=== PATIENT | male | born 1955 | race Caucasian/White ===

== ENCOUNTER 2016-11-28 07:35 | Inpatient (IN) | payer OTHER ==
[~2016-11-28] VITALS: Ht 180.3 cm; Wt 104.2 kg
[2016-11-28] VITALS (12 sets, daily range): BP systolic 83–122; BP diastolic 54–92; PULSE 83–108; RESP 18–22; TEMP 97.4–100; O2SAT 93–100
[2016-11-28] MEDS ORDERED: SODIUM CHLORIDE 0.9% FLUSH 5 ML FLUSH IVF PRN (07:45)
[2016-11-28] MEDS ORDERED: ASPIRIN 81 MG CHEW TAB PO ONE (07:45)
--- NOTE | 2016-11-28 08:03 | PD ---
HPI Chief Complaint: Chest Pain Time Seen by Provider: 07:45 Travel History International Travel<30 days: No Contact w/Intl Traveler<30days: No Traveled to known affect area: No History of Present Illness HPI 61-year-old male with history of COPD, brought in by ambulance as a cardiac alert for evaluation of chest pain, shortness of breath, and abnormal EKG. The patient reports that before going to sleep last night he ate a sandwich and afterwards he felt and indigestion type feeling in his abdomen that radiated up into his chest and bilateral shoulders. Symptoms resolved and he was able to go to sleep. When he awoke this morning his symptoms returned. He was given one spray of sublingual nitroglycerin by EMS with some improvement in symptoms. Upon arrival to the emergency department the patient is in obvious distress secondary to chest pain. He is diaphoretic. The symptoms resolved approximately 5 minutes after arrival and the patient was able to give more history. He denies history of cardiac disease. There is family history of cardiac disease. He is a smoker. He is having some shortness of breath. No paresthesias or motor deficits. PFSH Past Medical History COPD: Yes Diminished Hearing: Yes Social History Alcohol Use: Yes ([place] ) Tobacco Use: Yes Substance Use: No Allergies-Medications (Allergen,Severity, Reaction): Coded Allergies: No Known Allergies (Unverified , 11/28/16) Review of Systems Except as stated in HPI: all other systems reviewed are Neg Physical Exam Narrative GENERAL: Well-developed, well-nourished, moderate distress secondary to pain, no respiratory distress. SKIN: Pale, diaphoretic. HEAD: Atraumatic. Normocephalic. EYES: Pupils equal and round. No scleral icterus. No injection or drainage. ENT: No nasal bleeding or discharge. NECK: Trachea midline. No JVD. CARDIOVASCULAR: Regular rate and rhythm. Distal pulses brisk and equal bilaterally. RESPIRATORY: No accessory muscle use. Clear to auscultation. Breath sounds equal bilaterally. GASTROINTESTINAL: Abdomen soft, non-tender, nondistended. MUSCULOSKELETAL: No obvious deformities. No clubbing. No cyanosis. No edema. NEUROLOGICAL: Awake and alert. No obvious cranial nerve deficits. Motor grossly within normal limits. Normal speech. PSYCHIATRIC: Appropriate mood and affect; insight and judgment normal. Data Data Last Documented VS Vital Signs Date Time Temp Pulse Resp B/P Pulse Ox O2 Delivery O2 Flow Rate FiO2 11/28/16 07:54 97.4 102 22 116/67 100 Nasal Cannula 4 104/77 Orders Basic Metabolic Panel (Bmp) (11/28/16 07:45) Ckmb (Isoenzyme) Profile (11/28/16 07:45) Complete Blood Count With Diff (11/28/16 07:45) Magnesium (Mg) (11/28/16 07:45) Prothrombin Time / Inr (Pt) (11/28/16 07:45) Act Partial Throm Time (Ptt) (11/28/16 07:45) Troponin I (11/28/16 07:45) Lipase (11/28/16 07:45) Chest, Single Ap (11/28/16 07:45) Ecg Monitoring (11/28/16 07:45) Bilateral Bp Monitoring (11/28/16 07:45) Iv Access Insert/Monitor (11/28/16 07:45) Oximetry (11/28/16 07:45) Oxygen Administration (11/28/16 07:45) Aspirin Chew (Aspirin Chew) (11/28/16 07:45) Sodium Chloride 0.9% Flush (Ns Flush) (11/28/16 07:45) Admit Order (Ed Use Only) (11/28/16 08:03) I-Stat Creatinine (11/28/16 07:50) I-Stat Profile (11/28/16 07:50) CKMB (11/28/16 08:45) CKMB% (11/28/16 08:45) Labs Laboratory Tests Test 11/28/16 07:45 Blood Type O NEGATIVE Antibody Screen NEGATIVE Crossmatch Leukocyte-Reduced Red Blood Cells Blood Bank Comment MDM Medical Decision Making Medical Screen Exam Complete: Yes Emergency Medical Condition: Yes Interpretation(s) EKG: Sinus, rate 95, normal axis, normal intervals, ST depressions in inferior and lateral precordial leads Differential Diagnosis UT, ACS, PE, dissection, pneumonia, pericarditis Narrative Course The patient arrives pale and diaphoretic and is in significant distress secondary to pain. After about 5 minutes of arrival, symptoms seem to have resolved. Several minutes later his symptoms recurred. I discussed this with on-call pararescue craftsman Dr. Almonte who was also able to review the EKG. Given the patient's symptoms with EKG findings suggestive of ischemia, STEMI alert was called for emergent cardiac cath. The patient was made aware of this plan. Diagnosis Primary Impression: Chest pain Qualified Code: R07.9 - Chest pain, unspecified type Additional Impression: Abnormal EKG Admitting Information Admitting Physician Requests: Admit Jefry Rico MD Nov 28, 2016 08:03
[2016-11-28] MEDS ORDERED: IOHEXOL 350 MG/ML 50 ML BTL (for Cath Lab) OTHER ONE (08:10)
[2016-11-28] MEDS ORDERED: IOHEXOL 350 MG/ML 100 ML BTL (for Cath Lab) OTHER ONE (08:10)
[2016-11-28] MEDS ORDERED: HEPARIN-NS/PF INJ 500 ML ONE (08:15)
--- NOTE | 2016-11-28 08:15 | RADRPT ---
EXAM DATE/TIME: 11/28/2016 07:49 [facility] COMPARISON: No previous studies available for comparison. INDICATIONS : Chest pain and very short of breath, STEMI alert MEDICAL HISTORY : None. SURGICAL HISTORY : None. ENCOUNTER: Initial ACUITY: 1 day PAIN SCORE: 10/10 LOCATION: Bilateral chest FINDINGS: There is moderate congestive failure with cardiomegaly interstitial edema. There is no pleural effus ion or pneumothorax. CONCLUSION: Cardiomegaly with moderate congestive failure. Maicol Mccloud MD FACR on November 28, 2016 at 8:12 Board Certified Radiologist. This report was verified electronically.
[2016-11-28 08:25] LABS: I-STAT POTASSIUM 4.1 MMOL/L (3.5-4.9); I-STAT SODIUM 144 MMOL/L (138-146)
[2016-11-28] MEDS ORDERED: MIDAZOLAM HCL 2 MG/2 ML VIAL ONE (08:26)
[2016-11-28] MEDS ORDERED: STERILE WATER FOR INJECTION 10 ML VIAL ONE (08:30)
[2016-11-28] MEDS ORDERED: BIVALIRUDIN 250 MG VIAL ONE (08:30)
[2016-11-28 08:40] LABS: ANION GAP 16 MEQ/L (5-15); BLOOD UREA NITROGEN 36 MG/DL (7-18); CHLORIDE 113 MEQ/L (98-107); GLOMERULAR FILTRATION RATE 46 ML/MIN (>89); MAGNESIUM 2.4 MG/DL (1.5-2.5); POTASSIUM 4.2 MEQ/L (3.5-5.1); SODIUM (NA) 143 MEQ/L (136-145)
[2016-11-28 08:48] LABS: CREATINE KINASE 164 U/L (39-308)
[2016-11-28] MEDS ORDERED: FUROSEMIDE 40 MG/4 ML VIAL ONE (08:50)
[2016-11-28] MEDS ORDERED: HEPARIN-D5W INJ 250 ML ONE (08:59)
[2016-11-28 09:06] LABS: AUTOMATED NEUTROPHIL # 0.4 TH/MM3 (1.8-7.7); BASOPHIL % 0.5 % (0.0-2.0); EOSINOPHIL % 0.1 % (0.0-4.0); LYMPH % 66.8 % (9.0-44.0); LYMPHOCYTE # 1.2 TH/MM3 (1.0-4.8); MEAN CELL VOLUME 108.2 FL (80.0-100.0); MEAN CORPUSCULAR HEMOGLOBIN 36.7 PG (27.0-34.0); MEAN CORPUSCULAR HGB CONC 33.9 % (32.0-36.0); MONO % 7.2 % (0.0-8.0); NEUT % 25.4 % (16.0-70.0); PLATELET COUNT 285 TH/MM3 (150-450); RED BLOOD COUNT 1.01 MIL/MM3 (4.50-5.90); RED CELL DISTRIBUTION WIDTH 22.5 % (11.6-17.2); WHITE BLOOD COUNT 1.7 TH/MM3 (4.0-11.0)
[2016-11-28 09:11] LABS: HEMATOCRIT 10.9 % (39.0-51.0); HEMO FLAGS AUTO DIFF
[2016-11-28 09:15] LABS: APTT (PATIENT) 23.5 SEC (24.3-30.1); CKMB 7.2 NG/ML (0.5-3.6); INTERNATIONAL NORMALIZED RATIO 1.3 RATIO; PROTHROMBIN TIME - PATIENT 14.7 SEC (9.8-11.6)
[2016-11-28] MEDS ORDERED: ONDANSETRON HCL 4 MG/2 ML VIAL IV PRN ×2 (09:15→10:45)
[2016-11-28] MEDS ORDERED: METOCLOPRAMIDE HCL 10 MG/2 ML VIAL IV PRN (09:15)
[2016-11-28] MEDS ORDERED: LORazepam 2 MG/ML VIAL IV PRN (09:15)
[2016-11-28] MEDS ORDERED: SODIUM CHLOR 0.9% 250 ML INJ 250 ML IV PRN (09:15)
[2016-11-28] MEDS ORDERED: ATROPINE SULFATE 1 MG/ML VIAL IV PRN (09:15)
[2016-11-28] MEDS ORDERED: LIDOCAINE HCL 1% 50 ML VIAL INFIL PRN (09:15)
[2016-11-28] MEDS ORDERED: BACITRACIN OINT 0.9 GM PKT TOP ONE (09:15)
[2016-11-28 09:44] LABS: POLYS (SEG NEUTROPHILS) 25 % (16-70); WBC DIFF SAMPLE 100
[2016-11-28] MEDS ORDERED: FUROSEMIDE 20 MG/2 ML VIAL IV PUSH ONE ×2 (09:45→18:30)
[2016-11-28] MEDS ORDERED: PAPAVERINE INJ 60 MG, NITROGLYCERIN INJ 100 MCG, DILTIAZEM INJ 100 MG in SODIUM CHLORID... IRRIGATION SCH (09:45)
[2016-11-28] MEDS ORDERED: CEFAZOLIN INJ 500 MG in SODIUM CHLORIDE 0.9% IRR BTL 500 ML IRRIGATION SCH (09:45)
[2016-11-28] MEDS ORDERED: INSULIN REGULAR (IV INFUSION) 100 UNITS in SODIUM CHLORIDE 0.9% INJ 100 ML IV SCH (09:45)
[2016-11-28] MEDS ORDERED: SODIUM CHLORIDE 0.9% FLUSH 5 ML FLUSH IV FLUSH PRN ×2 (09:45→10:45)
[2016-11-28] MEDS ORDERED: METOPROLOL TARTRATE 25 MG TAB PO SCH (09:45)
[2016-11-28] MEDS ORDERED: CHLORHEXIDINE GLUCONATE 4% SOLN 120 ML BTL TOPICAL SCH (09:45)
[2016-11-28 09:47] LABS: NEUTROPHIL # MANUAL DIFF 0.4 TH/MM3 (1.8-7.7)
[2016-11-28 09:48] LABS: PLATELET ESTIMATE SMEAR NORMAL (NORMAL); PLATELET MORPHOLOGY NORMAL (NORMAL); SCAN/DIFF FINAL DIFF MANUAL
[2016-11-28 10:15] LABS: INDIRECT BILIRUBIN 0.4 MG/DL (0.0-0.8); TOTAL BILIRUBIN ADULT 0.6 MG/DL (0.2-1.0)
[2016-11-28 10:20] LABS: BLOOD, URINE NEG (NEG); GLUCOSE,URINE NEG (NEG); KETONE, URINE NEG (NEG); NITRITE,URINE NEG (NEG); URINE COLOR LIGHT-YELLOW (YELLW/STRAW)
[2016-11-28 10:21] LABS: COMMENT (UR) CATH-CULT NOT IND; CULTURE IF INDICATED CATH CULTURE NOT IND
--- NOTE | 2016-11-28 10:40 | PD.CONS ---
HPI Service Critical Care Medicine Consult Requested By Dr. Almonte Reason for Consult CCM management Primary Care Physician Unknown History of Present Illness 61 yo male.. DOA 11/28/16. PMH LBP, tobaccoism, colon polyps, R ing hernia repair x2, C -spine x2 and occ ETOH ([place]) presents to ED with ongoing "burning " CP present for several weeks exacerbated today. At rest. Received NTG some relief. EKG changes, STT - inf and lat leads. Takes ASA daily since bro from "his aorta" Hgb low ~ 3. Brown stools acc to pt. Hx colon polys - benign 2 years ago w/VACath lab Cath - EF 35%; 90% LMain, 30% prox LAD, 95% mid LAD, 80% Cx, 20% OM1, 100% RCA. IABP placed augmanted ~110. Currently CP free on 5L NC Review of Systems Constitutional: COMPLAINS OF: Fatigue, Weight loss, DENIES: Fever, Weight gain Endocrine: DENIES: Polydipsia, Polyuria Eyes: DENIES: Blurred vision, Double Vision Ears, nose, mouth, throat: DENIES: Tinnitus, Epistaxis, Sinus Pain Respiratory: COMPLAINS OF: Shortness of breath, DENIES: Apneas, Cough, Sputum production Cardiovascular: COMPLAINS OF: Chest pain, Dyspnea on Exertion, DENIES: Palpitations, Syncope, Lower Extremity Edema Gastrointestinal: DENIES: Abdominal pain, Black stools, Bloody stools, Constipation, Nausea, Vomiting Genitourinary: DENIES: Urgency Musculoskeletal: COMPLAINS OF: Neck pain, DENIES: Back pain Integumentary: DENIES: Abnormal pigmentation Hematologic/lymphatic: DENIES: Bruising Immunologic/allergic: DENIES: Eczema Neurologic: DENIES: Abnormal gait Psychiatric: DENIES: Anxiety, Confusion Past Family Social History Allergies: Coded Allergies: No Known Allergies (Unverified , 11/28/16) Past Medical History Tobaccoism, Colon polyps DDD C-spine LBP Past Surgical History R ing hernia x 2 C3-5 C spine fusion Polypectomy x 2 Reported Medications ASA Active Ordered Medications reviewed in EMR Family History F - lung CA B- Aorta Social History 5 cig /day since age 18 Occ ETOH No IVDU Physical Exam Vital Signs Vital Signs Date Time Temp Pulse Resp B/P Pulse Ox O2 Delivery O2 Flow Rate FiO2 11/28/16 08:35 99 Nasal Cannula 4.00 11/28/16 08:35 99 4.00 11/28/16 07:54 97.4 102 22 116/67 100 Nasal Cannula 4 104/77 11/28/16 07:54 98 Nasal Cannula 4 11/28/16 07:51 22 100 4 11/28/16 07:38 108 22 116/67 Physical Exam GENERAL: 61 yo M, Crit ill in bed w/ IABP NAD SKIN: PAle and dry. No rash HEAD: Atraumatic. Normocephalic. EYES: Pupils equal and round 3 m b/l and rx. No scleral icterus. No injection or drainage. ENT: No nasal bleeding or discharge. Mucous membranes pink and moist. NECK: Trachea midline. No JVD. CARDIOVASCULAR: Regular rate and rhythm. S1, S2. IABP augmentation RESPIRATORY: No accessory muscle use. Clear to auscultation. Breath sounds equal bilaterally. GASTROINTESTINAL: Abdomen soft, non-tender, nondistended. Hypo BS+ MUSCULOSKELETAL: Extremities without significant edema. No obvious deformities. IABP in R groin C/D/I NEUROLOGICAL: Awake and alert. No obvious cranial nerve deficits. Motor grossly within normal limits. Five out of 5 muscle strength in the arms and legs. Normal speech. PSYCHIATRIC: Appropriate mood and affect; insight and judgment normal. Laboratory Laboratory Tests Test 11/28/16 11/28/16 11/28/16 11/28/16 07:45 08:45 08:55 09:02 Blood Type O NEGATIVE O NEGATIVE Antibody Screen NEGATIVE Crossmatch Leukocyte-Reduced Leukocyte-Reduced Red Blood Red Blood Cells Cells Blood Bank Comment White Blood Count 1.7 Red Blood Count 1.01 Hemoglobin 3.7 Bedside Hemoglobin Hematocrit 10.9 Bedside Hematocrit LESS THAN 15.0 Mean Corpuscular Volume 108.2 Mean Corpuscular Hemoglobin 36.7 Mean Corpuscular Hemoglobin 33.9 Concent Red Cell Distribution Width 22.5 Platelet Count 285 Mean Platelet Volume 8.5 Neutrophils (%) (Auto) 25.4 Lymphocytes (%) (Auto) 66.8 Monocytes (%) (Auto) 7.2 Eosinophils (%) (Auto) 0.1 Basophils (%) (Auto) 0.5 Neutrophils # (Auto) 0.4 Lymphocytes # (Auto) 1.2 Monocytes # (Auto) 0.1 Eosinophils # (Auto) 0.0 Basophils # (Auto) 0.0 CBC Comment AUTO DIFF Differential Total Cells 100 Counted Neutrophils % (Manual) 25 Lymphocytes % 73 Monocytes % 2 Neutrophils # (Manual) 0.4 Differential Comment FINAL DIFF MANUAL Platelet Estimate NORMAL Platelet Morphology Comment NORMAL Prothrombin Time 14.7 Prothromb Time International 1.3 Ratio Activated Partial 23.5 Thromboplast Time Fibrinogen 224 Bedside Sodium 144 Sodium Level 143 Bedside Potassium 4.1 Potassium Level 4.2 Bedside Chloride 112 Chloride Level 113 Carbon Dioxide Level 14.0 Anion Gap 16 Bedside Blood Urea Nitrogen 36 Blood Urea Nitrogen 36 Creatinine 1.54 Bedside Creatinine 1.2 Estimat Glomerular Filtration 46 Rate Bedside Glucose 151 Random Glucose 152 Calcium Level 7.8 Magnesium Level 2.4 Total Bilirubin 0.6 Direct Bilirubin 0.2 Indirect Bilirubin 0.4 Aspartate Amino Transf 94 (AST/SGOT) Alanine Aminotransferase 117 (ALT/SGPT) Alkaline Phosphatase 100 Total Creatine Kinase 164 Creatine Kinase MB 7.2 Troponin I 1.30 Total Protein 6.4 Albumin 3.3 Amylase Level 38 Lipase 100 Test 11/28/16 09:45 Urine Color LIGHT-YELLOW Urine Turbidity CLEAR Urine pH 5.0 Urine Specific [place] 1.021 Urine Protein NEG Urine Glucose (UA) NEG Urine Ketones NEG Urine Occult Blood NEG Urine Nitrite NEG Urine Bilirubin NEG Urine Urobilinogen LESS THAN 2.0 Urine Leukocyte Esterase NEG Urine RBC LESS THAN 1 Microscopic Urinalysis Comment CATH-CULT NOT IND Result Diagram: 11/28/16 0845 11/28/16 0845 Imaging Last Impressions Chest X-Ray 11/28/16 0745 Signed Impressions: Service Date/Time: Monday, November 28, 2016 07:49 - CONCLUSION: Cardiomegaly with moderate congestive failure. Maicol Mccloud MD FACR Assessment and Plan Assessment and Plan Neuro/Psych: ETOH Acetominophen for pain [place]/MSO4 for pn management Thiamine, folic/MVI daily CV 3V CAD CG shock Cath -EF 35%. Lmain 90%, prox LAD 30%, midLAD 95%, Cx 80%, OM1 20%, RCA 100% IABP 1:1 augmented ~ 110 CTS C/S Check FLP Pulm Resp insuff Tobacco NC sats > 92% ATc2cEH Tob cessation encouraged CXR - B/L inf/effusions/CM GI Elevated transaminases NPO Protonix GI proph Colace/Senna BM regimen Hemoccult stool GI c/s w/macro anemia B12, flolate, TSH, perismear House accurate I/O's in critical ill pt FEN Replace lytes as indiated Heme Macro Anemia Leukopenia Low plts Tx 2U PRBC Hemoccult stool Fe studies GI c/s ID Monitor for infection Renal KHALIF Cr 1.5 Urine lytes/U/S renal Recx BMP in AM MSK Bedrest Access PIV. CVL if indicated Proph GI- Protonix DVT - heparin Critical Care: The total critical care time was 65 minutes. Time to perform other separately billable procedures was not included in the critical care time. Code Status Full code Discussed Condition With Pt. Care plan discussed. All ?s answered Shailesh Skelton MD Nov 28, 2016 10:40
[2016-11-28] MEDS ORDERED: ACETAMINOPHEN 325 MG TAB PO PRN (10:45)
[2016-11-28] MEDS ORDERED: MORPHINE SULFATE 4 MG/ML INJ IV PRN (10:45)
[2016-11-28] MEDS ORDERED: MISCELLANEOUS NURSING INFORMATION XX SCH (10:45)
[2016-11-28] MEDS ORDERED: RESP: ALBUTEROL 2.5 MG/IPRATROPIUM 0.5 MG NEB (PRN) INH (10:45)
[2016-11-28] MEDS ORDERED: SENNOSIDES 8.6 MG TAB PO PRN (10:45)
[2016-11-28] MEDS ORDERED: CHLORHEXIDINE GLUCONATE 2 % 1 PACK (2 CLOTHS) TOP PRN (10:45)
--- NOTE | 2016-11-28 13:10 | MH ---
cc: WALLY COONEY DATE OF ADMISSION: 11/28/[address]. HISTORY OF PRESENT ILLNESS This is a 61-year-old gentleman with a history of COPD without prior history of known heart disease, who presented to the emergency department with acute onset of substernal chest pain. Late yesterday evening he developed indigestion associated with chest pain to bilateral shoulders. He went to sleep. This morning he awoke and his symptoms returned. He had initial relief with nitroglycerin but in the emergency department was in distress with chest pain, nausea, diaphoresis and hypotension. EKG showed acute coronary syndrome and STEMI Alert was initiated. PAST MEDICAL HISTORY 1. COPD. 2. Anemia. SOCIAL HISTORY Occasional alcohol use. Occasional tobacco use. Denies any drug use. ALLERGIES No known drug allergies. REVIEW OF SYSTEMS A 12-point review of systems was performed and negative unless otherwise noted in the history of present illness. PHYSICAL EXAMINATION VITAL SIGNS: Temperature 97, pulse 102, blood pressure 116/67 mmHg. GENERAL: Alert and oriented x3, in moderate distress. HEENT: Pupils are reactive to light and accommodation. Extraocular muscles are intact. NECK: No jugular venous distention. No thyromegaly. No lymphadenopathy. No carotid bruits. LUNGS: Clear to auscultation bilaterally. CARDIOVASCULAR: Regular rate and rhythm without murmurs, rubs or gallops. ABDOMEN: Nontender, nondistended. Good bowel sounds. No hepatosplenomegaly. EXTREMITIES: No clubbing, cyanosis or edema. Good peripheral pulses. NEUROLOGIC: Cranial nerves intact. Motor and sensory grossly intact. LABORATORY Hemoglobin 3.7, platelet count 285, WBC 1.7. Sodium 144, potassium 4.2, BUN 36, creatinine 1.54. Troponin 1.3. ASSESSMENT 1. Acute coronary syndrome, [place]. 2. COPD. 3. Anemia. 4. Neutropenia. PLAN The patient was brought emergently to the cardiac catheterization lab for possible revascularization. He will need an extensive workup for anemia. He denies any bleeding. Given his neutropenia this may be bone marrow involvement. Will order to stat. type and cross. MD PANDA Hdz/RONNY /9:16 AM 1:00 PM
--- NOTE | 2016-11-28 13:18 | MA ---
cc: WALLY COONYE MD DATE: 11/28/2016 PROCEDURE PERFORMED 1. Fluoroscopy with interpretation. 2. Coronary angiography. 3. Left heart catheterization. 4. Left ventriculography. 5. Ascending aortography. 6. Intraaortic balloon pump placement. METHOD The risks, benefits and alternatives were discussed with the patient. The patient understood and consented to the procedure. The patient was brought to the cardiac catheterization lab and placed on the catheterization table. Right groin was prepped and draped in usual sterile fashion. Right groin was anesthetized with 2% lidocaine. Right common femoral artery was cannulated and a 6-Georgian 11 cm sheath was placed without difficulty. LEFT HEART CATHETERIZATION A 6-[place]ian angled pigtail catheter was advanced across the aortic valve without difficulty. Intraoperative hemodynamics measured at 92/15 mmHg. Left ventricular end-diastolic pressure at 30 mmHg. No aortic stenosis by transaortic valve or pullback gradient. LEFT VENTRICULOGRAPHY Left ventriculography was performed in right anterior oblique view using 30 cc contrast injection with good opacification. The left ventricular ejection fraction was visually estimated at 35%. Global hypokinesis more pronounced at the mid inferior wall. CORONARY ANGIOGRAPHY The left coronary circulation was selectively engaged with a 6-Georgian XB LAD 4.0 guide catheter. Right coronary circulation was selectively engaged with a 6-Georgian diagnostic catheter. Angiography findings were as follows: 1. Left main has 90% stenosis with considerable dampening upon engagement. 2. Left anterior descending coronary proximally has minor luminal irregularities, midsegment has a 95% tubular stenosis. There is also tandem stenosis in the mid to distal segment smaller caliber size. 3. Left circumflex is a dominant vessel giving rise to left-sided posterior descending branch, proximal circumflex has 80% stenosis. There is two obtuse marginal branches, have minor luminal irregularities, left-sided posterior descending branch is widely patent. 4. The right coronary is smaller caliber size, occluded in the mid segment with right to right collateralization. ASCENDING AORTOGRAPHY The ascending aorta was not dilated. No evidence of dissection. Intraaortic balloon pump was then advanced to just below takeoff of left subclavian artery, one-to-one deployment was initiated. CONCLUSION 1. Severe left main and multivessel coronary artery disease. 2. Severely reduced global left ventricular systolic function. 3. Normal ascending aorta. 4. Successful intra-aortic balloon pump placement. 5. Elevated left-sided filling pressure. PLAN Patient will need emergent surgery, right now he is hemodynamically stable. We are going to actively transfuse blood. Cardiothoracic surgeon, Dr. Nuris Maher was consulted. We will obtain a 2-D echocardiogram. MD PANDA Hdz/PORTER /9:19 AM /1:02 PM
--- NOTE | 2016-11-28 13:51 | EKG ---
Date Performed: 11/28/2016 Time Performed: 07:47:59 PTAGE: 61 years EKG: SINUS TACHYCARDIA ST & T-WAVE ABNORMALITY, CONSIDER INFERIOR AND ANTEROLATERAL ISCHEMIA ABN ORMAL ECG NO PREVIOUS TRACING DOCTOR: Erik Jordan Interpretating Date/Time 11/28/2016 13:50:10
--- NOTE | 2016-11-28 14:51 | PD.CONS ---
HPI History of Present Illness This is a 61 year old male patient who came to the ER for evaluation of chest pain, shortness of breath and dizziness. He reports that he has been having some abdominal bloating and belching for the past several weeks. He thought he was constipated and took a couple of dulcolax for this. He did move his bowels afterwards, but continued to have the bloating and belching. Additionally, he complains of an intermittent lower abdominal pain that he describes as a severe pressure-like pain in his lower abdomen/suprapubic area that radiates up his chest and to his shoulders with burning pain x 3 days. When the pain occurs, he has associated shortness of breath, generalized weakness, and dizziness. He had worsening of this pain last night after eating a potted ham sandwich, but denies any nausea, vomiting, diarrhea, constipation, or obvious blood loss. He reports that his bowel movements are brown in color and that he has not had any melena or hematochezia. He states that when he lies down on his stomach, his symptoms seem to improve. He denies any hx of PUD and takes a daily ASA. He last had a colonoscopy about 2 years ago at the [facility] and had 5 polyps removed. He came to the ER for evaluation of symptoms, because he was much more weak and having more problems breathing with his pain this am and was brought to the ER. He was noted to have severe anemia with a Hgb of 3.7/10.9, MCV 108.2, MCHC 33.9. He has been given #2 units PRBC so far. He went to the dental laboratory technician [facility] were he was found to have severe disease to the left main and severe multivessel disease. He was placed on a IABP. GI has been consulted for further evaluation. (Carole Garcia) PFSH Past Medical History Colon polyps DDD Chronic pain COPD Past Surgical History Hernia repair x 2 Neck surgery Colonoscopy with polypectomy (Carole Garcia) Coded Allergies: No Known Allergies (Unverified , 11/28/16) Medications Allergies Coded Allergies Type Severity Reaction Last Updated Verified No Known Allergies 11/28/16 No Family History Father from lung cancer Mother had carotid artery disease Social History States that he has smoked for many years,trying to stop, down to 5 cigarettes per day. Rare ETOH use. (Carole Garcia) Review of Systems Constitutional: COMPLAINS OF: Fatigue, DENIES: Weight loss, Change in appetite Respiratory: COMPLAINS OF: Shortness of breath, DENIES: Cough Cardiovascular: COMPLAINS OF: Chest pain Gastrointestinal: COMPLAINS OF: Abdominal pain, Swelling of Abdomen, DENIES: Black stools, Bloody stools, Constipation, Diarrhea, Nausea, Vomiting, Anorexia , Hematemesis Musculoskeletal: COMPLAINS OF: Joint pain, Neck pain Integumentary: COMPLAINS OF: Abnormal pigmentation Hematologic/lymphatic: DENIES: Bruising Neurologic: DENIES: Headache Psychiatric: DENIES: Confusion (Carole Garcia) GI Exam Vitals I&O Vital Signs Date Time Temp Pulse Resp B/P Pulse Ox O2 Delivery O2 Flow Rate FiO2 11/28/16 13:00 88/57 11/28/16 12:00 83/57 11/28/16 12:00 99.5 87 20 83/57 95 11/28/16 11:30 95 Nasal Cannula 4.00 11/28/16 11:00 86/59 11/28/16 10:00 85/56 11/28/16 09:25 97.5 102 20 95/92 99 93/57 11/28/16 09:25 93/57 11/28/16 08:35 99 Nasal Cannula 4.00 11/28/16 08:35 99 4.00 11/28/16 07:54 97.4 102 22 116/67 100 Nasal Cannula 4 104/77 11/28/16 07:54 98 Nasal Cannula 4 11/28/16 07:51 22 100 4 11/28/16 07:38 108 22 116/67 Imaging Last Impressions Chest X-Ray 11/28/16 0745 Signed Impressions: Service Date/Time: Monday, November 28, 2016 07:49 - CONCLUSION: Cardiomegaly with moderate congestive failure. Maicol Mccloud MD FACR Laboratory Test 11/28/16 11/28/16 11/28/16 11/28/16 07:45 08:45 08:55 09:02 Blood Type O NEGATIVE O NEGATIVE Antibody Screen NEGATIVE Crossmatch Leukocyte-Reduced Leukocyte-Reduced Red Blood Red Blood Cells Cells Blood Bank Comment White Blood Count 1.7 TH/MM3 Red Blood Count 1.01 MIL/MM3 Hemoglobin 3.7 GM/DL Bedside Hemoglobin G/DL Hematocrit 10.9 % Bedside Hematocrit LESS THAN 15.0 % Mean Corpuscular Volume 108.2 FL Mean Corpuscular Hemoglobin 36.7 PG Mean Corpuscular Hemoglobin 33.9 % Concent Red Cell Distribution Width 22.5 % Platelet Count 285 TH/MM3 Mean Platelet Volume 8.5 FL Neutrophils (%) (Auto) 25.4 % Lymphocytes (%) (Auto) 66.8 % Monocytes (%) (Auto) 7.2 % Eosinophils (%) (Auto) 0.1 % Basophils (%) (Auto) 0.5 % Neutrophils # (Auto) 0.4 TH/MM3 Lymphocytes # (Auto) 1.2 TH/MM3 Monocytes # (Auto) 0.1 TH/MM3 Eosinophils # (Auto) 0.0 TH/MM3 Basophils # (Auto) 0.0 TH/MM3 CBC Comment AUTO DIFF Differential Total Cells 100 Counted Neutrophils % (Manual) 25 % Lymphocytes % 73 % Monocytes % 2 % Neutrophils # (Manual) 0.4 TH/MM3 Differential Comment FINAL DIFF MANUAL Platelet Estimate NORMAL Platelet Morphology Comment NORMAL Prothrombin Time 14.7 SEC Prothromb Time International 1.3 RATIO Ratio Activated Partial 23.5 SEC Thromboplast Time Fibrinogen 224 mg/dL Bedside Sodium 144 MMOL/L Sodium Level 143 MEQ/L Bedside Potassium 4.1 MMOL/L Potassium Level 4.2 MEQ/L Bedside Chloride 112 MMOL/L Chloride Level 113 MEQ/L Carbon Dioxide Level 14.0 MEQ/L Anion Gap 16 MEQ/L Bedside Blood Urea Nitrogen 36 MG/DL Blood Urea Nitrogen 36 MG/DL Creatinine 1.54 MG/DL Bedside Creatinine 1.2 MG/DL Estimat Glomerular Filtration 46 ML/MIN Rate Bedside Glucose 151 MG/DL Random Glucose 152 MG/DL Calcium Level 7.8 MG/DL Magnesium Level 2.4 MG/DL Total Bilirubin 0.6 MG/DL Direct Bilirubin 0.2 MG/DL Indirect Bilirubin 0.4 MG/DL Aspartate Amino Transf 94 U/L (AST/SGOT) Alanine Aminotransferase 117 U/L (ALT/SGPT) Alkaline Phosphatase 100 U/L Total Creatine Kinase 164 U/L Creatine Kinase MB 7.2 NG/ML Troponin I 1.30 NG/ML Total Protein 6.4 GM/DL Albumin 3.3 GM/DL Amylase Level 38 U/L Lipase 100 U/L Vitamin B12 Level 510 PG/ML Folate 17.9 NG/ML Thyroid Stimulating Hormone 0.766 uIU/ML 3rd Gen Test 11/28/16 11/28/16 09:45 10:53 Urine Color LIGHT-YELLOW Urine Turbidity CLEAR Urine pH 5.0 Urine Specific [place] 1.021 Urine Protein NEG mg/dL Urine Glucose (UA) NEG mg/dL Urine Ketones NEG mg/dL Urine Occult Blood NEG Urine Nitrite NEG Urine Bilirubin NEG Urine Urobilinogen LESS THAN 2.0 MG/DL Urine Leukocyte Esterase NEG Urine RBC LESS THAN 1 /hpf Microscopic Urinalysis Comment CATH-CULT NOT IND Urine Eosinophils NONE SEEN /HPF Urine Random Creatinine 28.7 MG/DL Urine Random Sodium 102 MEQ/L Blood Smear Pathologist Review Physical Examination HEENT: Normocephalic; atraumatic; no jaundice. CHEST: CTA CARDIAC: ST, hypotensive. IABP ABDOMEN: Soft, nondistended, mild lower abdominal/suprapubic tenderness no hepatosplenomegaly; bowel sounds are present in all four quadrants. EXTREMITIES: No clubbing, cyanosis, or edema. SKIN: Generalized pallor. WINDOWS SOFTWARE DEVELOPER: Lethargic and oriented times three. (Carole Garcia) Assessment and Plan Plan ASSESSMENT: - Severe anemia, macrocytic. On admission, HH 3.7/10.9, MCV 108.2, MCHC 33.9. B12 510, Folate 17.9. Pt has been having some bloating, belching, lower abdominal pain, but denies any obvious GI bleeding such as hematemesis , melena, or hematochezia. PPI. On heparin . S/P 2 units of PRBC so far. - Abdominal pain. Lower abdominal/suprapubic pain (pressure radiating to chest/ shoulders). - Elevated LFTs. Pt with elevated transaminases, neutropenia, anemia, coagulopathy, hypoalbuminemia on admission. US pending. Denies any ETOH abuse or known hx of liver cirrhosis/dz, although his labs would are suspicious for etoh or underlying liver dz- MCV 108.2 with B12 510, Folate 17.9. Hepatitis panel pending. Check OLGE, AMA, ASMA. Monitor LFTs. - CO, Cardiogenic shock, Severe multivessel disease. S/P Cardiac Cath (11/28/16)- ---> Severe left main, multivessel disease. IABP. CVT consulted for surgery. - KHALIF. Creat. 1.54, GFR 46. - COPD. Per primary. PLAN: - NPO for now - Cont. PPI - Agree with blood transfusion - H/H q6h x 3 - CBC, CMP in am - Await US liver - OLEG, ASMA, AMA - Pt is in cardiogenic shock with IABP and is unstable for endoscopic evaluation at this time unless there is obvious active GI bleeding - Supportive care - Further recommendations to follow based on results of above - PT seen and examined by Dr. Murguia and myself and this note is written on his behalf (Carole Garcia) Physician Comments Patient seen and examined Agree with above Continue with current supportive care Monitor labs Case discussed with Dr. Helton of cardiovascular surgery and workup is needed for the anemia Will consider an EGD based on his hospital course We'll suggest CT of the abdomen and pelvis with contrast but we will defer ordering to attending physician (Arnaldo Murguia MD) Carole Garcia Nov 28, 2016 14:51 Arnaldo Murguia MD Nov 28, 2016 22:14
--- NOTE | 2016-11-28 15:25 | RADRPT ---
EXAM DATE/TIME: 11/28/2016 12:18 [facility] COMPARISON: No previous studies available for comparison. INDICATIONS : Elevated liver function tests and increased creatinine. MEDICAL HISTORY : Chronic obstructive pulmonary disease. Dyspnea. Chest pain. SOB. Colon polyps. Degenerative disc disease. SURGICAL HISTORY : Cardiac cath. Right inguinal hernia repair x2. C3-C5 fusion. Polypectomy x2. ENCOUNTER: Initial ACUITY: 1 day PAIN SCORE: 0/10 LOCATION: Abdomen. MEASUREMENTS: LIVER: 18.7 cm length COMMON DUCT: 4 mm RIGHT KIDNEY: 11.1 x 4.7 x 5.7 cm LEFT KIDNEY: 11.0 x 5.7 x 6.5 cm SPLEEN: 9.4 cm length AORTA: 2.4cm maximal FINDINGS: LIVER: Echogenic without ductal dilatation. COMMON DUCT: No intraluminal mass or stone visualized. GALLBLADDER: Contains no stones, demonstrates no wall thickening or pericholecystic fluid. PANCREAS: Poorly seen. RIGHT KIDNEY: No hydronephrosis, stone or mass. LEFT KIDNEY: No hydronephrosis, stone or mass. SPLEEN: No focal lesion. AORTA: Poorly seen because of bowel gas. IVC: Poorly seen because of bowel gas. CONCLUSION: Negative for intrahepatic ductal dilatation. Negative for hydronephrosis. Maicol Mccloud MD FACR on November 28, 2016 at 15:23 Board Certified Radiologist. This report was verified electronically.
--- NOTE | 2016-11-28 15:28 | RADRPT ---
EXAM DATE/TIME: 11/28/2016 12:41 [facility] COMPARISON: No previous studies available for comparison. INDICATIONS : Preop cardiac surgery. MEDICAL HISTORY : Chronic obstructive pulmonary disease. Dyspnea. Chest pain. SOB. Colon poly ps. Degenerative disc disease. SURGICAL HISTORY : Cardiac cath. Right inguinal hernia repair x2. C3-C5 fusion. Polypectomy x2. ENCOUNTER: Initial ACUITY: 1 day PAIN SCORE: 0/10 LOCATION: Bilateral neck PEAK SYSTOLIC VELOCITIES (cm/sec): ICA/CCA RATIO: Right: 1.2 Left: 1.4 ICA: Right: 120 Left: 140 CCA: Right: 103 Left: 98 ECA: Right: 101 Left: 126 VERTEBRAL: Right: 107 antegrade Left: 118 antegrade Elevated flow velocities and ICA/CCA ratios have been found to correlate with increased degrees of vessel stenosis, calculated as percentage of diameter relative to a normal segment of distal ICA/CCA FINDINGS: RIGHT CAROTID: There is no evidence for a hemodynamically significant carotid stenosis. Minimal int imal hyperplasia is present with scattered calcific plaque. LEFT CAROTID: There is no evidence for a hemodynamically significant carotid stenosis. Minimal inti mal hyperplasia is present with scattered calcific plaque. VERTEBRAL ARTERIES: Flow is antegrade in both vertebral arteries. MISCELLANEOUS: There are no ancillary masses or adenopathy. CONCLUSION: Negative examination for a hemodynamically significant carotid stenosis. Maicol Mccloud MD FACR Board Certified Radiologist. This report was verified electronically.
[2016-11-28 15:30] LABS: APTT (PATIENT) 25.3 SEC (24.3-30.1)
--- NOTE | 2016-11-28 15:32 | RADRPT ---
EXAM DATE/TIME: 11/28/2016 13:14 [facility] COMPARISON: No previous studies available for comparison. INDICATIONS : Preop cardiac surgery. MEDICAL HISTORY : Chronic obstructive pulmonary disease. Dyspnea. Chest pain. SOB. Colon polyps . Degenerative disc disease. SURGICAL HISTORY : Cardiac cath. Right inguinal hernia repair x2. C3-C5 fusion. Polypectomy x2. ENCOUNTER: Initial ACUITY: 1 day PAIN SCORE: 0/10 LOCATION: Bilateral leg. TECHNIQUE: Venous ultrasound of the left and right leg was performed from the inguinal ligament t o the proximal calf. Real-time, color Doppler and spectral tracing, compression and augmentation leena hniques were used. FINDINGS: RIGHT LEG: There is normal compressibility of the deep venous system from the inguinal region to the proximal calf. No echogenic clot is seen in the lumen of the common femoral, femoral, popliteal, and posterior tibial veins. There is a normal response of the venous system to proximal and distal augmentation and respiration. LEFT LEG: There is normal compressibility of the deep venous system from the inguinal region to t he proximal calf. No echogenic clot is seen in the lumen of the common femoral, femoral, popliteal, and posterior tibial veins. There is a normal response of the venous system to proximal and distal a ugmentation and respiration. CONCLUSION: No evidence of DVT Homar Al MD on November 28, 2016 at 15:30 Board Certified Radiologist. This report was verified electronically.
--- NOTE | 2016-11-28 15:40 | RADRPT ---
EXAM DATE/TIME: 11/28/2016 13:27 [facility] COMPARISON: No previous studies available for comparison. INDICATIONS : Preop cardiac surgery. MEDICAL HISTORY : Chronic obstructive pulmonary disease. Dyspnea. Chest pain. SOB. Colon polyps. Degenerative disc di sease. SURGICAL HISTORY : Cardiac cath. Right inguinal hernia repair x2. C3-C5 fusion. Polypectomy x2. ENCOUNTER: Initial ACUITY: 1 day PAIN SCORE: 0/10 LOCATION: Bilateral leg. GREATER SAPHENOUS VEIN THIGH: PROXIMAL: Right 4 mm Left 5 mm MID: Right 4 mm Left 3 mm DISTAL: Right 3 mm Left 3 mm CALF: PROXIMAL: Right 2 mm Left 2 mm MID: Right 2 mm Left 2 mm DISTAL: Right 3 mm Left 3 mm FINDINGS: The venous system of the lower extremities are patent by color Doppler imaging. Measurements of the leg veins (in mm) are listed above. CONCLUSION: 1. Venous mapping as above Abiel Barrow MD on November 28, 2016 at 15:34 Board Certified Radiologist. This report was verified electronically.
--- NOTE | 2016-11-28 17:12 | EC ---
Study Study Date:11/28/2016 STUDY CONCLUSIONS SUMMARY - Left ventricle: The cavity size was normal. Wall thickness was normal. Systolic function was severely reduced by visual assessment. The estimated ejection fraction was in the range of 30% to 35%. Severe diffuse hypokinesis with regional variations. - Aortic valve: Mild regurgitation. - Mitral valve: Mild regurgitation. - Tricuspid valve: Mild regurgitation. - Pulmonary arteries: Systolic pressure was mildly increased. PA peak pressure: 41mm Hg (S). If LV function is below 40, please consider prescribing an ACEI or ARB or document rationale for non-use. PROCEDURE DATA STUDY STATUS: Elective. Procedure: Transthoracic echocardiography. Image quality was good. Scanning was performed from the parasternal, apical, and subcostal acoustic windows. Study completion: The patient tolerated the procedure well. Transthoracic echocardiography. M-mode, complete 2D, complete spectral Doppler, and color Doppler. Patient status: Inpatient. CARDIAC ANATOMY LEFT VENTRICLE: The cavity size was normal. Wall thickness was normal. Systolic function was severely reduced by visual assessment. The estimated ejection fraction was in the range of 30% to 35%. Severe diffuse hypokinesis with regional variations. AORTIC VALVE: Trileaflet; normal thickness leaflets. Doppler: Transvalvular velocity was within the normal range. There was no stenosis. Mild regurgitation. AORTA: Aortic root: The aortic root was normal in size. MITRAL VALVE: Structurally normal valve. Doppler: Transvalvular velocity was within the normal range. There was no evidence for stenosis. Mild regurgitation. LEFT ATRIUM: The atrium was normal in size. RIGHT VENTRICLE: The cavity size was normal. Wall thickness was normal. PULMONIC VALVE: Doppler: Transvalvular velocity was within the normal range. There was no evidence for stenosis. No regurgitation. TRICUSPID VALVE: Structurally normal valve. Doppler: Transvalvular velocity was within the normal range. Mild regurgitation. PULMONARY ARTERY: Systolic pressure was mildly increased. RIGHT ATRIUM: The atrium was normal in size. PERICARDIUM: There was no pericardial effusion. SYSTEMIC VEINS: Inferior vena cava: The vessel was normal in size. BASIC MEASUREMENTS ADULT Normal Left ventricle LV internal dimension, ED, chordal level, *59.1 mm 43-52 PLAX LV internal dimension, ES, chordal level, *50.7 mm 23-38 PLAX Fractional shortening, chordal level, PLAX *14 % >29 LV posterior wall thickness, ED 10.2 mm IVS/LVPW ratio, ED 0.97 <1.3 Ventricular septum Septal thickness, ED 9.93 mm Aortic valve Leaflet separation *29 mm 15-26 Right ventricle RV internal dimension, ED, PLAX 32.6 mm 19-38 BASIC MEASUREMENTS ADULT Normal Aortic valve Leaflet separation *29 mm 15-26 Aorta Root diameter, ED 35 mm 20-37 Left atrium Anterior-posterior dimension, ES *44 mm 19-40 LA/aortic root ratio 1.26 DOPPLER MEASUREMENTS ADULT Normal Main pulmonary artery Pressure, S *41 mm Hg =30 Tricuspid valve Regurgitant peak velocity 280 cm/s Peak RV-RA gradient, S 31 mm Hg Systemic veins Estimated CVP 10 mm Hg Right ventricle RV pressure, S *41 mm Hg <30 LEGEND: Mean values are shown as u=mean value. Asterisk (*) ball values outside specified normal range. Prepared and signed by Alan Almonte [id number]
[2016-11-28] MEDS: SODIUM CHLOR 0.9% 1000 ML INJ 1,000 ML IV SCH ×2 (17:28→22:55)
[2016-11-28 17:46] LABS: MEAN CELL VOLUME 99.1 FL (80.0-100.0); MEAN CORPUSCULAR HEMOGLOBIN 33.6 PG (27.0-34.0); MEAN CORPUSCULAR HGB CONC 33.9 % (32.0-36.0); PLATELET COUNT 247 TH/MM3 (150-450); RED BLOOD COUNT 1.63 MIL/MM3 (4.50-5.90); RED CELL DISTRIBUTION WIDTH 24.8 % (11.6-17.2); WHITE BLOOD COUNT 2.3 TH/MM3 (4.0-11.0)
[2016-11-28 17:54] LABS: APTT (PATIENT) 26.4 SEC (24.3-30.1); HEMATOCRIT 16.2 % (39.0-51.0); REVIEW FLAG FINAL
--- NOTE | 2016-11-28 18:34 | RADRPT ---
EXAM DATE/TIME: 11/28/2016 17:43 [facility] COMPARISON: No previous studies available for comparison. INDICATIONS : Abdominal pain. MEDICAL HISTORY : Anemia. Colon polyps. SURGICAL HISTORY : Cardiac cath. Right inguinal hernia repair x2. C3-C5 fusion. Polypectomy x2. ENCOUNTER: Initial ACUITY: 1 day PAIN SCORE: Non-responsive. LOCATION: all quadrants. FINDINGS: Supine view of the abdomen was performed. There is gaseous distention of small and large bowel. No fr ee air identified. Rectal temperature probe noted. No acute bony abnormalities. CONCLUSION: 1. Ileus, predominantly colonic. No free air identified. Shakir Meier MD on November 28, 2016 at 18:32 Board Certified Radiologist. This report was verified electronically.
[2016-11-28] MEDS ORDERED: SODIUM CHLORIDE 0.9% FLUSH 5 ML FLUSH IV FLUSH SCH (21:00)
[2016-11-28] MEDS: ACETAMINOPHEN/HYDROcodone 325 MG/5 MG TAB PO PRN (21:13)
[2016-11-28] MEDS: DOCUSATE SODIUM 100 MG CAP PO SCH (21:13)
[2016-11-28] MEDS: SODIUM CHLORIDE 0.9% FLUSH 5 ML FLUSH IV FLUSH SCH (21:14)
[2016-11-28 23:55] LABS: APTT (PATIENT) 29.2 SEC (24.3-30.1)
[2016-11-29] VITALS (11 sets, daily range): BP systolic 84–121; BP diastolic 51–66; PULSE 75–84; RESP 16–20; TEMP 97.5–99.9; O2SAT 92–95
[2016-11-29] MEDS: CHLORHEXIDINE GLUCONATE 2 % 1 PACK (2 CLOTHS) TOP SCH (04:00)
[2016-11-29 04:54] LABS: MEAN CELL VOLUME 94.1 FL (80.0-100.0); MEAN CORPUSCULAR HEMOGLOBIN 32.7 PG (27.0-34.0); MEAN CORPUSCULAR HGB CONC 34.7 % (32.0-36.0); PLATELET COUNT 196 TH/MM3 (150-450); RED BLOOD COUNT 2.17 MIL/MM3 (4.50-5.90); RED CELL DISTRIBUTION WIDTH 20.1 % (11.6-17.2); WHITE BLOOD COUNT 2.4 TH/MM3 (4.0-11.0)
[2016-11-29 05:17] LABS: BICARBONATE 21.5 MEQ/L (21.0-32.0); CALCIUM-PROTEIN CORRECTED 7.6 MG/DL (8.5-10.1); HDL CHOLESTEROL 25.7 MG/DL (40.0-60.0); MAGNESIUM 2.4 MG/DL (1.5-2.5); POTASSIUM 3.2 MEQ/L (3.5-5.1); TOTAL BILIRUBIN ADULT 1.5 MG/DL (0.2-1.0)
[2016-11-29 05:18] LABS: HEMO FLAGS AUTO DIFF
[2016-11-29 05:24] LABS: HEMATOCRIT 20.4 % (39.0-51.0)
[2016-11-29] MEDS ORDERED: POTASSIUM CHLORIDE 20 MEQ CONTROLLED RELEASE TAB PO ONE ×2 (06:30→08:00)
[2016-11-29] MEDS: ACETAMINOPHEN/HYDROcodone 325 MG/5 MG TAB PO PRN ×2 (06:33→23:30)
[2016-11-29 07:51] LABS: CORRECTED NUCLEATED RBC 3 /100 WBC (0-0); POLYS (SEG NEUTROPHILS) 10 % (16-70); WBC DIFF SAMPLE 100
[2016-11-29 07:57] LABS: NEUTROPHIL # MANUAL DIFF 0.2 TH/MM3 (1.8-7.7); PLATELET ESTIMATE SMEAR NORMAL (NORMAL); PLATELET MORPHOLOGY NORMAL (NORMAL); SCAN/DIFF FINAL DIFF MANUAL
[2016-11-29 07:58] LABS: KERATOCYTES 1+ (NORMAL)
--- NOTE | 2016-11-29 08:56 | MB ---
cc: NURIS MAHER DATE OF CONSULTATION 11/28/2016 DATE OF 1955 HISTORY OF THE PRESENT ILLNESS A 61-year-old male STEMI alert brought in by [facility] with chest pain. Says about 8 p.m. last night he ate a sandwich and afterwards he felt like he had significant indigestion and abdominal discomfort but then also he had some chest discomfort that radiated to both shoulders. He was able to go to sleep but when he woke up the pain returned. He was given some nitro which improved some of the symptoms. He was diaphoretic upon admission per the ED note. Cardiac risk factors include age. FAMILY HISTORY Tobacco abuse. HISTORY The patient underwent STEMI alert, underwent heart catheterization that showed left main 90%, proximal LAD 30%, mid-distal LAD 95%. The circ with 80%, OM 20 and the right coronary artery 100% occluded. EF approximately 35%. He was having ongoing chest pain. Therefore Dr. Almonte placed an intra-aortic balloon pump into the right groin where he is augmenting at 1:1. His augmentation pressure is 93. He does have faint palpable pedal pulses. We were consulted to evaluate for surgery. The patient was also then found to have significant anemia. The initial bedside ___ showed a hematocrit of 15, however, once the lab was drawn his hemoglobin was 3.7 with hematocrit 10.9. He was then immediately typed and crossed for 4 units of packed RBCs. He denies having any black tarry stools. He denies vomiting any blood. He does admit to taking aspirin on a daily basis. He has had a history of a colonoscopy couple years ago at the [facility] and had some polyps removed which were benign. Currently the patient at first evaluation was still diaphoretic, but then improved once the intra-aortic balloon pump was placed. PAST MEDICAL HISTORY The patient's past medical history: 1. COPD. 2. Degenerative disc disease of the lower spine. 3. Tobacco abuse. 4. History of colon polyps. PAST SURGICAL HISTORY Surgery include: 1. Right inguinal hernia repair times two. 2. C3 through C5 cervical spine fusion. 3. Polypectomy. ALLERGIES NO KNOWN ALLERGIES. MEDICATIONS Home medications include: Aspirin. FAMILY HISTORY Father from lung cancer. SOCIAL HISTORY No IV drug use. His closest relative is his brother [place]. Occasional alcohol. He has been smoking since age 12 up to one to two packs per day. He is down to five cigarettes a day. REVIEW OF SYSTEMS GENERAL: No night sweats, fever, heat or cold intolerance. SKIN: No psoriasis, itching or hives. HEENT: No blurred vision, hearing loss. RESPIRATORY: Positive for shortness of breath, cough. CARDIOVASCULAR: As above in the history of present illness. GASTROINTESTINAL: No recent nausea or vomiting, diarrhea other than some belching. GENITOURINARY: No burning, frequency, urgency. CENTRAL NERVOUS SYSTEM: No history of TIA, CVA, seizure disorder. ENDOCRINOLOGY: No history of hypothyroidism and/or diabetes. PHYSICAL EXAMINATION GENERAL: Very critically ill male lying in bed with an intra-aortic balloon pump that has been placed in the right groin. VITAL SIGNS: Current blood pressure 116/70, heart rate of 102, afebrile. O2 saturation 99% on 4 liters. The patient was given some Lasix in the labor representative. The patient is very ill appearing, somewhat diaphoretic. HEENT: Head is normocephalic, atraumatic. Pupils equal and reactive. No scleral icterus. No injection or drainage. NECK: Supple. No JVD. CARDIOVASCULAR: Heart sounds S1-S2, regular rate and rhythm augmentating at a 1:1. Right groin site is without hematoma or oozing or bleeding. LUNGS: Diminished in the bases with a few basilar crackles. ABDOMEN: Slightly obese, soft. He has some mild tenderness in the left lower quadrant upon examination. EXTREMITIES: Reveal no cyanosis, clubbing or edema. NEUROLOGICAL: He is alert and oriented times four with no cranial nerve deficits. LABORATORY DATA Lab work again showed a hemoglobin of 3.7, hematocrit of 10.9, white cell count 1.7, platelet count 285, neutrophils of 0.4. Peripheral smear is pending. Sodium 144, potassium 1.3, BUN of 36 with a creatinine of 1.54. Glucose 152. Magnesium level 2.4. AST is 94, ALT 117. Troponin 1.30. Amylase 38. TSH 0.7. Folate 17. Vitamin B12 510. INR 1.3, PTT of 23, fibrinogen 224. Hep panel B and C pending. IMAGING Chest x-ray shows cardiomegaly with moderate CHF. EKG shows T-wave inversion in the lateral leads, also inferior leads. IMPRESSION AND PLAN 1. This is a 61-year-old male with acute ST-segment myocardial infarction, elevated troponins, abnormal EKG, multivessel disease with 90% left main, EF of 35%, status post intra-aortic balloon pump placed. At this time the patient is critically ill and will require improvement in his hemodynamic status also involving the cause of his severe anemia, also leukopenia. Peripheral smear pending. 2. Also GI consultation pending with macro anemia. B12, folate, TSH, peripheral smear again pending. He is receiving 2 units of packed Rbc's. Iron studies pending. Hepatitis panel pending. Hemoccult stool pending. 3. Acute kidney injury. Renal ultrasound pending. At this time the patient is critically ill, will need to be stabilized on hematology point before going to surgery. Cardiac films have been reviewed by Dr. Nuris Maher pending coronary artery bypass grafting once evaluation of his severe anemia has been completed. DICTATED BY: MIMI Alcantar MD RICHMOND Diaz/KK /12:43 PM /8:55 AM
[2016-11-29] MEDS ORDERED: POTASSIUM CHLOR 20 MEQ PREMIX 100 ML IV PRN (09:00)
[2016-11-29] MEDS ORDERED: POTASSIUM CL 40 MEQ/30 ML LIQ UDC PO/TUBE PRN (09:00)
--- NOTE | 2016-11-29 09:02 | PD.CARD.PN ---
Subjective Subjective Remarks CP free bloated IABP in place Objective Medications Active Medications Acetaminophen (Tylenol) 650 mg Q6H PRN PO; Start 11/28/16 at 10:45 Acetaminophen/ Hydrocodone Bitart ([place] 5-325 Mg) 1 tab Q4H PRN PO Last administered on 11/29/16 06:33; Admin Dose 1 TAB; Start 11/28/16 at 10:45 Atropine Sulfate 0.5 mg 0.5 mg UNSCH PRN IV; Start 11/28/16 at 09:15 Bacitracin 0.9 gm 0.9 gm ONCE ONCE TOP; Start 11/28/16 at 09:15; Stop 11/28/16 at 09:35; Status DC Chlorhexidine Gluconate (Chlorhexidine 2% Cloth) 3 pack UNSCH PRN TOP; Start at 10:45 Chlorhexidine Gluconate (Chlorhexidine 2% Cloth) 3 pack Taper DAILY@04 TOP; Start 11/29/16 at 04:00; Stop 11/25/17 at 03:59 Docusate Sodium (Colace) 100 mg BID PO Last administered on 11/28/16 21:13; Admin Dose 100 MG; Start 11/28/16 at 21:00 Furosemide (Lasix Inj) 20 mg ONCE ONCE IV PUSH Last administered on 11/28/16 10:50; Admin Dose 20 MG; Start 11/28/16 at 09:45; Stop 11/28/16 at 09:46; Status DC Furosemide (Lasix Inj) 20 mg ONCE ONCE IV PUSH Last administered on 11/28/16 22:15; Admin Dose 20 MG; Start 11/28/16 at 18:30; Stop 11/28/16 at 18:31; Status DC Heparin Sodium/ Dextrose (Heparin-D5W Inj) 250 ml @ As Directed STK-MED ONCE .ROUTE; Start 11/28/16 at 08:59; Stop 11/28/16 at 09:00; Status DC Heparin Sodium/ Dextrose (Heparin-D5W Inj) 250 ml @ 0 mls/hr TITRATE IV; Start 11/28/16 at 10:00 Influenza Virus Vaccine (Flu (Quadrivalent) Vaccine Inj) 0.5 ml ONCE ONCE IM; Start 11/29/16 at 10:00; Stop 11/29/16 at 10:01 IV Flush (NS Flush) 2 ml BID IV FLUSH; Start 11/28/16 at 21:00; Stop 11/28/16 at 21:00; Status DC IV Flush (NS Flush) 2 ml BID IV FLUSH Last administered on 11/28/16t 21:14; Admin Dose 2 ML; Start 11/28/16 at 21:00 IV Flush (NS Flush) 2 ml UNSCH PRN IV FLUSH; Start 11/28/16 at 10:45 IV Flush 2 ml 2 ml UNSCH PRN IV FLUSH; Start 11/28/16 at 09:45; Stop 11/28/16 at 10:51; Status DC Lidocaine HCl (Xylocaine 1% Inj (50 ml)) 10 ml UNSCH PRN INFIL; Start 11/28/16 at 09:15; Stop 11/29/16 at 09:14 Lorazepam (Ativan Inj) 0.5 mg UNSCH PRN IV; Start 11/28/16 at 09:15; Stop 11/29 at 09:14 Metoclopramide HCl (Reglan Inj) 10 mg Q4H PRN IV; Start 11/28/16 at 09:15 Miscellaneous Information 1 [id number]; Start 11/28/16 at 10:45 Morphine Sulfate (Morphine Inj) 2 mg Q2H PRN IV; Start 11/28/16 at 10:45 Ondansetron HCl (Zofran Inj) 4 mg Q4H PRN IV; Start 11/28/16 at 09:15; Stop at 10:52; Status DC Ondansetron HCl (Zofran Inj) 4 mg Q6H PRN IV; Start 11/28/16 at 10:45 Pantoprazole Sodium (Protonix Inj) 40 mg DAILY IV; Start 11/29/16 at 09:00 Potassium Chloride (KCl) 40 meq NOW ONCE PO Last administered on 11/29/16 06: 33; Admin Dose 40 MEQ; Start 11/29/16 at 06:30; Stop 11/29/16 at 06:31; Status DC Potassium Chloride (KCl) 40 meq ONCE ONCE PO; Start 11/29/16 at 08:00; Stop at 08:00; Status DC Sennosides (Senokot) 17.2 mg Q12H PRN PO; Start 11/28/16 at 10:45 Sodium Chloride (NS 1000 ml Inj) 1,000 ml @ 84 mls/hr [id number] IV Last administered on 11/28/16t 17:28; Admin Dose 84 MLS/HR; Start 11/28/16 at 11:00 Sodium Chloride (NS 250 ml Inj) 250 ml @ 500 mls/hr ONCE PRN IV; Start at 09:15; Stop 11/29/16 at 09:14 Vital Signs / I&O Vital Signs Date Time Temp Pulse Resp B/P Pulse Ox O2 Delivery O2 Flow Rate FiO2 11/29/16 08:00 94 Nasal Cannula 2.00 11/29/16 08:00 97.6 84 20 86/51 94 11/29/16 08:00 84 11/29/16 08:00 86/57 11/29/16 07:36 94 Nasal Cannula 2.00 11/29/16 06:00 86/59 11/29/16 05:00 89/61 11/29/16 04:00 87/59 11/29/16 04:00 97.9 76 20 121/56 94 87/59 11/29/16 03:00 88/56 11/29/16 03:00 92 Nasal Cannula 2.00 11/29/16 03:00 75 11/29/16 03:00 98.2 75 16 88/56 92 11/29/16 02:00 86/60 11/29/16 01:00 87/56 11/29/16 00:00 84/55 11/29/16 00:00 99.4 80 18 106/66 94 84/56 11/28/16 23:00 93 Nasal Cannula 2.00 11/28/16 23:00 100.0 88 18 92/61 93 11/28/16 23:00 92/61 11/28/16 23:00 83 11/28/16 22:33 100.0 90 18 91/63 95 11/28/16 22:00 87/60 11/28/16 21:00 88/61 11/28/16 20:46 97 Nasal Cannula 2.00 11/28/16 20:00 99.8 92 18 122/68 98 11/28/16 20:00 100.0 92 18 122/68 98 89/61 11/28/16 20:00 89/61 11/28/16 19:00 88 11/28/16 19:00 88 11/28/16 19:00 91/54 11/28/16 19:00 99.8 92 18 91/54 97 11/28/16 19:00 97 Nasal Cannula 2.00 11/28/16 18:00 94/63 11/28/16 17:00 90/59 11/28/16 16:00 86/58 11/28/16 16:00 99.6 85 20 86/58 99 11/28/16 14:00 81/60 11/28/16 13:00 88/57 11/28/16 12:00 83/57 11/28/16 12:00 99.5 87 20 83/57 95 11/28/16 11:30 95 Nasal Cannula 4.00 11/28/16 11:00 86/59 11/28/16 10:00 85/56 11/28/16 09:25 97.5 102 20 95/92 99 93/57 11/28/16 09:25 93/57 I/O 11/28/16 11/28/16 11/28/16 11/29/16 11/29/16 11/29/16 07:00 15:00 23:00 07:00 15:00 23:00 Intake Total 1989 ml 2964 ml Output Total 2250 ml 1050 ml Balance -261 ml 1914 ml Intake Oral 1000 ml 1200 ml IV Total 239 ml 1017 ml Packed Cells 750 ml 747 ml Output Urine Total 2250 ml 1050 ml # Bowel Movements 0 0 Physical Exam GENERAL: SKIN: Warm and dry. HEAD: Normocephalic. EYES: No scleral icterus. No injection or drainage. NECK: Supple, trachea midline. No JVD or lymphadenopathy. CARDIOVASCULAR: Regular rate and rhythm without murmurs, gallops, or rubs. RESPIRATORY: Breath sounds equal bilaterally. No accessory muscle use. GASTROINTESTINAL: Abdomen soft, non-tender, nondistended. MUSCULOSKELETAL: No cyanosis, or edema. BACK: Nontender without obvious deformity. No CVA tenderness. Laboratory Laboratory Tests Test 11/28/16 11/28/16 11/28/16 11/28/16 09:02 09:45 10:53 11:46 Crossmatch Leukocyte-Reduced Red Blood Cells Blood Bank Comment Urine Color LIGHT-YELLOW Urine Turbidity CLEAR Urine pH 5.0 Urine Specific [place] 1.021 Urine Protein NEG mg/dL Urine Glucose (UA) NEG mg/dL Urine Ketones NEG mg/dL Urine Occult Blood NEG Urine Nitrite NEG Urine Bilirubin NEG Urine Urobilinogen LESS THAN 2.0 MG/DL Urine Leukocyte Esterase NEG Urine RBC LESS THAN 1 /hpf Microscopic Urinalysis Comment CATH-CULT NOT IND Urine Eosinophils NONE SEEN /HPF Urine Random Creatinine 28.7 MG/DL Urine Random Sodium 102 MEQ/L Blood Smear Pathologist Review Hepatitis A IgM Antibody NEGATIVE Hepatitis B Surface Antigen NEGATIVE Hepatitis B Core IgM Antibody NEGATIVE Hepatitis C Antibody NEGATIVE Test 11/28/16 11/28/16 11/28/16 11/28/16 15:00 15:55 17:36 23:00 Activated Partial 25.3 SEC 26.4 SEC 29.2 SEC Thromboplast Time Nasal Screen MRSA (PCR) NEGATIVE White Blood Count 2.3 TH/MM3 Red Blood Count 1.63 MIL/MM3 Hemoglobin 5.5 GM/DL Hematocrit 16.2 % Mean Corpuscular Volume 99.1 FL Mean Corpuscular Hemoglobin 33.6 PG Mean Corpuscular Hemoglobin 33.9 % Concent Red Cell Distribution Width 24.8 % Platelet Count 247 TH/MM3 Mean Platelet Volume 8.5 FL Test 11/29/16 11/29/16 04:15 08:15 White Blood Count 2.4 TH/MM3 Red Blood Count 2.17 MIL/MM3 Hemoglobin 7.1 GM/DL Hematocrit 20.4 % Mean Corpuscular Volume 94.1 FL Mean Corpuscular Hemoglobin 32.7 PG Mean Corpuscular Hemoglobin 34.7 % Concent Red Cell Distribution Width 20.1 % Platelet Count 196 TH/MM3 Mean Platelet Volume 8.8 FL Neutrophils (%) (Auto) % Lymphocytes (%) (Auto) % Monocytes (%) (Auto) % Eosinophils (%) (Auto) % Basophils (%) (Auto) % Neutrophils # (Auto) TH/MM3 Lymphocytes # (Auto) TH/MM3 Monocytes # (Auto) TH/MM3 Eosinophils # (Auto) TH/MM3 Basophils # (Auto) TH/MM3 CBC Comment AUTO DIFF Differential Total Cells 100 Counted Neutrophils % (Manual) 10 % Lymphocytes % 85 % Monocytes % 5 % Neutrophils # (Manual) 0.2 TH/MM3 Nucleated Red Blood Cells 3 /100 WBC Differential Comment FINAL DIFF MANUAL Platelet Estimate NORMAL Platelet Morphology Comment NORMAL Keratocytes 1+ Sodium Level 142 MEQ/L Potassium Level 3.2 MEQ/L 3.2 MEQ/L Chloride Level 111 MEQ/L Carbon Dioxide Level 21.5 MEQ/L Anion Gap 10 MEQ/L Blood Urea Nitrogen 29 MG/DL Creatinine 1.10 MG/DL Estimat Glomerular Filtration 68 ML/MIN Rate Random Glucose 99 MG/DL Lactic Acid Level 1.2 mmol/L Calcium Level 7.2 MG/DL Protein Corrected Calcium 7.6 MG/DL Phosphorus Level 3.3 MG/DL Magnesium Level 2.4 MG/DL Total Bilirubin 1.5 MG/DL Aspartate Amino Transf 96 U/L (AST/SGOT) Alanine Aminotransferase 145 U/L (ALT/SGPT) Alkaline Phosphatase 101 U/L Troponin I 2.67 NG/ML Total Protein 6.4 GM/DL Albumin 3.4 GM/DL Triglycerides Level 104 MG/DL Cholesterol Level 80 MG/DL LDL Cholesterol 34 MG/DL HDL Cholesterol 25.7 MG/DL Cholesterol/HDL Ratio 3.11 RATIO Imaging Last Impressions Chest X-Ray 11/28/16 0745 Signed Impressions: Service Date/Time: Monday, November 28, 2016 07:49 - CONCLUSION: Cardiomegaly with moderate congestive failure. Maicol Mccloud MD FACR Lower Extremity Ultrasound 11/28/16 0000 Signed Impressions: Service Date/Time: Monday, November 28, 2016 13:27 - CONCLUSION: 1. Venous mapping as above Abiel Barrow MD Carotid Artery Ultrasound 11/28/16 0000 Signed Impressions: Service Date/Time: Monday, November 28, 2016 12:41 - CONCLUSION: Negative examination for a hemodynamically significant carotid stenosis. Maicol Mccloud MD Abdomen X-Ray 11/28/16 0000 Signed Impressions: Service Date/Time: Monday, November 28, 2016 17:43 - CONCLUSION: 1. Ileus, predominantly colonic. No free air identified. Shakir Meier MD Abdomen Ultrasound 11/28/16 0000 Signed Impressions: Service Date/Time: Monday, November 28, 2016 12:18 - CONCLUSION: Negative for intrahepatic ductal dilatation. Negative for hydronephrosis. Maicol Mccloud MD FACR Assessment and Plan Assessment and Plan CAD - LM + multivessel CAD. IABP. heparin gtt. CP free. CABG jordi. abd distension - + ileus. NGT. GI following. anemia - no bleeding. Hb up from 3 to 7.1 s/p transfusion x 5 PRBC. GI input appreciated. WBC low. suspect bone marrow issue. Hematology consulted. Alan Almonte MD Nov 29, 2016 09:02
[2016-11-29] MEDS: PANTOPRAZOLE SODIUM 40 MG VIAL IV SCH (09:24)
[2016-11-29] MEDS ORDERED: DIATRIZOATE MEGLUM/DIATRIZOATE SOD 9 ML CUP PO ONE (09:30)
[2016-11-29] MEDS: SODIUM CHLORIDE 0.9% FLUSH 5 ML FLUSH IV FLUSH SCH ×2 (09:44→21:42)
[2016-11-29] MEDS ORDERED: MINERAL OIL ENEMA 118 ML BTL RECTAL ONE (09:45)
[2016-11-29] MEDS ORDERED: METHYLNALTREXONE BROMIDE 12 MG/0.6 ML VIAL SQ ONE (09:45)
[2016-11-29] MEDS ORDERED: POTASSIUM CHLORIDE 10 MEQ CONTROLLED RELEASE TAB PO ONE (09:45)
[2016-11-29] MEDS ORDERED: SIMETHICONE 80 MG CHEWABLE TAB CHEW PRN (09:45)
--- NOTE | 2016-11-29 09:51 | HHI.CCPN ---
Subjective Remarks/Hospital Course 61 yo male.. DOA 11/28/16. PMH LBP, tobaccoism, colon polyps, R ing hernia repair x2, C -spine x2 and occ ETOH ([address]) presents to ED with ongoing "burning " CP present for several weeks exacerbated today. At rest. Received NTG some relief. EKG changes, STT - inf and lat leads. Takes ASA daily since bro from "his aorta" Hgb low ~ 3. Brown stools acc to pt. Hx colon polys - benign 2 years ago w/VACath lab Cath - EF 35%; 90% LMain, 30% prox LAD, 95% mid LAD, 80% Cx, 20% OM1, 100% RCA. IABP placed augmented ~110. Currently CP free on 5L NC Subjective 11/29: Afebrile. Continues on IABP at 1:1. Transfuse to total 4 PRBCs since admission. Last bowel movement on Monday?. Some abdominal distention and copious gas and bowel and x-ray. Enemas provided. Objective Vital Signs Date Time Temp Pulse Resp B/P Pulse Ox O2 Delivery O2 Flow Rate FiO2 11/29/16 08:00 94 Nasal Cannula 2.00 11/29/16 08:00 97.6 84 20 86/51 Intake and Output 11/28/16 11/28/16 11/29/16 08:00 16:00 00:00 Intake Total 1989 ml Output Total 2250 ml Balance -261 ml Result Diagram: 11/29/16 0415 11/29/16 0815 Imaging Last Impressions Chest X-Ray 11/28/16 0745 Signed Impressions: Service Date/Time: Monday, November 28, 2016 07:49 - CONCLUSION: Cardiomegaly with moderate congestive failure. Maicol Mccloud MD FACR Objective Remarks GENERAL: 61 yo M, Crit ill in bed w/ IABP NAD SKIN: PAle and dry. No rash HEAD: Atraumatic. Normocephalic. EYES: Pupils equal and round 3 m b/l and rx. No scleral icterus. No injection or drainage. ENT: No nasal bleeding or discharge. Mucous membranes pink and moist. NECK: Trachea midline. No JVD. CARDIOVASCULAR: Regular rate and rhythm. S1, S2. IABP augmentation RESPIRATORY: No accessory muscle use. Clear to auscultation. Breath sounds equal bilaterally. GASTROINTESTINAL: Abdomen slightly distended.. Normal bowel sounds without. + MUSCULOSKELETAL: Extremities without significant edema. No obvious deformities. IABP in R groin C/D/I NEUROLOGICAL: Awake and alert. No obvious cranial nerve deficits. Motor grossly within normal limits. Five out of 5 muscle strength in the arms and legs. Normal speech. PSYCHIATRIC: Appropriate mood and affect; insight and judgment normal. Urinary Catheter: Yes Assessment to: Continue House insert reason: Prolonged Immobilization Vascular Central Line Catheter: No Assessment to: Continue A/P Assessment and Plan Neuro/Psych: ETOH Acetominophen for pain [place]/MSO4 for pn management Thiamine, folic/MVI daily CV 3V CAD CG shock Elevated troponin Cath -EF 35%. Lmain 90%, prox LAD 30%, midLAD 95%, Cx 80%, OM1 20%, RCA 100% IABP 1:1 augmented ~ 110 CTS C/S evaluation for CABG ongoing Cholesterol actually 80. Echo revealed EF 30-35%. Mild AR, MR and TR. RENATE 41 mmHg. Pulm Resp insuff Tobacco NC sats > 92% [id number] Tob cessation encouraged CXR - B/L inf/effusions/CM GI Elevated transaminases Question early ileus NPO Protonix GI proph Colace/Senna BM regimen Received Relistor, enema for colonic ileus. Hemoccult stool GI c/s Hepatitis negative Pending AMA, ASMA, OLEG No ductal dilatation liver ultrasound House accurate I/O's in critical ill pt Heme Macro Anemia Neutrophilia Leukopenia Low plts Tx 5U PRBC total B12 and TSH normal. Folate actually slightly elevated. Peripheral smear revealed macrocytic anemia and absolute neutrophilia. Heme c/s Reticulocyte count normal at 1.7. Absolute check slightly low at 17.5. Note reticulocyte count this was drawn off yesterday's labs prior to blood transfusion. Check SPEP. Might need to check HIV as well. ID Monitor for infection Renal KHALIF Creatinine slowly normalizing Renal ultrasound revealed no hydronephrosis Recx BMP in AM MSK Bedrest with FEN: Hypokalemia 40 mEq by mouth 1 now. Recheck at 1500 Access PIV. CVL if indicated Proph GI- Protonix DVT - heparin Critical Care: The total critical care time was 35 minutes. Time to perform other separately billable procedures was not included in the critical care time. Shailesh Skelton MD Nov 29, 2016 09:51
[2016-11-29] MEDS ORDERED: INFLUENZA VIRUS VACCINE (QUADRIVALENT) 0.5 ML SYR IM ONE (10:00)
[2016-11-29] MEDS: NS + KCL 40 MEQ INJ 1,000 ML IV SCH ×2 (10:00→21:41)
[2016-11-29] MEDS: DOCUSATE SODIUM 100 MG CAP PO SCH ×2 (10:14→21:41)
[2016-11-29 10:16] LABS: RETIC % 1.7 % (0.4-3.0)
[2016-11-29 10:17] LABS: REVIEW FLAG FINAL
--- NOTE | 2016-11-29 11:01 | PD.CAR.PN ---
CVT Progress Note Subjective/Hospital Course: 61 yo male.. DOA 11/28/16. PMH LBP, tobaccoism, colon polyps, R ing hernia repair x2, C -spine x2 and occ ETOH ([place]) presents to ED with ongoing "burning " CP present for several weeks exacerbated today. At rest. Received NTG some relief. EKG changes, STT - inf and lat leads. Takes ASA daily since bro from "his aorta" Hgb low ~ 3. Brown stools acc to pt. Hx colon polys - benign 2 years ago w/VACath lab/ STEMI , HGB 3.7 / HCT 10.9 WBC 1.7 Cath - EF 35%; 90% LMain, 30% prox LAD, 95% mid LAD, 80% Cx, 20% OM1, 100% RCA. IABP placed augmented ~110. Currently CP free on 5L NC GI consulted , Hematology consulted 11/29 s/p 5 units PRBC infused Abd KUB noted , + ileus / large amount of stool for enemas today, CT abd and pelvis pending augmenting 1:1 augmentation pressure 107 on Heparin gtt, await eval by hematology to r/o malignancy, bone marrow suppression prior to scheduling of CABG Objective: GENERAL: SKIN: Warm and dry. HEAD: Normocephalic. EYES: No scleral icterus. No injection or drainage. NECK: Supple, trachea midline. No JVD or lymphadenopathy. CARDIOVASCULAR: Regular rate and rhythm without murmurs, gallops, or rubs. mild edema / IABP right groin, augmenting 1:1, + distal pulses RESPIRATORY: few crackles in bases Breath sounds equal bilaterally. No accessory muscle use. GASTROINTESTINAL: Abdomen soft, non-tender, nondistended. MUSCULOSKELETAL: No cyanosis, or edema. BACK: Nontender without obvious deformity. No CVA tenderness. Vital Signs Date Time Temp Pulse Resp B/P Pulse Ox O2 Delivery O2 Flow Rate FiO2 11/29/16 10:00 93/62 11/29/16 09:00 92/64 11/29/16 08:00 94 Nasal Cannula 2.00 11/29/16 08:00 97.6 84 20 86/51 94 11/29/16 08:00 84 11/29/16 08:00 86/57 11/29/16 07:36 94 Nasal Cannula 2.00 11/29/16 07:33 20 11/29/16 06:00 86/59 11/29/16 05:00 89/61 11/29/16 04:00 87/59 11/29/16 04:00 97.9 76 20 121/56 94 87/59 11/29/16 03:00 88/56 11/29/16 03:00 92 Nasal Cannula 2.00 11/29/16 03:00 75 11/29/16 03:00 98.2 75 16 88/56 92 11/29/16 02:00 86/60 11/29/16 01:00 87/56 11/29/16 00:00 84/55 11/29/16 00:00 99.4 80 18 106/66 94 84/56 11/28/16 23:00 93 Nasal Cannula 2.00 11/28/16 23:00 100.0 88 18 92/61 93 11/28/16 23:00 92/61 11/28/16 23:00 83 11/28/16 22:33 100.0 90 18 91/63 95 11/28/16 22:00 87/60 11/28/16 21:00 88/61 11/28/16 20:46 97 Nasal Cannula 2.00 11/28/16 20:00 99.8 92 18 122/68 98 11/28/16 20:00 100.0 92 18 122/68 98 89/61 11/28/16 20:00 89/61 11/28/16 19:00 88 11/28/16 19:00 88 11/28/16 19:00 91/54 11/28/16 19:00 99.8 92 18 91/54 97 11/28/16 19:00 97 Nasal Cannula 2.00 11/28/16 18:00 94/63 11/28/16 17:00 90/59 11/28/16 16:00 86/58 11/28/16 16:00 99.6 85 20 86/58 99 11/28/16 14:00 81/60 11/28/16 13:00 88/57 11/28/16 12:00 83/57 11/28/16 12:00 99.5 87 20 83/57 95 11/28/16 11:30 95 Nasal Cannula 4.00 11/28/16 11:00 86/59 Labs: Laboratory Tests Test 11/28/16 11/29/16 11/29/16 23:00 04:15 08:15 Activated Partial 29.2 SEC 32.0 SEC Thromboplast Time (24.3-30.1) (24.3-30.1) White Blood Count 2.4 TH/MM3 (4.0-11.0) Red Blood Count 2.17 MIL/MM3 (4.50-5.90) Hemoglobin 7.1 GM/DL (13.0-17.0) Hematocrit 20.4 % (39.0-51.0) Mean Corpuscular Volume 94.1 FL (80.0-100.0) Mean Corpuscular Hemoglobin 32.7 PG (27.0-34.0) Mean Corpuscular Hemoglobin 34.7 % Concent (32.0-36.0) Red Cell Distribution Width 20.1 % (11.6-17.2) Platelet Count 196 TH/MM3 (150-450) Mean Platelet Volume 8.8 FL (7.0-11.0) Neutrophils (%) (Auto) % (16.0-70.0) Lymphocytes (%) (Auto) % (9.0-44.0) Monocytes (%) (Auto) % (0.0-8.0) Eosinophils (%) (Auto) % (0.0-4.0) Basophils (%) (Auto) % (0.0-2.0) Neutrophils # (Auto) TH/MM3 (1.8-7.7) Lymphocytes # (Auto) TH/MM3 (1.0-4.8) Monocytes # (Auto) TH/MM3 (0-0.9) Eosinophils # (Auto) TH/MM3 (0-0.4) Basophils # (Auto) TH/MM3 (0-0.2) CBC Comment AUTO DIFF Differential Total Cells 100 Counted Neutrophils % (Manual) 10 % (16-70) Lymphocytes % 85 % (9-44) Monocytes % 5 % (0-8) Neutrophils # (Manual) 0.2 TH/MM3 (1.8-7.7) Nucleated Red Blood Cells 3 /100 WBC (0-0) Differential Comment FINAL DIFF MANUAL Platelet Estimate NORMAL (NORMAL) Platelet Morphology Comment NORMAL (NORMAL) Keratocytes 1+ (NORMAL) Sodium Level 142 MEQ/L (136-145) Potassium Level 3.2 MEQ/L 3.2 MEQ/L (3.5-5.1) (3.5-5.1) Chloride Level 111 MEQ/L (98-107) Carbon Dioxide Level 21.5 MEQ/L (21.0-32.0) Anion Gap 10 MEQ/L (5-15) Blood Urea Nitrogen 29 MG/DL (7-18) Creatinine 1.10 MG/DL (0.60-1.30) Estimat Glomerular Filtration 68 ML/MIN (>89) Rate Random Glucose 99 MG/DL (74-106) Lactic Acid Level 1.2 mmol/L (0.4-2.0) Calcium Level 7.2 MG/DL (8.5-10.1) Protein Corrected Calcium 7.6 MG/DL (8.5-10.1) Phosphorus Level 3.3 MG/DL (2.5-4.9) Magnesium Level 2.4 MG/DL (1.5-2.5) Total Bilirubin 1.5 MG/DL (0.2-1.0) Aspartate Amino Transf 96 U/L (15-37) (AST/SGOT) Alanine Aminotransferase 145 U/L (12-78) (ALT/SGPT) Alkaline Phosphatase 101 U/L (45-117) Troponin I 2.67 NG/ML (0.02-0.05) Total Protein 6.4 GM/DL (6.4-8.2) Albumin 3.4 GM/DL (3.4-5.0) Triglycerides Level 104 MG/DL (42-150) Cholesterol Level 80 MG/DL (120-200) LDL Cholesterol 34 MG/DL (0-99) HDL Cholesterol 25.7 MG/DL (40.0-60.0) Cholesterol/HDL Ratio 3.11 RATIO Result Diagram: 11/29/16 0415 11/29/16 0815 Telemetry: NSR (1) Chest pain (2) Abnormal EKG (3) STEMI (ST elevation myocardial infarction) Plan: heparin gtt, IABP 1:1 (4) Profound anemia Plan: s/p 5 units PRBC hematolgy consult pending GI following, (5) Leukopenia Plan: further workup pending (6) Ileus Plan: constipation, abd pain for enemas , relistor for ct abd/ pelvis today Problem Qualifiers (1) Chest pain: Qualified Code: R07.9 - Chest pain, unspecified type Marianela Jimenez Nov 29, 2016 11:01
--- NOTE | 2016-11-29 11:55 | RADRPT ---
EXAM DATE/TIME: 11/29/2016 10:56 [facility] COMPARISON: CHEST SINGLE AP, November 28, 2016, 7:49. INDICATIONS : IABP placement. Shortness of breath. MEDICAL HISTORY : Chronic obstructive pulmonary disease. Arthritis. Congestive heart failure. Smoker. SURGICAL HISTORY : IABP placement. ENCOUNTER: Subsequent ACUITY: 2 days PAIN SCORE: 0/10 LOCATION: Bilateral chest FINDINGS: A single view of the chest demonstrates increased interstitial markings bilaterally suggestive of iliana e pulmonary edema. This is mildly improved compared to the prior exam. The heart size is stable. No s ignificant pleural effusions are seen.. CONCLUSION: Mild improving pulmonary edema. Pedrito Gregg MD on November 29, 2016 at 11:53 Board Certified Radiologist. This report was verified electronically.
[2016-11-29 12:02] LABS: POTASSIUM 3.2 MEQ/L (3.5-5.1); TOTAL PROTEIN SPE 6.5 GM/DL (6.0-7.6)
--- NOTE | 2016-11-29 12:05 | RADRPT ---
EXAM DATE/TIME: 11/29/2016 10:38 [facility] COMPARISON: ABDOMEN KUB ONLY, November 28, 2016, 17:43. INDICATIONS : Abdominal pain, constipation. MEDICAL HISTORY : Chronic obstructive pulmonary disease. Arthritis. Congestive heart failure. Smoker. SURGICAL HISTORY : Inguinal hernia repair. ENCOUNTER: Subsequent ACUITY: 2 days PAIN SCORE: 10/10 LOCATION: Bilateral upper and lower quadrants. FINDINGS: Supine view of the abdomen was performed. The abdominal bowel gas pattern is stable compared to the prior exam. There continues to be some air-filled loops of small and predominantly large colon. The o verall pattern is about the same. No free air is seen. The lung bases remain clear. CONCLUSION: No significant change in the overall bowel gas pattern compared to the prior study. Pedrito Gregg MD on November 29, 2016 at 12:02 Board Certified Radiologist. This report was verified electronically.
--- NOTE | 2016-11-29 13:49 | EKG ---
Date Performed: 11/29/2016 Time Performed: 03:24:40 PTAGE: 61 years EKG: Sinus rhythm LVH with secondary repolarization abnormality Extensive ST-T changes may be due to hypertrophy and/o r ischemia Abnormal ECG Compared to prior tracing no significant change PREVIOUS TRACING : 11/28/2016 07.47 DOCTOR: Estefany Kennedy Interpretating Date/Time 11/29/2016 13:46:59
[2016-11-29] MEDS ORDERED: LORazepam 2 MG/ML VIAL IV PRN (15:30)
--- NOTE | 2016-11-29 16:59 | HHI.GIFU ---
Subjective Remarks Resting in bed. Continues to have abdominal discomfort, dull ache, more in lower abdomen. Nurse reports that he was very bloated this am and he received fleets enema, simethicone, and relistor. Small bm, passed some flatus. Not currently distended, although continues to have pain. (Carole Garcia) Objective Vitals I&O Vital Signs Date Time Temp Pulse Resp B/P Pulse Ox O2 Delivery O2 Flow Rate FiO2 11/29/16 16:00 97/59 11/29/16 15:12 95 Nasal Cannula 2.00 11/29/16 15:12 99.9 82 20 94/58 95 11/29/16 15:00 82 11/29/16 15:00 94/58 11/29/16 14:00 96/60 11/29/16 13:00 95/64 11/29/16 12:00 90/61 11/29/16 11:00 76 11/29/16 11:00 97.5 76 20 90/60 95 11/29/16 11:00 95 Nasal Cannula 2.00 11/29/16 11:00 90/60 11/29/16 10:00 93/62 11/29/16 09:00 92/64 11/29/16 08:00 94 Nasal Cannula 2.00 11/29/16 08:00 97.6 84 20 86/51 94 11/29/16 08:00 84 11/29/16 08:00 86/57 11/29/16 07:36 94 Nasal Cannula 2.00 11/29/16 07:33 20 11/29/16 06:00 86/59 11/29/16 05:00 89/61 11/29/16 04:00 87/59 11/29/16 04:00 97.9 76 20 121/56 94 87/59 11/29/16 03:00 88/56 11/29/16 03:00 92 Nasal Cannula 2.00 11/29/16 03:00 75 11/29/16 03:00 98.2 75 16 88/56 92 11/29/16 02:00 86/60 11/29/16 01:00 87/56 11/29/16 00:00 84/55 11/29/16 00:00 99.4 80 18 106/66 94 84/56 11/28/16 23:00 93 Nasal Cannula 2.00 11/28/16 23:00 100.0 88 18 92/61 93 11/28/16 23:00 92/61 11/28/16 23:00 83 11/28/16 22:33 100.0 90 18 91/63 95 11/28/16 22:00 87/60 11/28/16 21:00 88/61 11/28/16 20:46 97 Nasal Cannula 2.00 11/28/16 20:00 99.8 92 18 122/68 98 11/28/16 20:00 100.0 92 18 122/68 98 89/61 11/28/16 20:00 89/61 11/28/16 19:00 88 11/28/16 19:00 88 11/28/16 19:00 91/54 11/28/16 19:00 99.8 92 18 91/54 97 11/28/16 19:00 97 Nasal Cannula 2.00 11/28/16 18:00 94/63 11/28/16 17:00 90/59 I/O 11/28/16 11/28/16 11/28/16 11/29/16 11/29/16 11/29/16 07:00 15:00 23:00 07:00 15:00 23:00 Intake Total 1989 ml 2964 ml Output Total 2250 ml 1050 ml Balance -261 ml 1914 ml Intake Oral 1000 ml 1200 ml IV Total 239 ml 1017 ml Packed Cells 750 ml 747 ml Output Urine Total 2250 ml 1050 ml # Bowel Movements 0 0 Laboratory Laboratory Tests Test 11/28/16 11/28/16 11/29/16 11/29/16 17:36 23:00 04:15 08:15 White Blood Count 2.3 2.4 Red Blood Count 1.63 2.17 Hemoglobin 5.5 7.1 Hematocrit 16.2 20.4 Mean Corpuscular Volume 99.1 94.1 Mean Corpuscular Hemoglobin 33.6 32.7 Mean Corpuscular Hemoglobin 33.9 34.7 Concent Red Cell Distribution Width 24.8 20.1 Platelet Count 247 196 Mean Platelet Volume 8.5 8.8 Activated Partial 26.4 29.2 32.0 Thromboplast Time Neutrophils (%) (Auto) Lymphocytes (%) (Auto) Monocytes (%) (Auto) Eosinophils (%) (Auto) Basophils (%) (Auto) Neutrophils # (Auto) Lymphocytes # (Auto) Monocytes # (Auto) Eosinophils # (Auto) Basophils # (Auto) CBC Comment AUTO DIFF Differential Total Cells 100 Counted Neutrophils % (Manual) 10 Lymphocytes % 85 Monocytes % 5 Neutrophils # (Manual) 0.2 Nucleated Red Blood Cells 3 Differential Comment FINAL DIFF MANUAL Platelet Estimate NORMAL Platelet Morphology Comment NORMAL Keratocytes 1+ Sodium Level 142 Potassium Level 3.2 3.2 Chloride Level 111 Carbon Dioxide Level 21.5 Anion Gap 10 Blood Urea Nitrogen 29 Creatinine 1.10 Estimat Glomerular Filtration 68 Rate Random Glucose 99 Lactic Acid Level 1.2 Calcium Level 7.2 Protein Corrected Calcium 7.6 Phosphorus Level 3.3 Magnesium Level 2.4 Total Bilirubin 1.5 Aspartate Amino Transf 96 (AST/SGOT) Alanine Aminotransferase 145 (ALT/SGPT) Alkaline Phosphatase 101 Troponin I 2.67 Total Protein 6.4 Albumin 3.4 Triglycerides Level 104 Cholesterol Level 80 LDL Cholesterol 34 HDL Cholesterol 25.7 Cholesterol/HDL Ratio 3.11 Test 11/29/16 10:58 Potassium Level 3.2 Phosphorus Level 2.7 Total Protein 6.5 Imaging Last Impressions Chest X-Ray 11/29/16 0000 Signed Impressions: Service Date/Time: Tuesday, November 29, 2016 10:56 - CONCLUSION: Mild improving pulmonary edema. Pedrito Gregg MD Abdomen X-Ray 11/29/16 0000 Signed Impressions: Service Date/Time: Tuesday, November 29, 2016 10:38 - CONCLUSION: No significant change in the overall bowel gas pattern compared to the prior study. Pedrito Gregg MD Lower Extremity Ultrasound 11/28/16 0000 Signed Impressions: Service Date/Time: Monday, November 28, 2016 13:27 - CONCLUSION: 1. Venous mapping as above Abiel Barrow MD Carotid Artery Ultrasound 11/28/16 0000 Signed Impressions: Service Date/Time: Monday, November 28, 2016 12:41 - CONCLUSION: Negative examination for a hemodynamically significant carotid stenosis. Maicol Mccloud MD Abdomen Ultrasound 11/28/16 0000 Signed Impressions: Service Date/Time: Monday, November 28, 2016 12:18 - CONCLUSION: Negative for intrahepatic ductal dilatation. Negative for hydronephrosis. Maicol Mccloud MD FACR Physical Exam HEENT: Normocephalic; atraumatic; no jaundice. CHEST: CTA CARDIAC: ST, hypotensive. IABP ABDOMEN: Soft, nondistended, mild mid/lower abdominal tenderness no hepatosplenomegaly; bowel sounds are present in all four quadrants. EXTREMITIES: No clubbing, cyanosis, or edema. SKIN: Generalized pallor. SKID ROAD MAN: Lethargic and oriented times three. (Carole Garcia) Assessment and Plan Plan ASSESSMENT: - Severe anemia, macrocytic. On admission, HH 3.7/10.9, MCV 108.2, MCHC 33.9. B12 510, Folate 17.9. Pt has been having some bloating, belching, lower abdominal pain, but denies any obvious GI bleeding such as hematemesis , melena, or hematochezia. PPI. On heparin . S/P 5 units of PRBC HH 7.1/20.4 today. No obvious GI bleeding. Needs GI workup for anemia when more stable. - Abdominal pain. Lower abdominal/suprapubic pain (pressure radiating to chest/ shoulders). Nurse reports that he was distended and had abdominal pain this am. S/P Fleets enema, Relistor, Simethicone. He had small bowel movement and passed flatus, but continues to have mid to moderate mid/lower abdominal tenderness. CT scan abdomen and pelvis has been ordered by primary and he is going down at 5pm. KUB this am with some air filled loops of small and predominantly large bowel, overall pattern about the same, no free air. - Elevated LFTs. Pt with elevated transaminases, neutropenia, anemia, coagulopathy, hypoalbuminemia on admission. US (11/28/16)----> negative for intrahepatic ductal dilatation, negative for hydronephrosis. Denies any ETOH abuse or known hx of liver cirrhosis/dz, although his labs would are suspicious for etoh or underlying liver dz- MCV 108.2 with B12 510, Folate 17.9. Hepatitis panel negative. OLEG, AMA, ASMA pending. Monitor LFTs. - TN, Cardiogenic shock, Severe multivessel disease. S/P Cardiac Cath (11/28/16)- ---> Severe left main, multivessel disease. IABP. CVT consulted for surgery. - KHALIF. Creat. 1.10 - COPD. Per primary. PLAN: - Possible EGD in am - Await CT Scan abdomen and pelvis - Cont. PPI - Monitor HH - Transfuse as necessary - CBC, CMP in am - Await OLEG, ASMA, AMA - Pt is in cardiogenic shock with IABP and is unstable for endoscopic evaluation at this time unless there is obvious active GI bleeding - Supportive care - Further recommendations to follow based on results of above - PT seen and examined by Dr. Murguia and myself and this note is written on his behalf (Carole Garcia) Physician Comments Patient seen and examined Agree with above Into any with current supportive care Monitor labs No obvious GI bleed at this point We will proceed with an EGD to further evaluate for cause of anemia prior to cardiovascular surgery Case was discussed yesterday with cardiovascular surgery (Arnaldo Murguia MD) Carole Garcia Nov 29, 2016 16:59 Arnaldo Murguia MD Nov 29, 2016 21:34
[2016-11-29] MEDS ORDERED: ATROPINE SULFATE 1 MG/10 ML SYRINGE ONE (17:11)
[2016-11-29] MEDS ORDERED: EPINEPHrine HCL (1:10,000) 1 MG/10 ML SYRINGE ONE ×2 (17:12→22:23)
[2016-11-29 17:58] LABS: HEMATOCRIT 22.2 % (39.0-51.0); REVIEW FLAG FINAL
--- NOTE | 2016-11-29 18:08 | RADRPT ---
EXAM DATE/TIME: 11/29/2016 17:22 [facility] COMPARISON: No previous studies available for comparison. INDICATIONS: Abdominal pain. Anemia. ORAL CONTRAST: No oral contrast ingested. RADIATION DOSE: 15.39 CTDIvol (mGy) MEDICAL HISTORY: Cardiovascular disease. SURGICAL HISTORY: Hernia ENCOUNTER: Initial ACUITY: 1 day PAIN SCALE: 8/10 LOCATION: Bilateral abdomen TECHNIQUE: Volumetric scanning of the abdomen and pelvis was performed. Using automated exposure control and ad justment of the mA and/or kV according to patient size, radiation dose was kept as low as reasonably achievable to obtain optimal diagnostic quality images. FINDINGS: Non-contrast CT of the abdomen and pelvis was performed. There is some type of metallic artifact ove rlying the descending aorta I suspect it could be related to artifact. There are small bilateral ple ural effusions. There is some passive atelectasis right lung base. There is contrast from the gallb ladder. The unenhanced liver, spleen, adrenal glands, pancreas are unremarkable. The kidneys are un remarkable. There is no bowel wall thickening. House catheter is in the bladder. CONCLUSION: No evidence of retroperitoneal hemorrhage or etiology for anemia is identified. There is air lucency within the descending aorta I suspect is artifactual but I cannot confirm any definite metal. Bowel gas pattern is unremarkable. Diverticulosis without evidence of diverticulitis. Alan Gabriel MD on November 29, 2016 at 17:33 Board Certified Radiologist. This report was verified electronically.
[2016-11-29 18:10] LABS: APTT (PATIENT) 30.1 SEC (24.3-30.1)
--- NOTE | 2016-11-29 20:41 | MB ---
cc: GABRIELLE MADRIGAL DATE OF CONSULTATION: 11/29/2016 REASON FOR CONSULTATION: Severe anemia, neutropenia. HISTORY OF PRESENT ILLNESS This is a 61-year-old male who was brought to the emergency department with acute chest pain. In the emergency department a STEMI alert was called and the patient underwent cardiac catheterization and placement of intra-aortic balloon pump. He has multivessel disease. His ejection fraction is 35%. He has been severely anemic with a hemoglobin of 3.7 and he has been given 4 units of packed red blood cells. Additionally he is also leukopenic with a white blood cell count of 2.4 with but the neutrophil percentage is quite low at 25%. His MCV was elevated to 108.2. Additional lab workup does not show any underlying folate or B12 deficiency. He is currently undergoing GI workup to assess for a source of anemia. His hepatitis panel including Hep B and C is negative. The patient is acutely ill and hemodynamically unstable. I have been consulted to evaluate his anemia and leukopenia. He has a history of tobacco abuse and COPD. The patient states that he was found to have abnormal CBC in July of 2016 and in September 2016, he was referred to an oncologist but never saw one. He says that prior to that he does not have any history of anemia or leukopenia. REVIEW OF SYSTEMS A comprehensive 14-point review of systems was completed which is negative except as described in the HPI. PAST MEDICAL HISTORY 1. History of COPD 2. Tobacco abuse 3. Colon polyps 4. Degenerative joint disease 5. Chronic pain. PAST SURGICAL HISTORY Hernia repairs x2 Neck surgery Colonoscopy, polypectomy. MEDICATIONS Inpatient medications were reviewed. 1. Lorazepam. 2. Pantoprazole. 3. Docusate. 4. Tylenol. 5. Morphine sulfate. 6. [place] 7. Senna. 8. DuoNebs 9. Cephazolin. 10. Sliding scale insulin 11. Reglan. ALLERGIES NO KNOWN DRUG ALLERGIES. FAMILY HISTORY Reviewed. His father of lung cancer. Mother had coronary artery disease. SOCIAL HISTORY He is a smoker but states that he has cut back on his smoking and smokes five cigarettes per day. He occasionally drinks alcohol. No illicit drug use. PHYSICAL EXAMINATION Vital signs: Blood pressure is 97/64, pulse is in the 80s, pulse ox is 95% on nasal cannula. General: Acutely ill patient in no apparent distress at this time. HEENT: Pupils are equal, round, reactive to light. EOMI. No oral thrush. No oral lesions. Chest: Chest is clear to auscultation bilaterally. Cardiac: S1-S2, tachycardiac. Abdomen: Soft, nontender, nondistended. Bowel sounds are present. Extremities: Without any edema, erythema or cyanosis. Skin: Without any petechiae, bruises or lesions. Neuro: No focal deficits. Psychiatric: Mood and affect is appropriate. Lymph node exam, no apparent lymphadenopathy on exam. IMAGING STUDIES Abdominal ultrasound was reviewed. CT of the abdomen and pelvis is pending. Abdominal x-ray showed ileus, predominantly colonic. No free air. Doppler ultrasound of the lower extremities did not show any evidence of DVT. ASSESSMENT AND PLAN: This is a 61 year-old male with a history of tobacco abuse, COPD, and degenerative joint disease who was brought to the hospital with acute chest pain and was found to have acute [place]. He has undergone cardiac catheterization and he has multivessel disease. His ejection fraction is low. He was found to be severely anemic and leukopenic. 1. Severe anemia and leukopenia. He does not appear to be B12 or folate deficient. GI workup is undergoing. He has anemia with macrocytosis in the absence of B12 or folate deficiency. He also has significant neutropenia. There is a strong possibility of underlying bone marrow process such as MDS, leukemia, lymphoma or a myeloproliferative disorder. He does have elevated liver function tests and his coags show an elevated PT. There is a possibility of underlying liver disease. There does not appear to be underlying hemolysis. I will check LDH, haptoglobin and direct Sam test. His hepatitis panel is negative. We should check HIV status. This patient will require a bone marrow biopsy once he is hemodynamically stable. At this time we will continue supportive care. We will transfuse to keep his hemoglobin above 8, since he is acutely decompensated, had an acute NY, and hemodynamically unstable. With respect to his leukopenia, his ANC is still above 500. I would not initiate G-CSF treatment at this time. I will obtain a serum protein electrophoresis and quantitative immunoglobulins. Further recommendations will be made based on the findings of the above lab workup and patient's clinical status. GI is planning for an upper endoscopy and autoimmune hepatitis workup is pending. 2. Cardiogenic shock with intra-aortic balloon pump/recent NY with multivessel coronary artery disease and significantly reduced ejection fraction. Thank you for allowing me to participate in the care of this patient. I will continue to follow this patient along. MD DUSTIN Ba/MYAH /7:19 PM /8:18 PM DIAN
[2016-11-29 21:43] LABS: ALBUMIN SPE 3.82 GM/DL (3.50-5.00)
[2016-11-29 21:44] LABS: ALPHA 1 GLOBULIN 0.23 GM/DL (0.11-0.29); ALPHA 2 GLOBULIN 0.66 GM/DL (0.22-1.00); BETA GLOBULINS (SPE) 0.64 GM/DL (0.53-1.03)
[2016-11-29 21:55] LABS: TOTAL BILIRUBIN ADULT 1.3 MG/DL (0.2-1.0); TOTAL PROTEIN SPE 6.5 GM/DL (6.0-7.6)
[2016-11-30] VITALS (12 sets, daily range): BP systolic 94–127; BP diastolic 58–69; PULSE 73–86; RESP 16–20; TEMP 96.6–99.2; O2SAT 93–96
[2016-11-30] MEDS: CHLORHEXIDINE GLUCONATE 2 % 1 PACK (2 CLOTHS) TOP SCH (04:00)
[2016-11-30] MEDS: ACETAMINOPHEN/HYDROcodone 325 MG/5 MG TAB PO PRN ×2 (05:40→23:21)
[2016-11-30 06:23] LABS: HEMATOCRIT 22.3 % (39.0-51.0); MEAN CELL VOLUME 94.9 FL (80.0-100.0); MEAN CORPUSCULAR HEMOGLOBIN 32.2 PG (27.0-34.0); MEAN CORPUSCULAR HGB CONC 33.9 % (32.0-36.0); PLATELET COUNT 168 TH/MM3 (150-450); RED BLOOD COUNT 2.35 MIL/MM3 (4.50-5.90); RED CELL DISTRIBUTION WIDTH 19.6 % (11.6-17.2); WHITE BLOOD COUNT 3.1 TH/MM3 (4.0-11.0)
[2016-11-30 06:24] LABS: HEMO FLAGS AUTO DIFF
[2016-11-30 06:33] LABS: APTT (PATIENT) 38.7 SEC (24.3-30.1)
[2016-11-30 06:47] LABS: ALKALINE PHOSPHATASE 98 U/L (45-117); ALT (GPT) 128 U/L (12-78); ANION GAP 9 MEQ/L (5-15); AST (GOT) 52 U/L (15-37); BICARBONATE 19.6 MEQ/L (21.0-32.0); BLOOD UREA NITROGEN 21 MG/DL (7-18); CHLORIDE 113 MEQ/L (98-107); GLOMERULAR FILTRATION RATE 87 ML/MIN (>89); MAGNESIUM 2.6 MG/DL (1.5-2.5); POTASSIUM 3.8 MEQ/L (3.5-5.1); SODIUM (NA) 142 MEQ/L (136-145)
[2016-11-30 08:34] LABS: BANDS 4 % (0-6); BASOPHILS 2 % (0-2); METAMYELOCYTES 1 % (0-1); NEUTROPHIL # MANUAL DIFF 0.7 TH/MM3 (1.8-7.7); POLYS (SEG NEUTROPHILS) 16 % (16-70); PROMYELOCYTES 1 % (0-0); WBC DIFF SAMPLE 100
[2016-11-30 08:35] LABS: PLATELET ESTIMATE SMEAR NORMAL (NORMAL); PLATELET MORPHOLOGY NORMAL (NORMAL)
[2016-11-30 08:37] LABS: KERATOCYTES OCC (NORMAL); SCAN/DIFF FINAL DIFF MANUAL
[2016-11-30] MEDS: NS + KCL 40 MEQ INJ 1,000 ML IV SCH ×2 (08:46→20:34)
[2016-11-30] MEDS: DOCUSATE SODIUM 100 MG CAP PO SCH ×2 (08:53→20:35)
[2016-11-30] MEDS: PANTOPRAZOLE SODIUM 40 MG VIAL IV SCH (08:53)
[2016-11-30] MEDS: SODIUM CHLORIDE 0.9% FLUSH 5 ML FLUSH IV FLUSH SCH ×2 (08:54→20:34)
[2016-11-30] MEDS ORDERED: LACTULOSE SYRUP 20 GM/30 ML CUP PO ONE (09:15)
[2016-11-30] MEDS ORDERED: GLYCERIN ADULT 2 GM SUPP RECTAL PRN (09:15)
--- NOTE | 2016-11-30 09:22 | HHI.CCPN ---
Subjective Remarks/Hospital Course 61 yo male.. DOA 11/28/16. PMH LBP, tobaccoism, colon polyps, R ing hernia repair x2, C -spine x2 and occ ETOH ([place]) presents to ED with ongoing "burning " CP present for several weeks exacerbated today. At rest. Received NTG some relief. EKG changes, STT - inf and lat leads. Takes ASA daily since bro from "his aorta" Hgb low ~ 3. Brown stools acc to pt. Hx colon polys - benign 2 years ago w/VACath lab Cath - EF 35%; 90% LMain, 30% prox LAD, 95% mid LAD, 80% Cx, 20% OM1, 100% RCA. IABP placed augmented ~110. Currently CP free on 5L NC 11/29: Afebrile. Continues on IABP at 1:1. Transfuse to total 4 PRBCs since admission. Last bowel movement on Monday?. Some abdominal distention and copious gas and bowel and x-ray. Enemas provided. Subjective 11/30: Afebrile. Resting in bed. Passing flatulence. Small smear for bowel movement. Complaining of abdominal distention. Objective Vital Signs Date Time Temp Pulse Resp B/P Pulse Ox O2 Delivery O2 Flow Rate FiO2 11/30/16 08:00 97.4 73 18 127/63 95 96/64 11/30/16 07:57 Nasal Cannula 4.00 11/29/16 22:21 21 Intake and Output 11/29/16 11/29/16 11/29/16 07:59 15:59 23:59 Intake Total 2964 ml 1306 ml Output Total 1050 ml 725 ml Balance 1914 ml 581 ml Result Diagram: 11/30/16 0550 11/30/16 0550 Imaging Last Impressions Chest X-Ray 11/29/16 0000 Signed Impressions: Service Date/Time: Tuesday, November 29, 2016 10:56 - CONCLUSION: Mild improving pulmonary edema. Pedrito Gregg MD Abdomen/Pelvis CT 11/29/16 0000 Signed Impressions: Service Date/Time: Tuesday, November 29, 2016 17:22 - CONCLUSION: No evidence of retroperitoneal hemorrhage or etiology for anemia is identified. There is air lucency within the descending aorta I suspect is artifactual but I cannot confirm any definite metal. Bowel gas pattern is unremarkable. Diverticulosis without evidence of diverticulitis. Alan Gabriel MD Abdomen X-Ray 11/29/16 0000 Signed Impressions: Service Date/Time: Tuesday, November 29, 2016 10:38 - CONCLUSION: No significant change in the overall bowel gas pattern compared to the prior study. Pedrito Gregg MD Lower Extremity Ultrasound 11/28/16 Signed Impressions: Service Date/Time: Monday, November 28, 2016 13:27 - CONCLUSION: 1. Venous mapping as above Abiel Barrow MD Carotid Artery Ultrasound 11/28/16 Signed Impressions: Service Date/Time: Monday, November 28, 2016 12:41 - CONCLUSION: Negative examination for a hemodynamically significant carotid stenosis. Maicol Mccloud MD Abdomen Ultrasound 11/28/16 Signed Impressions: Service Date/Time: Monday, November 28, 2016 12:18 - CONCLUSION: Negative for intrahepatic ductal dilatation. Negative for hydronephrosis. Maicol Mccloud MD FACR Objective Remarks GENERAL: 61 yo M, Crit ill in bed w/ IABP NAD SKIN: PAle and dry. No rash HEAD: Atraumatic. Normocephalic. EYES: Pupils equal and round 3 m b/l and rx. No scleral icterus. No injection or drainage. ENT: No nasal bleeding or discharge. Mucous membranes pink and moist. NECK: Trachea midline. No JVD. CARDIOVASCULAR: Regular rate and rhythm. S1, S2. IABP augmentation RESPIRATORY: No accessory muscle use. Clear to auscultation. Breath sounds equal bilaterally. GASTROINTESTINAL: Abdomen slightly distended.. Normal bowel sounds without. + MUSCULOSKELETAL: Extremities without significant edema. No obvious deformities. IABP in R groin C/D/I NEUROLOGICAL: Awake and alert. No obvious cranial nerve deficits. Motor grossly within normal limits. Five out of 5 muscle strength in the arms and legs. Normal speech. PSYCHIATRIC: Appropriate mood and affect; insight and judgment normal. A/P Assessment and Plan Neuro/Psych: ETOH Acetominophen for pain [place]/MSO4 for pn management Thiamine, folic/MVI daily CV 3V CAD CG shock Elevated troponin Cath -EF 35%. Lmain 90%, prox LAD 30%, midLAD 95%, Cx 80%, OM1 20%, RCA 100% IABP 1:1 augmented ~ 110 CTS C/S evaluation for CABG ongoing Cholesterol actually 80. Echo revealed EF 30-35%. Mild AR, MR and TR. RENATE 41 mmHg. Pulm Resp insuff Tobacco NC sats > 92% [id number] Tob cessation encouraged CXR - B/L inf/effusions/CM CT and pelvis revealed small bilateral pleural effusion/right lower lobe atelectasis GI Elevated transaminases Question early ileus Constipation NPO Protonix GI proph Colace/Senna/MiraLAX/lactulose BM regimen Received Relistor, enema for colonic ileus. Hemoccult stool GI c/s preplan for upper endoscopy today Hepatitis negative Pending AMA, ASMA, OLEG No ductal dilatation liver ultrasound CT abdomen/pelvis revealed nonspecific bowel gas pattern. House accurate I/O's in critical ill pt Heme Macro Anemia Neutrophilia Leukopenia Low plts Tx 5U PRBC total B12 and TSH normal. Folate actually slightly elevated. Peripheral smear revealed macrocytic anemia and absolute neutrophilia. Heme c/s Reticulocyte count normal at 1.7. Absolute check slightly low at 17.5. Note reticulocyte count this was drawn off yesterday's labs prior to blood transfusion. Check SPEP is HIV pending. Normal IgA/G/M Haptoglobin slightly elevated 207. LDH elevated Evaluated By hematology. Workup in process ID Monitor for infection Renal KHALIF Creatinine slowly normalizing Renal ultrasound revealed no hydronephrosis Recx BMP in AM Currently on NS with KCl 100 cc an hour MSK Bedrest with balloon pump FEN: Replace electrolytes as clinically indicated Access PIV. CVL if indicated Proph GI- Protonix DVT - heparin Critical Care: The total critical care time was 35 minutes. Time to perform other separately billable procedures was not included in the critical care time. Shailesh Skelton MD Nov 30, 2016 09:22
[2016-11-30] MEDS: SENNOSIDES 8.6 MG TAB PO SCH ×2 (09:39→22:45)
[2016-11-30] MEDS: POLYETHYLENE GLYCOL 17 GM PKG PO SCH (10:06)
[2016-11-30] MEDS ORDERED: POTASSIUM PHOSPHATE INJ 15 MMOL in SODIUM CHLORIDE 0.9% INJ 150 ML IV ONE (11:00)
--- NOTE | 2016-11-30 11:10 | PD.CAR.PN ---
CVT Progress Note Subjective/Hospital Course: 61 yo male.. DOA 11/28/16. PMH LBP, tobaccoism, colon polyps, R ing hernia repair x2, C -spine x2 and occ ETOH ([place]) presents to ED with ongoing "burning " CP present for several weeks exacerbated today. At rest. Received NTG some relief. EKG changes, STT - inf and lat leads. Takes ASA daily since bro from "his aorta" Hgb low ~ 3. Brown stools acc to pt. Hx colon polys - benign 2 years ago w/VACath lab/ STEMI , HGB 3.7 / HCT 10.9 WBC 1.7 Cath - EF 35%; 90% LMain, 30% prox LAD, 95% mid LAD, 80% Cx, 20% OM1, 100% RCA. IABP placed augmented ~110. Currently CP free on 5L NC GI consulted , Hematology consulted 11/29 s/p 5 units PRBC infused Abd KUB noted , + ileus / large amount of stool for enemas today, CT abd and pelvis pending augmenting 1:1 augmentation pressure 107 on Heparin gtt, await eval by hematology to r/o malignancy, bone marrow suppression prior to scheduling of CABG 11/30 appreciate hematology input, MDS vs leukemia workup still pending ? timing for bone marrow bx still has IABP 1:1 augmenting 104 + distal pulses abdomen less distended/ small BM after enemas yesterday for upper GI today will need clearance from Hematology for surgery Objective: GENERAL: SKIN: Warm and dry. HEAD: Normocephalic. EYES: No scleral icterus. No injection or drainage. NECK: Supple, trachea midline. No JVD or lymphadenopathy. CARDIOVASCULAR: Regular rate and rhythm without murmurs, gallops, or rubs. IABP right groin, no hematoma , + distal pulses RESPIRATORY: diminished in bases Breath sounds equal bilaterally. No accessory muscle use. GASTROINTESTINAL: Abdomen soft, non-tender, nondistended. MUSCULOSKELETAL: No cyanosis, or edema. BACK: Nontender without obvious deformity. No CVA tenderness. Vital Signs Date Time Temp Pulse Resp B/P Pulse Ox O2 Delivery O2 Flow Rate FiO2 11/30/16 10:00 99/66 11/30/16 09:13 93 Nasal Cannula 4.00 11/30/16 09:00 105/64 11/30/16 08:00 97.4 73 18 127/63 95 96/64 11/30/16 08:00 96/64 11/30/16 07:57 95 Nasal Cannula 4.00 11/30/16 07:00 74 11/30/16 07:00 94/62 11/30/16 07:00 20 11/30/16 06:00 95/64 11/30/16 05:00 95/65 11/30/16 04:00 91/67 11/30/16 03:00 95 Nasal Cannula 4.00 11/30/16 03:00 86 11/30/16 03:00 97.3 76 18 118/69 95 94/64 11/30/16 03:00 94/64 11/30/16 02:00 97/65 11/30/16 01:00 95/56 11/30/16 00:00 91/60 11/29/16 23:00 81 11/29/16 23:00 99/61 11/29/16 23:00 95 Nasal Cannula 4.00 11/29/16 23:00 97.7 82 20 99/61 95 11/29/16 22:21 95 21 11/29/16 22:00 104/66 11/29/16 21:00 93/61 11/29/16 20:00 99/64 11/29/16 19:00 99.9 84 18 97/60 95 11/29/16 19:00 84 11/29/16 19:00 84 11/29/16 19:00 97/60 11/29/16 19:00 95 Nasal Cannula 4.00 11/29/16 18:00 97/64 11/29/16 17:00 102/65 11/29/16 16:00 97/59 11/29/16 15:12 95 Nasal Cannula 2.00 11/29/16 15:12 99.9 82 20 94/58 95 11/29/16 15:00 82 11/29/16 15:00 94/58 11/29/16 14:00 96/60 11/29/16 13:00 95/64 11/29/16 12:00 90/61 Labs: Laboratory Tests Test 11/30/16 11/30/16 00:17 05:50 Activated Partial 36.0 SEC 38.7 SEC Thromboplast Time (24.3-30.1) (24.3-30.1) White Blood Count 3.1 TH/MM3 (4.0-11.0) Red Blood Count 2.35 MIL/MM3 (4.50-5.90) Hemoglobin 7.6 GM/DL (13.0-17.0) Hematocrit 22.3 % (39.0-51.0) Mean Corpuscular Volume 94.9 FL (80.0-100.0) Mean Corpuscular Hemoglobin 32.2 PG (27.0-34.0) Mean Corpuscular Hemoglobin 33.9 % Concent (32.0-36.0) Red Cell Distribution Width 19.6 % (11.6-17.2) Platelet Count 168 TH/MM3 (150-450) Mean Platelet Volume 8.9 FL (7.0-11.0) Neutrophils (%) (Auto) % (16.0-70.0) Lymphocytes (%) (Auto) % (9.0-44.0) Monocytes (%) (Auto) % (0.0-8.0) Eosinophils (%) (Auto) % (0.0-4.0) Basophils (%) (Auto) % (0.0-2.0) Neutrophils # (Auto) TH/MM3 (1.8-7.7) Lymphocytes # (Auto) TH/MM3 (1.0-4.8) Monocytes # (Auto) TH/MM3 (0-0.9) Eosinophils # (Auto) TH/MM3 (0-0.4) Basophils # (Auto) TH/MM3 (0-0.2) CBC Comment AUTO DIFF Differential Total Cells 100 Counted Neutrophils % (Manual) 16 % (16-70) Band Neutrophils % 4 % (0-6) Lymphocytes % 75 % (9-44) Monocytes % 1 % (0-8) Basophils % 2 % (0-2) Neutrophils # (Manual) 0.7 TH/MM3 (1.8-7.7) Metamyelocytes 1 % (0-1) Promyelocytes 1 % (0-0) Differential Comment FINAL DIFF MANUAL Platelet Estimate NORMAL (NORMAL) Platelet Morphology Comment NORMAL (NORMAL) Keratocytes OCC (NORMAL) Sodium Level 142 MEQ/L (136-145) Potassium Level 3.8 MEQ/L (3.5-5.1) Chloride Level 113 MEQ/L (98-107) Carbon Dioxide Level 19.6 MEQ/L (21.0-32.0) Anion Gap 9 MEQ/L (5-15) Blood Urea Nitrogen 21 MG/DL (7-18) Creatinine 0.89 MG/DL (0.60-1.30) Estimat Glomerular Filtration 87 ML/MIN (>89) Rate Random Glucose 87 MG/DL (74-106) Calcium Level 7.6 MG/DL (8.5-10.1) Phosphorus Level 2.1 MG/DL (2.5-4.9) Magnesium Level 2.6 MG/DL (1.5-2.5) Total Bilirubin 1.0 MG/DL (0.2-1.0) Aspartate Amino Transf 52 U/L (15-37) (AST/SGOT) Alanine Aminotransferase 128 U/L (12-78) (ALT/SGPT) Alkaline Phosphatase 98 U/L (45-117) Total Protein 6.4 GM/DL (6.4-8.2) Albumin 3.1 GM/DL (3.4-5.0) Result Diagram: 11/30/16 0550 11/30/16 0550 Telemetry: NSR (1) Chest pain (2) Abnormal EKG (3) STEMI (ST elevation myocardial infarction) Plan: heparin gtt, IABP 1:1, start BB when BP improves unable to start statin 2/2 elevated LFT no ASA for now 2/2 severe profound anemia on admission will need eval by GI and Heme as to when it is safe to start currently on heparin gtt (4) Profound anemia Plan: s/p 5 units PRBC hematolgy following GI following, for upper GI today (5) Leukopenia Plan: further workup pending (6) Ileus Plan: constipation, abd pain / improved for enemas , relistor for ct abd/ pelvis noted, no free air Problem Qualifiers (1) Chest pain: Qualified Code: R07.9 - Chest pain, unspecified type Marianela Jimenez Nov 30, 2016 11:10
--- NOTE | 2016-11-30 14:18 | PD.CARD.PN ---
Subjective Subjective Remarks no events Objective Medications Active Medications Atropine Sulfate (Atropine Inj) 1 mg STK-MED ONCE .ROUTE; Start 11/29/16 at 17: 11; Stop 11/29/16 at 17:12; Status DC Epinephrine HCl (EPINEPHrine (1:10,000) INJ) 1 mg STK-MED ONCE .ROUTE; Start at 17:12; Stop 11/29/16 at 17:13; Status DC Epinephrine HCl 1 mg 1 mg STK-MED ONCE .ROUTE; Start 11/29/16 at 22:23; Stop at 22:24; Status DC Glycerin (Glycerin Adult Supp) 2 gm BID PRN RECTAL; Start 11/30/16 at 09:15 Lactulose (Lactulose Liq) 30 ml DAILY PO; Start 12/01/16 at 09:00 Lactulose (Lactulose Liq) 30 ml ONCE ONCE PO Last administered on 11/30/16 09: 38; Admin Dose 30 ML; Start 11/30/16 at 09:15; Stop 11/30/16 at 09:25; Status DC Polyethylene Glycol (Miralax) 17 gm DAILY PO Last administered on 11/30/16 10:06 ; Admin Dose 17 GM; Start 11/30/16 at 09:15 Potassium Phosphate/Sodium Chloride (Potassium Phosphate Inj/NS Inj) 155 ml @ 38.75 mls/ hr ONCE ONCE IV Last administered on 11/30/16 09:49; Admin Dose 38.75 MLS/HR; Start 11/30/16 at 11:00; Stop 11/30/16 at 14:59 Sennosides (Senokot) 17.2 mg Q12H PO Last administered on 11/30/16 09:39; Admin Dose 17.2 MG; Start 11/30/16 at 10:45 Vital Signs / I&O Vital Signs Date Time Temp Pulse Resp B/P Pulse Ox O2 Delivery O2 Flow Rate FiO2 11/30/16 14:00 106/73 11/30/16 13:00 95/61 11/30/16 12:00 112/71 11/30/16 11:11 98.0 74 20 116/68 96 11/30/16 11:11 96 Nasal Cannula 3.00 11/30/16 11:00 114/62 11/30/16 11:00 74 11/30/16 10:00 99/66 11/30/16 09:13 93 Nasal Cannula 4.00 11/30/16 09:00 105/64 11/30/16 08:00 97.4 73 18 127/63 95 96/64 11/30/16 08:00 96/64 11/30/16 07:57 95 Nasal Cannula 4.00 11/30/16 07:00 74 11/30/16 07:00 94/62 11/30/16 07:00 20 11/30/16 06:00 95/64 11/30/16 05:00 95/65 11/30/16 04:00 91/67 11/30/16 03:00 95 Nasal Cannula 4.00 11/30/16 03:00 86 11/30/16 03:00 97.3 76 18 118/69 95 94/64 11/30/16 03:00 94/64 11/30/16 02:00 97/65 11/30/16 01:00 95/56 11/30/16 00:00 91/60 11/29/16 23:00 81 11/29/16 23:00 99/61 11/29/16 23:00 95 Nasal Cannula 4.00 11/29/16 23:00 97.7 82 20 99/61 95 11/29/16 22:21 95 21 11/29/16 22:00 104/66 11/29/16 21:00 93/61 11/29/16 20:00 99/64 11/29/16 19:00 99.9 84 18 97/60 95 11/29/16 19:00 84 11/29/16 19:00 84 11/29/16 19:00 97/60 11/29/16 19:00 95 Nasal Cannula 4.00 11/29/16 18:00 97/64 11/29/16 17:00 102/65 11/29/16 16:00 97/59 11/29/16 15:12 95 Nasal Cannula 2.00 11/29/16 15:12 99.9 82 20 94/58 95 11/29/16 15:00 82 11/29/16 15:00 94/58 I/O 11/29/16 11/29/16 11/29/16 11/30/16 11/30/16 11/30/16 07:00 15:00 23:00 07:00 15:00 23:00 Intake Total 2964 ml 1306 ml 1547 ml Output Total 1050 ml 725 ml 550 ml Balance 1914 ml 581 ml 997 ml Intake Oral 1200 ml 960 ml 720 ml IV Total 1017 ml 96 ml 827 ml Packed Cells 747 ml 250 ml Output Urine Total 1050 ml 725 ml 550 ml # Bowel Movements 0 0 0 Physical Exam GENERAL: SKIN: Warm and dry. HEAD: Normocephalic. EYES: No scleral icterus. No injection or drainage. NECK: Supple, trachea midline. No JVD or lymphadenopathy. CARDIOVASCULAR: Regular rate and rhythm without murmurs, gallops, or rubs. RESPIRATORY: Breath sounds equal bilaterally. No accessory muscle use. GASTROINTESTINAL: Abdomen soft, non-tender, nondistended. MUSCULOSKELETAL: No cyanosis, or edema. BACK: Nontender without obvious deformity. No CVA tenderness. Laboratory Laboratory Tests Test 11/29/16 11/29/16 11/30/16 11/30/16 17:54 21:01 00:17 05:50 Hemoglobin 7.5 GM/DL 7.6 GM/DL Hematocrit 22.2 % 22.3 % Activated Partial 30.1 SEC 36.0 SEC 38.7 SEC Thromboplast Time Blood Type O NEGATIVE Direct Antiglobulin Test NEGATIVE (Sam) Haptoglobin 207 MG/DL Total Bilirubin 1.3 MG/DL 1.0 MG/DL Direct Bilirubin 0.3 MG/DL Indirect Bilirubin 1.0 MG/DL Lactate Dehydrogenase 329 U/L Total Protein 6.5 GM/DL 6.4 GM/DL Immunoglobulin G Total 1110 MG/DL Immunoglobulin A 408 MG/DL Immunoglobulin M 72 MG/DL HIV (1&2) Antibody NEGATIVE White Blood Count 3.1 TH/MM3 Red Blood Count 2.35 MIL/MM3 Mean Corpuscular Volume 94.9 FL Mean Corpuscular Hemoglobin 32.2 PG Mean Corpuscular Hemoglobin 33.9 % Concent Red Cell Distribution Width 19.6 % Platelet Count 168 TH/MM3 Mean Platelet Volume 8.9 FL Neutrophils (%) (Auto) % Lymphocytes (%) (Auto) % Monocytes (%) (Auto) % Eosinophils (%) (Auto) % Basophils (%) (Auto) % Neutrophils # (Auto) TH/MM3 Lymphocytes # (Auto) TH/MM3 Monocytes # (Auto) TH/MM3 Eosinophils # (Auto) TH/MM3 Basophils # (Auto) TH/MM3 CBC Comment AUTO DIFF Differential Total Cells 100 Counted Neutrophils % (Manual) 16 % Band Neutrophils % 4 % Lymphocytes % 75 % Monocytes % 1 % Basophils % 2 % Neutrophils # (Manual) 0.7 TH/MM3 Metamyelocytes 1 % Promyelocytes 1 % Differential Comment FINAL DIFF MANUAL Platelet Estimate NORMAL Platelet Morphology Comment NORMAL Keratocytes OCC Sodium Level 142 MEQ/L Potassium Level 3.8 MEQ/L Chloride Level 113 MEQ/L Carbon Dioxide Level 19.6 MEQ/L Anion Gap 9 MEQ/L Blood Urea Nitrogen 21 MG/DL Creatinine 0.89 MG/DL Estimat Glomerular Filtration 87 ML/MIN Rate Random Glucose 87 MG/DL Calcium Level 7.6 MG/DL Phosphorus Level 2.1 MG/DL Magnesium Level 2.6 MG/DL Aspartate Amino Transf 52 U/L (AST/SGOT) Alanine Aminotransferase 128 U/L (ALT/SGPT) Alkaline Phosphatase 98 U/L Albumin 3.1 GM/DL Assessment and Plan Problem List: (1) Chest pain (2) Abnormal EKG (3) STEMI (ST elevation myocardial infarction) (4) Profound anemia (5) Leukopenia (6) Ileus Assessment and Plan CAD - LM + multivessel CAD. IABP. heparin gtt. CP free. awaiting cabg. anemia - Heme and GI following Problem Qualifiers (1) Chest pain: Qualified Code: R07.9 - Chest pain, unspecified type Alan Almonte MD Nov 30, 2016 14:18
[2016-11-30 15:42] LABS: APTT (PATIENT) 40.3 SEC (24.3-30.1)
[2016-11-30] MEDS ORDERED: FUROSEMIDE 20 MG/2 ML VIAL IV PUSH ONE (16:00)
--- NOTE | 2016-11-30 17:06 | PD.PROCEDR ---
GI Procedure REFERRING PHYSICIAN Dr. tammi CRANE PERFORMED EGD INDICATION FOR PROCEDURE Anemia PROCEDURE: The procedure, risks and benefits were discussed with Mr. Khanna and informed consent was obtained. Anesthesia sedated him with Diprivan. He was placed in the left lateral decubitus position. EGD: The Pentax videoscope was introduced through the oropharynx and advanced to the second portion of the duodenum under direct visualization. Retroflexion was performed in the stomach. FINDINGS: The esophagus this appeared to be unremarkable except for a mild Schatzki ring The stomach there was a small hiatal hernia otherwise gastric mucosa was unremarkable and within normal limits The duodenum this was normal ESTIMATED BLOOD LOSS: None SPECIMENS REMOVED: None COMPLICATIONS: None IMPRESSION: Schatzki ring Hiatal hernia PLAN: Supportive care GI prophylaxis with PPI as needed No further recommendations from a GI standpoint we will sign off Arnaldo Murguia MD Nov 30, 2016 17:06
[2016-11-30] MEDS ORDERED: MIDAZOLAM HCL 2 MG/2 ML VIAL ONE (17:09)
--- NOTE | 2016-11-30 18:56 | PD.ONC.PN ---
Subjective Subjective Remarks Afebrile overnight. Pt resting in bed in no distress. He states he's in a "food coma" after eating dinner. He feels well and denies SOB or chest pain. Objective Data Date Time Temp Pulse Resp B/P Pulse Ox O2 Delivery O2 Flow Rate FiO2 11/30/16 18:00 106/64 11/30/16 17:00 95/60 11/30/16 16:00 95/60 11/30/16 16:00 96 Nasal Cannula 3.00 11/30/16 16:00 96.6 77 20 107/65 96 11/30/16 15:00 80 11/30/16 15:00 98/67 11/30/16 14:00 106/73 11/30/16 13:00 95/61 11/30/16 12:00 112/71 11/30/16 11:11 98.0 74 20 116/68 96 11/30/16 11:11 96 Nasal Cannula 3.00 11/30/16 11:00 114/62 11/30/16 11:00 74 11/30/16 10:00 99/66 11/30/16 09:13 93 Nasal Cannula 4.00 11/30/16 09:00 105/64 11/30/16 08:00 97.4 73 18 127/63 95 96/64 11/30/16 08:00 96/64 11/30/16 07:57 95 Nasal Cannula 4.00 11/30/16 07:00 74 11/30/16 07:00 94/62 11/30/16 07:00 20 11/30/16 06:00 95/64 11/30/16 05:00 95/65 11/30/16 04:00 91/67 11/30/16 03:00 95 Nasal Cannula 4.00 11/30/16 03:00 86 11/30/16 03:00 97.3 76 18 118/69 95 94/64 11/30/16 03:00 94/64 11/30/16 02:00 97/65 11/30/16 01:00 95/56 11/30/16 00:00 91/60 11/29/16 23:00 81 11/29/16 23:00 99/61 11/29/16 23:00 95 Nasal Cannula 4.00 11/29/16 23:00 97.7 82 20 99/61 95 11/29/16 22:21 95 21 11/29/16 22:00 104/66 11/29/16 21:00 93/61 11/29/16 20:00 99/64 11/29/16 19:00 99.9 84 18 97/60 95 11/29/16 19:00 84 11/29/16 19:00 84 11/29/16 19:00 97/60 11/29/16 19:00 95 Nasal Cannula 4.00 11/30/16 11/30/16 11/30/16 07:00 15:00 23:00 Intake Total 1547 ml 1850 ml Output Total 550 ml 650 ml Balance 997 ml 1200 ml Result Diagram: 11/30/16 0550 11/30/16 0550 Laboratory Results Laboratory Tests Test 11/29/16 11/30/16 11/30/16 11/30/16 21:01 00:17 05:50 14:35 Blood Type O NEGATIVE Direct Antiglobulin Test NEGATIVE (Sam) Haptoglobin 207 MG/DL Total Bilirubin 1.3 MG/DL 1.0 MG/DL Direct Bilirubin 0.3 MG/DL Indirect Bilirubin 1.0 MG/DL Lactate Dehydrogenase 329 U/L Total Protein 6.5 GM/DL 6.4 GM/DL Immunoglobulin G Total 1110 MG/DL Immunoglobulin A 408 MG/DL Immunoglobulin M 72 MG/DL HIV (1&2) Antibody NEGATIVE Activated Partial 36.0 SEC 38.7 SEC 40.3 SEC Thromboplast Time White Blood Count 3.1 TH/MM3 Red Blood Count 2.35 MIL/MM3 Hemoglobin 7.6 GM/DL Hematocrit 22.3 % Mean Corpuscular Volume 94.9 FL Mean Corpuscular Hemoglobin 32.2 PG Mean Corpuscular Hemoglobin 33.9 % Concent Red Cell Distribution Width 19.6 % Platelet Count 168 TH/MM3 Mean Platelet Volume 8.9 FL Neutrophils (%) (Auto) % Lymphocytes (%) (Auto) % Monocytes (%) (Auto) % Eosinophils (%) (Auto) % Basophils (%) (Auto) % Neutrophils # (Auto) TH/MM3 Lymphocytes # (Auto) TH/MM3 Monocytes # (Auto) TH/MM3 Eosinophils # (Auto) TH/MM3 Basophils # (Auto) TH/MM3 CBC Comment AUTO DIFF Differential Total Cells 100 Counted Neutrophils % (Manual) 16 % Band Neutrophils % 4 % Lymphocytes % 75 % Monocytes % 1 % Basophils % 2 % Neutrophils # (Manual) 0.7 TH/MM3 Metamyelocytes 1 % Promyelocytes 1 % Differential Comment FINAL DIFF MANUAL Platelet Estimate NORMAL Platelet Morphology Comment NORMAL Keratocytes OCC Sodium Level 142 MEQ/L Potassium Level 3.8 MEQ/L Chloride Level 113 MEQ/L Carbon Dioxide Level 19.6 MEQ/L Anion Gap 9 MEQ/L Blood Urea Nitrogen 21 MG/DL Creatinine 0.89 MG/DL Estimat Glomerular Filtration 87 ML/MIN Rate Random Glucose 87 MG/DL Calcium Level 7.6 MG/DL Phosphorus Level 2.1 MG/DL Magnesium Level 2.6 MG/DL Aspartate Amino Transf 52 U/L (AST/SGOT) Alanine Aminotransferase 128 U/L (ALT/SGPT) Alkaline Phosphatase 98 U/L Albumin 3.1 GM/DL Test 11/30/16 15:54 Blood Type O NEGATIVE Crossmatch Leukocyte-Reduced Red Blood Cells Blood Bank Comment Administered Medications Medications (Trade) Dose Ordered Sig/Luis Route PRN Reason Start Time Stop Time Status Last Admin Dose Admin IV Flush (NS Flush) 2 ml BID IV FLUSH 11/28/16 21:00 11/30/16 08:54 Acetaminophen/ Hydrocodone Bitart ([place] 5-325 Mg) 1 tab Q4H PRN PO PAIN SCALE 1 TO 5 11/28/16 10:45 11/30/16 05:40 Pantoprazole Sodium (Protonix Inj) 40 mg DAILY IV 11/29/16 09:00 11/30/16 08:53 Docusate Sodium (Colace) 100 mg BID PO 11/28/16 21:00 11/30/16 08:53 Chlorhexidine Gluconate 3 pack 3 pack Taper DAILY@04 TOP 11/29/16 04:00 11/25/17 03:59 11/30/16 04:00 Potassium Chloride/Sodium Chloride (NS + KCl 40 Meq Inj) 1,000 ml @ 100 mls/hr Q10H IV 11/29/16 10:00 11/30/16 08:46 Simethicone (Mylicon Chew) 80 mg Q6HR PRN CHEW flatulence 11/29/16 09:45 11/29/16 10:08 Sennosides (Senokot) 17.2 mg Q12H PO 11/30/16 10:45 2/1/17 09:39 Polyethylene Glycol (Miralax) 17 gm DAILY PO 11/30/16 09:15 11/30/16 10:06 Objective Remarks GENERAL: Overweight middle aged male lying in bed in no distress. SKIN: Warm and dry. HEAD: Normocephalic. EYES: No injection or drainage. NECK: Supple, trachea midline. CARDIOVASCULAR: +S1/S2. Balloon pump in place. RESPIRATORY: Breath sounds equal bilaterally. No accessory muscle use. GASTROINTESTINAL: Abdomen soft, non-tender. Mildly protuberant. EXTREMITIES: No edema. NEUROLOGICAL: No obvious focal deficit. Awake, alert, and oriented x3. Assessment/Plan Problem List: (1) Leukopenia Status: Acute Plan: -- ANC 700 today -- Immunoglobulins WNL -- 2nd protein electrophoresis pending. -- He may possibly need BMB to determine cause of leukopenia/anemia. (2) Profound anemia Status: Chronic Plan: -- EGD today which showed Schatzki's ring and hiatal hernia. Hiatal hernia may contribute to anemia but usually this would be microcytic. -- Transfuse for Hgb less than 8. -- Hemolysis unlikely; haptoglobin slightly elevated, bili normal today. -- Daily CBC -- Hepatitis panel negative (3) STEMI (ST elevation myocardial infarction) Status: Acute Plan: -- Currently on a balloon pump -- Plan for CABG on Monday Assessment 61 y/o male with acute STEMI presents to the ER via [facility]. Plan 1. Transfuse to keep hgb greater than 8. 2. Liver enzymes remain elevated but improving. Hepatitis panel negative. 3. Pt may need BMB to determine cause of leukopenia/anemia. 4. Monitor daily CBC. Attending Statement The exam, history, and the medical decision-making described in the above note were completed with the assistance of the mid-level provider. I reviewed and agree with the findings presented. I attest that I had a [id number] encounter with the patient on the same day, and personally performed and documented my assessment and findings in the medical record. Problem Qualifiers (1) Profound anemia: Qualified Code: D64.9 - Anemia, unspecified type StormMelissaosiel LE Nov 30, 2016 18:56 Neo Ash MD Dec 01, 2016 00:05
[2016-11-30] MEDS: HEPARIN-D5W INJ 250 ML IV SCH (20:33)
[2016-11-30 23:15] LABS: APTT (PATIENT) 40.4 SEC (24.3-30.1)
[2016-12-01] VITALS (9 sets, daily range): BP systolic 102–131; BP diastolic 47–68; PULSE 67–90; RESP 12–20; TEMP 98.6–99.8; O2SAT 92–97
[2016-12-01] MEDS: NS + KCL 40 MEQ INJ 1,000 ML IV SCH ×3 (02:00→20:26)
[2016-12-01] MEDS: ACETAMINOPHEN/HYDROcodone 325 MG/5 MG TAB PO PRN ×2 (03:14→20:32)
[2016-12-01] MEDS: CHLORHEXIDINE GLUCONATE 2 % 1 PACK (2 CLOTHS) TOP SCH (04:00)
[2016-12-01 06:14] LABS: HEMATOCRIT 27.9 % (39.0-51.0); MEAN CELL VOLUME 94.5 FL (80.0-100.0); MEAN CORPUSCULAR HEMOGLOBIN 31.8 PG (27.0-34.0); MEAN CORPUSCULAR HGB CONC 33.7 % (32.0-36.0); PLATELET COUNT 148 TH/MM3 (150-450); RED BLOOD COUNT 2.95 MIL/MM3 (4.50-5.90); RED CELL DISTRIBUTION WIDTH 19.5 % (11.6-17.2); WHITE BLOOD COUNT 2.6 TH/MM3 (4.0-11.0)
[2016-12-01 06:23] LABS: APTT (PATIENT) 39.1 SEC (24.3-30.1)
[2016-12-01 06:30] LABS: HEMO FLAGS AUTO DIFF
[2016-12-01 06:45] LABS: ALKALINE PHOSPHATASE 97 U/L (45-117); ALT (GPT) 94 U/L (12-78); ANION GAP 8 MEQ/L (5-15); AST (GOT) 25 U/L (15-37); BICARBONATE 21.2 MEQ/L (21.0-32.0); BLOOD UREA NITROGEN 20 MG/DL (7-18); CHLORIDE 114 MEQ/L (98-107); GLOMERULAR FILTRATION RATE 82 ML/MIN (>89); MAGNESIUM 2.7 MG/DL (1.5-2.5); POTASSIUM 4.5 MEQ/L (3.5-5.1); SODIUM (NA) 143 MEQ/L (136-145); TOTAL BILIRUBIN ADULT 0.8 MG/DL (0.2-1.0)
--- NOTE | 2016-12-01 07:58 | PD.CARD.PN ---
Subjective Subjective Remarks Feeling well and enjoying his breakfast at time of encounter. He denies chest pain, SOB or palpitations Objective Medications Current Medications Medications (Trade) Dose Ordered Sig/Luis Route Start Time Stop Time Status Last Admin (Atropine Inj) 0.5 mg UNSCH PRN IV 11/28/16 09:15 Metoclopramide HCl 10 mg 10 mg Q4H PRN IV 11/28/16 09:15 (Heparin-D5W Inj) 250 ml @ 0 mls/hr TITRATE IV 11/28/16 10:00 11/30/16 20:33 (NS Flush) 2 ml UNSCH PRN IV FLUSH 11/28/16 10:45 (NS Flush) 2 ml BID IV FLUSH 11/28/16 21:00 11/30/16 08:54 (Tylenol) 650 mg Q6H PRN PO 11/28/16 10:45 ([place] 5-325 Mg) 1 tab Q4H PRN PO 11/28/16 10:45 12/01/16 03:14 (Morphine Inj) 2 mg Q2H PRN IV 11/28/16 10:45 (Protonix Inj) 40 mg DAILY IV 11/29/16 09:00 11/30/16 08:53 (Zofran Inj) 4 mg Q6H PRN IV 11/28/16 10:45 (Colace) 100 mg BID PO 11/28/16 21:00 11/30/16 20:35 Miscellaneous Information 1 Q361D XX 11/28/16 10:45 (Chlorhexidine 2% Cloth) 3 pack Taper DAILY@04 TOP 11/29/16 04:00 11/25/17 03:59 12/01/16 04:00 Chlorhexidine Gluconate 3 pack 3 pack UNSCH PRN TOP 11/28/16 10:45 (NS + KCl 40 Meq Inj) 1,000 ml @ 100 mls/hr Q10H IV 11/29/16 10:00 12/01/16 06:24 Potassium Chloride 40 meq 40 meq UNSCH PRN PO/TUBE 11/29/16 09:00 (KCl 20 Meq Premix Inj) 100 ml @ 50 mls/hr Q2H PRN IV 11/29/16 09:00 (Mylicon Chew) 80 mg Q6HR PRN CHEW 1/31/17 09:45 11/29/16 10:08 (Senokot) 17.2 mg Q12H PO 11/30/16 10:45 11/30/16 22:45 (Miralax) 17 gm DAILY PO 11/30/16 09:15 11/30/16 10:06 (Lactulose Liq) 30 ml DAILY PO 12/01/16 09:00 (Glycerin Adult Supp) 2 gm BID PRN RECTAL 11/30/16 09:15 Vital Signs / I&O Vital Signs Date Time Temp Pulse Resp B/P Pulse Ox O2 Delivery O2 Flow Rate FiO2 12/01/16 07:32 96 Nasal Cannula 2.00 12/01/16 06:00 101/71 12/01/16 05:00 102/68 12/01/16 04:00 94/67 12/01/16 03:00 80 12/01/16 03:00 100/68 12/01/16 03:00 94 Nasal Cannula 3.00 12/01/16 03:00 98.9 85 12 110/68 95 12/01/16 02:00 100/69 12/01/16 01:00 102/64 12/01/16 00:00 99/67 11/30/16 23:30 99.2 83 16 116/69 95 11/30/16 23:00 81 11/30/16 23:00 97/62 11/30/16 23:00 95 Nasal Cannula 3.00 11/30/16 23:00 98.7 86 16 117/60 95 11/30/16 22:00 96/64 11/30/16 21:00 97/69 11/30/16 20:20 93 Nasal Cannula 2.00 11/30/16 20:00 98/64 11/30/16 19:00 98 Nasal Cannula 3.00 11/30/16 19:00 76 11/30/16 19:00 95/65 Arterial Line 11/30/16 19:00 98.6 79 16 119/58 95 11/30/16 18:00 106/64 11/30/16 17:00 95/60 11/30/16 16:00 95/60 11/30/16 16:00 96 Nasal Cannula 3.00 11/30/16 16:00 96.6 77 20 107/65 96 11/30/16 15:00 80 11/30/16 15:00 98/67 11/30/16 14:00 106/73 11/30/16 13:00 95/61 11/30/16 12:00 112/71 11/30/16 11:11 98.0 74 20 116/68 96 11/30/16 11:11 96 Nasal Cannula 3.00 11/30/16 11:00 114/62 11/30/16 11:00 74 11/30/16 10:00 99/66 11/30/16 09:13 93 Nasal Cannula 4.00 11/30/16 09:00 105/64 11/30/16 08:00 97.4 73 18 127/63 95 96/64 11/30/16 08:00 96/64 11/30/16 07:57 95 Nasal Cannula 4.00 I/O 11/30/16 11/30/16 11/30/16 12/01/16 12/01/16 12/01/16 07:00 15:00 23:00 07:00 15:00 23:00 Intake Total 1547 ml 1850 ml 2302 ml Output Total 550 ml 650 ml 450 ml Balance 997 ml 1200 ml 1852 ml Intake Oral 720 ml 120 ml 720 ml IV Total 827 ml 1480 ml 1332 ml Packed Cells 250 ml 250 ml Output Urine Total 550 ml 650 ml 450 ml # Bowel Movements 0 0 1 Physical Exam GENERAL: SKIN: Warm and dry. HEAD: Atraumatic. Normocephalic. ENT: No nasal bleeding or discharge. t. NECK: Trachea midline. No JVD. CARDIOVASCULAR: Regular rate and rhythm. No murmurs RESPIRATORY: No accessory muscle use. Clear to auscultation. Breath sounds equal bilaterally. GASTROINTESTINAL: Abdomen soft, non-tender, nondistended. le. MUSCULOSKELETAL: Extremities without clubbing, cyanosis, or edema. NEUROLOGICAL: Awake and alert. No obvious cranial nerve deficits. Normal speech. PSYCHIATRIC: Appropriate mood and affect; insight and judgment normal. Laboratory Laboratory Tests Test 11/30/16 11/30/16 11/30/16 12/01/16 14:35 15:54 22:42 05:55 Activated Partial 40.3 SEC 40.4 SEC 39.1 SEC Thromboplast Time Blood Type O NEGATIVE O NEGATIVE Crossmatch Leukocyte-Reduced Leukocyte-Reduced Red Blood Red Blood Cells Cells Blood Bank Comment White Blood Count 2.6 TH/MM3 Red Blood Count 2.95 MIL/MM3 Hemoglobin 9.4 GM/DL Hematocrit 27.9 % Mean Corpuscular Volume 94.5 FL Mean Corpuscular Hemoglobin 31.8 PG Mean Corpuscular Hemoglobin 33.7 % Concent Red Cell Distribution Width 19.5 % Platelet Count 148 TH/MM3 Mean Platelet Volume 8.9 FL Neutrophils (%) (Auto) % Lymphocytes (%) (Auto) % Monocytes (%) (Auto) % Eosinophils (%) (Auto) % Basophils (%) (Auto) % Neutrophils # (Auto) TH/MM3 Lymphocytes # (Auto) TH/MM3 Monocytes # (Auto) TH/MM3 Eosinophils # (Auto) TH/MM3 Basophils # (Auto) TH/MM3 CBC Comment AUTO DIFF Sodium Level 143 MEQ/L Potassium Level 4.5 MEQ/L Chloride Level 114 MEQ/L Carbon Dioxide Level 21.2 MEQ/L Anion Gap 8 MEQ/L Blood Urea Nitrogen 20 MG/DL Creatinine 0.94 MG/DL Estimat Glomerular Filtration 82 ML/MIN Rate Random Glucose 109 MG/DL Calcium Level 7.5 MG/DL Phosphorus Level 2.5 MG/DL Magnesium Level 2.7 MG/DL Total Bilirubin 0.8 MG/DL Aspartate Amino Transf 25 U/L (AST/SGOT) Alanine Aminotransferase 94 U/L (ALT/SGPT) Alkaline Phosphatase 97 U/L Total Protein 6.5 GM/DL Albumin 3.0 GM/DL Antibody Screen NEGATIVE Assessment and Plan Problem List: (1) Chest pain (2) Abnormal EKG (3) STEMI (ST elevation myocardial infarction) (4) Profound anemia (5) Leukopenia (6) Ileus Assessment and Plan 61 yo WM presented with acute STEMI CAD- LM and multivessel CAD, awaiting CABG planned for tomorrow. IABP. currently chest pain free and comfortable, heparin gtt. leukopenia/anemia- endoscopy showed Schatzki's ring and hiatal hernia; hematology continues to follow Problem Qualifiers (1) Chest pain: Qualified Code: R07.9 - Chest pain, unspecified type (2) Profound anemia: Qualified Code: D64.9 - Anemia, unspecified type Kiara Hoyos Dec 01, 2016 07:58
[2016-12-01 08:34] LABS: BASOPHILS 2 % (0-2); CORRECTED NUCLEATED RBC 4 /100 WBC (0-0); MYELOCYTES 1 % (0-0); NEUTROPHIL # MANUAL DIFF 0.5 TH/MM3 (1.8-7.7); POLYS (SEG NEUTROPHILS) 17 % (16-70); WBC DIFF SAMPLE 100
[2016-12-01 08:36] LABS: PLATELET ESTIMATE SMEAR LOW (NORMAL); PLATELET MORPHOLOGY NORMAL (NORMAL); SCAN/DIFF FINAL DIFF MANUAL
[2016-12-01] MEDS: PANTOPRAZOLE SODIUM 40 MG VIAL IV SCH (08:39)
[2016-12-01] MEDS: POLYETHYLENE GLYCOL 17 GM PKG PO SCH (08:39)
[2016-12-01] MEDS: SODIUM CHLORIDE 0.9% FLUSH 5 ML FLUSH IV FLUSH SCH ×2 (08:40→20:26)
--- NOTE | 2016-12-01 08:55 | RSPPFT ---
DATE OF PROCEDURE: 11/29/16 COMMENTS: VOLUMES DYNAMIC: FVC mildly reduced; FEV1 severely reduced. FLOWS: FEV1% moderately reduced; FEF 25-75 severely reduced. IMPRESSION: Severe obstructive ventilatory defect.
[2016-12-01] MEDS ORDERED: FUROSEMIDE 20 MG/2 ML VIAL IV PUSH ONE (09:00)
[2016-12-01] MEDS: DOCUSATE SODIUM 100 MG CAP PO SCH ×2 (09:00→20:32)
[2016-12-01] MEDS ORDERED: LACTULOSE SYRUP 20 GM/30 ML CUP PO SCH (09:00)
[2016-12-01] MEDS ORDERED: METOPROLOL TARTRATE 25 MG TAB PO ONE (09:00)
[2016-12-01] MEDS ORDERED: PILL SPLITTER OTHER PRN (09:15)
[2016-12-01 10:22] LABS: ALBUMIN SPE 3.94 GM/DL (3.50-5.00); ALPHA 1 GLOBULIN 0.23 GM/DL (0.11-0.29); ALPHA 2 GLOBULIN 0.63 GM/DL (0.22-1.00); BETA GLOBULINS (SPE) 0.6 GM/DL (0.53-1.03)
[2016-12-01] MEDS ORDERED: ASPI1TAB69 PO (11:45)
[2016-12-01] MEDS: SENNOSIDES 8.6 MG TAB PO SCH ×2 (11:50→20:32)
--- NOTE | 2016-12-01 12:54 | PD.ONC.PN ---
Subjective Subjective Remarks Tmax 99.2 overnight. Pt lying in bed with visitor present. He is jovial. He has no complaints. Per RN there has been no bleeding. Objective Data Date Time Temp Pulse Resp B/P Pulse Ox O2 Delivery O2 Flow Rate FiO2 12/01/16 12:00 94/112 12/01/16 11:00 76 12/01/16 11:00 99.8 76 20 131/66 92 12/01/16 11:00 96 Nasal Cannula 4.00 12/01/16 11:00 98/67 12/01/16 10:00 98/65 12/01/16 09:00 91/59 12/01/16 08:00 101/65 12/01/16 07:32 96 Nasal Cannula 2.00 12/01/16 07:00 90 12/01/16 07:00 102/69 12/01/16 07:00 96 Nasal Cannula 4.00 12/01/16 07:00 98.6 90 20 106/60 96 12/01/16 06:00 101/71 12/01/16 05:00 102/68 12/01/16 04:00 94/67 12/01/16 03:00 80 12/01/16 03:00 100/68 12/01/16 03:00 94 Nasal Cannula 3.00 12/01/16 03:00 98.9 85 12 110/68 95 12/01/16 02:00 100/69 12/01/16 01:00 102/64 12/01/16 00:00 99/67 11/30/16 23:30 99.2 83 16 116/69 95 11/30/16 23:00 81 11/30/16 23:00 97/62 11/30/16 23:00 95 Nasal Cannula 3.00 11/30/16 23:00 98.7 86 16 117/60 95 11/30/16 22:00 96/64 11/30/16 21:00 97/69 11/30/16 20:20 93 Nasal Cannula 2.00 11/30/16 20:00 98/64 11/30/16 19:00 98 Nasal Cannula 3.00 11/30/16 19:00 76 11/30/16 19:00 95/65 Arterial Line 11/30/16 19:00 98.6 79 16 119/58 95 11/30/16 18:00 106/64 11/30/16 17:00 95/60 11/30/16 16:00 95/60 11/30/16 16:00 96 Nasal Cannula 3.00 11/30/16 16:00 96.6 77 20 107/65 96 11/30/16 15:00 80 11/30/16 15:00 98/67 11/30/16 14:00 106/73 11/30/16 13:00 95/61 12/01/16 12/01/16 12/01/16 07:00 15:00 23:00 Intake Total 2302 ml Output Total 450 ml Balance 1852 ml Result Diagram: 12/01/16 0555 12/01/16 0555 Laboratory Results Laboratory Tests Test 11/30/16 11/30/16 11/30/16 12/01/16 14:35 15:54 22:42 05:55 Activated Partial 40.3 SEC 40.4 SEC 39.1 SEC Thromboplast Time Blood Type O NEGATIVE O NEGATIVE Crossmatch Leukocyte-Reduced Leukocyte-Reduced Red Blood Red Blood Cells Cells Blood Bank Comment White Blood Count 2.6 TH/MM3 Red Blood Count 2.95 MIL/MM3 Hemoglobin 9.4 GM/DL Hematocrit 27.9 % Mean Corpuscular Volume 94.5 FL Mean Corpuscular Hemoglobin 31.8 PG Mean Corpuscular Hemoglobin 33.7 % Concent Red Cell Distribution Width 19.5 % Platelet Count 148 TH/MM3 Mean Platelet Volume 8.9 FL Neutrophils (%) (Auto) % Lymphocytes (%) (Auto) % Monocytes (%) (Auto) % Eosinophils (%) (Auto) % Basophils (%) (Auto) % Neutrophils # (Auto) TH/MM3 Lymphocytes # (Auto) TH/MM3 Monocytes # (Auto) TH/MM3 Eosinophils # (Auto) TH/MM3 Basophils # (Auto) TH/MM3 CBC Comment AUTO DIFF Differential Total Cells 100 Counted Neutrophils % (Manual) 17 % Lymphocytes % 74 % Monocytes % 6 % Basophils % 2 % Neutrophils # (Manual) 0.5 TH/MM3 Myelocytes 1 % Nucleated Red Blood Cells 4 /100 WBC Differential Comment FINAL DIFF MANUAL Atypical Lymphocytes % Platelet Estimate LOW Platelet Morphology Comment NORMAL Sodium Level 143 MEQ/L Potassium Level 4.5 MEQ/L Chloride Level 114 MEQ/L Carbon Dioxide Level 21.2 MEQ/L Anion Gap 8 MEQ/L Blood Urea Nitrogen 20 MG/DL Creatinine 0.94 MG/DL Estimat Glomerular Filtration 82 ML/MIN Rate Random Glucose 109 MG/DL Calcium Level 7.5 MG/DL Phosphorus Level 2.5 MG/DL Magnesium Level 2.7 MG/DL Total Bilirubin 0.8 MG/DL Aspartate Amino Transf 25 U/L (AST/SGOT) Alanine Aminotransferase 94 U/L (ALT/SGPT) Alkaline Phosphatase 97 U/L Total Protein 6.5 GM/DL Albumin 3.0 GM/DL Antibody Screen NEGATIVE Administered Medications Medications (Trade) Dose Ordered Sig/Luis Route PRN Reason Start Time Stop Time Status Last Admin Dose Admin Heparin Sodium/ Dextrose (Heparin-D5W Inj) 250 ml @ 0 mls/hr TITRATE IV 11/28/16 10:00 11/30/16 20:33 IV Flush (NS Flush) 2 ml BID IV FLUSH 11/28/16 21:00 12/01/16 08:40 Acetaminophen/ Hydrocodone Bitart ([place] 5-325 Mg) 1 tab Q4H PRN PO PAIN SCALE 1 TO 5 11/28/16 10:45 12/01/16 03:14 Pantoprazole Sodium (Protonix Inj) 40 mg DAILY IV 11/29/16 09:00 12/01/16 08:39 Docusate Sodium (Colace) 100 mg BID PO 11/28/16 21:00 11/30/16 20:35 Chlorhexidine Gluconate 3 pack 3 pack Taper DAILY@04 TOP 11/29/16 04:00 11/25/17 03:59 12/01/16 04:00 Potassium Chloride/Sodium Chloride (NS + KCl 40 Meq Inj) 1,000 ml @ 100 mls/hr Q10H IV 11/29/16 10:00 12/01/16 06:24 Simethicone (Mylicon Chew) 80 mg Q6HR PRN CHEW flatulence 11/29/16 09:45 11/29/16 10:08 Sennosides (Senokot) 17.2 mg Q12H PO 11/30/16 10:45 12/01/16 11:50 Polyethylene Glycol (Miralax) 17 gm DAILY PO 11/30/16 09:15 12/01/16 08:39 Lactulose (Lactulose Liq) 30 ml DAILY PO 12/01/16 09:00 12/01/16 08:39 Objective Remarks GENERAL: Overweight middle aged male lying in bed in no distress. SKIN: Warm and dry. HEAD: Normocephalic. EYES: No injection or drainage. NECK: Supple, trachea midline. CARDIOVASCULAR: +S1/S2. Balloon pump in place. RESPIRATORY: Breath sounds equal bilaterally. No accessory muscle use. GASTROINTESTINAL: Abdomen soft, non-tender. Mildly protuberant. EXTREMITIES: No edema. NEUROLOGICAL: No obvious focal deficit. Awake, alert, and oriented x3. Assessment/Plan Problem List: (1) Leukopenia Status: Acute Plan: -- ANC 500 today -- Immunoglobulins WNL -- 2nd protein electrophoresis pending. -- He may possibly need BMB to determine cause of leukopenia/anemia. (2) Profound anemia Status: Chronic Plan: -- EGD on 12/01 which showed Schatzki's ring and hiatal hernia. Hiatal hernia may contribute to anemia but usually this would be microcytic. -- Transfuse for Hgb less than 8. -- Hemolysis unlikely; haptoglobin slightly elevated, bili normal today. -- Daily CBC -- Hepatitis panel negative (3) STEMI (ST elevation myocardial infarction) Status: Acute Plan: -- Currently on a balloon pump -- Plan for CABG on Monday Assessment 61 y/o male with acute STEMI presents to the ER via [facility]. Plan 1. No transfusion today. 2. Monitor daily CBC 3. Pt may need BMB to determine cause of leukopenia/anemia. 4. CABG planned for tomorrow. Attending Statement The exam, history, and the medical decision-making described in the above note were completed with the assistance of the mid-level provider. I reviewed and agree with the findings presented. I attest that I had a [id number] encounter with the patient on the same day, and personally performed and documented my assessment and findings in the medical record. Palns for CABG tomorrow, Continue transfusional support. Keep Hb > 8. Possibility of underlying MDS or lymphoproliferative disorder exists. Will send for Peripheral blood flow cytometry. Further w/u after surgery and when the patient is stable. SPEP normal. Problem Qualifiers (1) Profound anemia: Qualified Code: D64.9 - Anemia, unspecified type Melissa Inman Dec 01, 2016 12:54 Neo Ahs MD Dec 01, 2016 20:27
--- NOTE | 2016-12-01 13:15 | PD.CAR.PN ---
CVT Progress Note Subjective/Hospital Course: 61 yo male.. DOA 11/28/16. PMH LBP, tobaccoism, colon polyps, R ing hernia repair x2, C -spine x2 and occ ETOH ([place]) presents to ED with ongoing "burning " CP present for several weeks exacerbated today. At rest. Received NTG some relief. EKG changes, STT - inf and lat leads. Takes ASA daily since bro from "his aorta" Hgb low ~ 3. Brown stools acc to pt. Hx colon polys - benign 2 years ago w/[facility] lab/ STEMI , HGB 3.7 / HCT 10.9 WBC 1.7 Cath - EF 35%; 90% LMain, 30% prox LAD, 95% mid LAD, 80% Cx, 20% OM1, 100% RCA. IABP placed augmented ~110. Currently CP free on 5L NC GI consulted , Hematology consulted 11/29 s/p 5 units PRBC infused Abd KUB noted , + ileus / large amount of stool for enemas today, CT abd and pelvis pending augmenting 1:1 augmentation pressure 107 on Heparin gtt, await eval by hematology to r/o malignancy, bone marrow suppression prior to scheduling of CABG 11/30 appreciate hematology input, MDS vs leukemia workup still pending ? timing for bone marrow bx still has IABP 1:1 augmenting 104 + distal pulses abdomen less distended/ small BM after enemas yesterday for upper GI today will need clearance from Hematology for surgery 12/01 HGB stable, on heparin gtt stable for surgery in am will need Bone marrow BX post surgery at some point IABP1:1 Objective: GENERAL: SKIN: Warm and dry. HEAD: Normocephalic. EYES: No scleral icterus. No injection or drainage. NECK: Supple, trachea midline. No JVD or lymphadenopathy. CARDIOVASCULAR: Regular rate and rhythm without murmurs, gallops, or rubs. IABP right groin, no hematoma , + distal pulse RESPIRATORY: Breath sounds equal bilaterally. No accessory muscle use. GASTROINTESTINAL: Abdomen soft, non-tender, nondistended. MUSCULOSKELETAL: No cyanosis, or edema. BACK: Nontender without obvious deformity. No CVA tenderness. Vital Signs Date Time Temp Pulse Resp B/P Pulse Ox O2 Delivery O2 Flow Rate FiO2 12/01/16 13:08 12/01/16 12:00 94/112 12/01/16 11:00 76 12/01/16 11:00 99.8 76 20 131/66 92 12/01/16 11:00 96 Nasal Cannula 4.00 12/01/16 11:00 98/67 12/01/16 10:00 98/65 12/01/16 09:00 91/59 12/01/16 08:00 101/65 12/01/16 07:32 96 Nasal Cannula 2.00 12/01/16 07:00 90 12/01/16 07:00 102/69 12/01/16 07:00 96 Nasal Cannula 4.00 12/01/16 07:00 98.6 90 20 106/60 96 12/01/16 06:00 101/71 12/01/16 05:00 102/68 12/01/16 04:00 94/67 12/01/16 03:00 80 12/01/16 03:00 100/68 12/01/16 03:00 94 Nasal Cannula 3.00 12/01/16 03:00 98.9 85 12 110/68 95 12/01/16 02:00 100/69 12/01/16 01:00 102/64 12/01/16 00:00 99/67 11/30/16 23:30 99.2 83 16 116/69 95 11/30/16 23:00 81 11/30/16 23:00 97/62 11/30/16 23:00 95 Nasal Cannula 3.00 11/30/16 23:00 98.7 86 16 117/60 95 11/30/16 22:00 96/64 11/30/16 21:00 97/69 11/30/16 20:20 93 Nasal Cannula 2.00 11/30/16 20:00 98/64 11/30/16 19:00 98 Nasal Cannula 3.00 11/30/16 19:00 76 11/30/16 19:00 95/65 Arterial Line 11/30/16 19:00 98.6 79 16 119/58 95 11/30/16 18:00 106/64 11/30/16 17:00 95/60 11/30/16 16:00 95/60 11/30/16 16:00 96 Nasal Cannula 3.00 11/30/16 16:00 96.6 77 20 107/65 96 11/30/16 15:00 80 11/30/16 15:00 98/67 11/30/16 14:00 106/73 Labs: Laboratory Tests Test 12/01/16 05:55 White Blood Count 2.6 TH/MM3 (4.0-11.0) Red Blood Count 2.95 MIL/MM3 (4.50-5.90) Hemoglobin 9.4 GM/DL (13.0-17.0) Hematocrit 27.9 % (39.0-51.0) Mean Corpuscular Volume 94.5 FL (80.0-100.0) Mean Corpuscular Hemoglobin 31.8 PG (27.0-34.0) Mean Corpuscular Hemoglobin 33.7 % Concent (32.0-36.0) Red Cell Distribution Width 19.5 % (11.6-17.2) Platelet Count 148 TH/MM3 (150-450) Mean Platelet Volume 8.9 FL (7.0-11.0) Neutrophils (%) (Auto) % (16.0-70.0) Lymphocytes (%) (Auto) % (9.0-44.0) Monocytes (%) (Auto) % (0.0-8.0) Eosinophils (%) (Auto) % (0.0-4.0) Basophils (%) (Auto) % (0.0-2.0) Neutrophils # (Auto) TH/MM3 (1.8-7.7) Lymphocytes # (Auto) TH/MM3 (1.0-4.8) Monocytes # (Auto) TH/MM3 (0-0.9) Eosinophils # (Auto) TH/MM3 (0-0.4) Basophils # (Auto) TH/MM3 (0-0.2) CBC Comment AUTO DIFF Differential Total Cells 100 Counted Neutrophils % (Manual) 17 % (16-70) Lymphocytes % 74 % (9-44) Monocytes % 6 % (0-8) Basophils % 2 % (0-2) Neutrophils # (Manual) 0.5 TH/MM3 (1.8-7.7) Myelocytes 1 % (0-0) Nucleated Red Blood Cells 4 /100 WBC (0-0) Differential Comment FINAL DIFF MANUAL Atypical Lymphocytes % (0-0) Platelet Estimate LOW (NORMAL) Platelet Morphology Comment NORMAL (NORMAL) Activated Partial 39.1 SEC Thromboplast Time (24.3-30.1) Sodium Level 143 MEQ/L (136-145) Potassium Level 4.5 MEQ/L (3.5-5.1) Chloride Level 114 MEQ/L (98-107) Carbon Dioxide Level 21.2 MEQ/L (21.0-32.0) Anion Gap 8 MEQ/L (5-15) Blood Urea Nitrogen 20 MG/DL (7-18) Creatinine 0.94 MG/DL (0.60-1.30) Estimat Glomerular Filtration 82 ML/MIN (>89) Rate Random Glucose 109 MG/DL (74-106) Calcium Level 7.5 MG/DL (8.5-10.1) Phosphorus Level 2.5 MG/DL (2.5-4.9) Magnesium Level 2.7 MG/DL (1.5-2.5) Total Bilirubin 0.8 MG/DL (0.2-1.0) Aspartate Amino Transf 25 U/L (15-37) (AST/SGOT) Alanine Aminotransferase 94 U/L (12-78) (ALT/SGPT) Alkaline Phosphatase 97 U/L (45-117) Total Protein 6.5 GM/DL (6.4-8.2) Albumin 3.0 GM/DL (3.4-5.0) Blood Type O NEGATIVE Antibody Screen NEGATIVE Crossmatch Leukocyte-Reduced Red Blood Cells Blood Bank Comment Result Diagram: 12/01/1655 12/01/1655 (1) Chest pain (2) Abnormal EKG (3) STEMI (ST elevation myocardial infarction) Plan: heparin gtt, IABP 1:1, start BB when BP improves unable to start statin 2/2 elevated LFT no ASA for now 2/2 severe profound anemia on admission s/p upper GI, will need eval by GI and Heme as to when it is safe to start currently on heparin gtt (4) Profound anemia Plan: s/p 5 units PRBC HGB 9.4 hematolgy following GI s/p upper GI 2/1 Schatzki ring Hiatal hernia on PPI, GI has signed off (5) Leukopenia Plan: further workup pending (6) Ileus Plan: constipation, abd pain / improved for enemas , relistor for ct abd/ pelvis noted, no free air Problem Qualifiers (1) Chest pain: Qualified Code: R07.9 - Chest pain, unspecified type (2) Profound anemia: Qualified Code: D64.9 - Anemia, unspecified type Marianela Jimenez Dec 01, 2016 13:14
[2016-12-01] MEDS: HEPARIN-D5W INJ 250 ML IV SCH (14:17)
--- NOTE | 2016-12-01 15:26 | HHI.CCPN ---
Subjective Remarks/Hospital Course 61 yo male.. DOA 11/28/16. PMH LBP, tobaccoism, colon polyps, R ing hernia repair x2, C -spine x2 and occ ETOH ([place]) presents to ED with ongoing "burning " CP present for several weeks exacerbated today. At rest. Received NTG some relief. EKG changes, STT - inf and lat leads. Takes ASA daily since bro from "his aorta" Hgb low ~ 3. Brown stools acc to pt. Hx colon polys - benign 2 years ago w/VACath lab Cath - EF 35%; 90% LMain, 30% prox LAD, 95% mid LAD, 80% Cx, 20% OM1, 100% RCA. IABP placed augmented ~110. Currently CP free on 5L NC 11/29: Afebrile. Continues on IABP at 1:1. Transfuse to total 4 PRBCs since admission. Last bowel movement on Monday?. Some abdominal distention and copious gas and bowel and x-ray. Enemas provided. 2/: Afebrile. Resting in bed. Passing flatulence. Small smear for bowel movement. Complaining of abdominal distention. 2/2: Resting in bed comfortably. IABP in place, awaiting CABG scheduled for tomorrow. Objective Vital Signs Date Time Temp Pulse Resp B/P Pulse Ox O2 Delivery O2 Flow Rate FiO2 12/01/16 15:11 98.9 67 20 131/66 97 12/01/16 15:10 Nasal Cannula 5.00 11/29/16 22:21 21 Intake and Output 11/30/16 11/30/16 12/01/16 08:00 16:00 00:00 Intake Total 1547 ml 1850 ml Output Total 550 ml 650 ml Balance 997 ml 1200 ml Result Diagram: 12/01/16 0555 12/01/16 0555 Imaging Last Impressions Chest X-Ray 11/29/16 0000 Signed Impressions: Service Date/Time: Tuesday, November 29, 2016 10:56 - CONCLUSION: Mild improving pulmonary edema. Pedrito Gregg MD Abdomen/Pelvis CT 11/29/16 0000 Signed Impressions: Service Date/Time: Tuesday, November 29, 2016 17:22 - CONCLUSION: No evidence of retroperitoneal hemorrhage or etiology for anemia is identified. There is air lucency within the descending aorta I suspect is artifactual but I cannot confirm any definite metal. Bowel gas pattern is unremarkable. Diverticulosis without evidence of diverticulitis. Alan Gabriel MD Abdomen X-Ray 11/29/16 0000 Signed Impressions: Service Date/Time: Tuesday, November 29, 2016 10:38 - CONCLUSION: No significant change in the overall bowel gas pattern compared to the prior study. Pedrito Gregg MD Lower Extremity Ultrasound 11/28/16 Signed Impressions: Service Date/Time: Monday, November 28, 2016 13:27 - CONCLUSION: 1. Venous mapping as above Abiel Barrow MD Carotid Artery Ultrasound 11/28/16 Signed Impressions: Service Date/Time: Monday, November 28, 2016 12:41 - CONCLUSION: Negative examination for a hemodynamically significant carotid stenosis. Maicol Mccloud MD Abdomen Ultrasound 11/28/16 Signed Impressions: Service Date/Time: Monday, November 28, 2016 12:18 - CONCLUSION: Negative for intrahepatic ductal dilatation. Negative for hydronephrosis. Maicol Mccloud MD FACR Objective Remarks GENERAL: 61 yo male laying in bed w/ IABP NAD SKIN: PAle and dry. No rash HEAD: Atraumatic. Normocephalic. EYES: Pupils equal and round 3 m b/l and rx. No scleral icterus. No injection or drainage. ENT: No nasal bleeding or discharge. Mucous membranes pink and moist. NECK: Trachea midline. No JVD. CARDIOVASCULAR: Regular rate and rhythm. S1, S2. IABP augmentation RESPIRATORY: No accessory muscle use. Clear to auscultation. Breath sounds equal bilaterally. GASTROINTESTINAL: Abdomen slightly distended.. Normal bowel sounds without. + MUSCULOSKELETAL: Extremities without significant edema. No obvious deformities. IABP in R groin C/D/I NEUROLOGICAL: Awake and alert. No obvious cranial nerve deficits. Motor grossly within normal limits. Five out of 5 muscle strength in the arms and legs. Normal speech. PSYCHIATRIC: Appropriate mood and affect; insight and judgment normal. A/P Assessment and Plan Neuro/Psych: ETOH Acetominophen for pain Tok/MSO4 for pn management Thiamine, folic/MVI daily CV 3V CAD CG shock Elevated troponin Cath -EF 35%. Lmain 90%, prox LAD 30%, midLAD 95%, Cx 80%, OM1 20%, RCA 100% IABP 1:1 augmented ~ 110 CTS following. Scheduled for CABG for tomorrow. Cholesterol actually 80. Echo revealed EF 30-35%. Mild AR, MR and TR. RENATE 41 mmHg. Pulm Resp insuff Tobacco NC sats > 92% [id number] Tob cessation encouraged CXR - B/L inf/effusions/CM CT and pelvis revealed small bilateral pleural effusion/right lower lobe atelectasis GI Elevated transaminases Question early ileus Constipation GI s/p upper GI 11/30- Schatzki ring, Hiatal hernia on PPI, GI has signed off Colace/Senna/MiraLAX/lactulose BM regimen Received Relistor, enema for colonic ileus. Hemoccult stool Hepatitis negative Pending AMA, ASMA, OLEG No ductal dilatation liver ultrasound CT abdomen/pelvis revealed nonspecific bowel gas pattern. House accurate I/O's in critical ill pt Heme Macro Anemia Neutrophilia Leukopenia Low plts Tx 5U PRBC total B12 and TSH normal. Folate actually slightly elevated. Peripheral smear revealed macrocytic anemia and absolute neutrophilia. Heme c/s Reticulocyte count normal at 1.7. Absolute check slightly low at 17.5. Note reticulocyte count this was drawn off yesterday's labs prior to blood transfusion. Check SPEP, HIV status Normal IgA/G/M Haptoglobin slightly elevated 207. LDH elevated Evaluated By hematology. ID Monitor for infection Renal KHALIF Creatinine slowly normalizing Renal ultrasound revealed no hydronephrosis Recx BMP in AM Currently on NS with KCl 100 cc an hour MSK Bedrest with balloon pump FEN: Replace electrolytes as clinically indicated Access PIV. CVL if indicated Proph GI- Protonix DVT - heparin Patient is scheduled for CABG for tomorrow. Patient will be transferred to CT surgery service. Critical care will be signing off. Please reconsult if needed. Chepe Jensen MD Dec 01, 2016 15:26
[2016-12-01 21:42] LABS: APTT (PATIENT) 43.6 SEC (24.3-30.1)
[2016-12-02] VITALS (20 sets, daily range): BP systolic 80–128; BP diastolic 51–67; PULSE 64–113; RESP 16–22; TEMP 96–98.2; O2SAT 88–99
[2016-12-02] MEDS: SODIUM CHLORID 0.9% 500 ML IV SCH ×2 (02:45→17:44)
[2016-12-02] MEDS ORDERED: INSULIN HUMAN REGULAR 1,000 UNITS/10 ML VIAL SQ PRN (02:45)
[2016-12-02] MEDS: LACTATED RINGER'S 1000 ML IV SCH (02:45)
[2016-12-02] MEDS: CHLORHEXIDINE GLUCONATE 2 % 1 PACK (2 CLOTHS) TOP SCH (02:56)
[2016-12-02 05:13] LABS: APTT (PATIENT) 44.5 SEC (24.3-30.1)
[2016-12-02 05:15] LABS: HEMATOCRIT 26.5 % (39.0-51.0); MEAN CELL VOLUME 93.3 FL (80.0-100.0); MEAN CORPUSCULAR HEMOGLOBIN 31.3 PG (27.0-34.0); MEAN CORPUSCULAR HGB CONC 33.5 % (32.0-36.0); PLATELET COUNT 128 TH/MM3 (150-450); RED BLOOD COUNT 2.84 MIL/MM3 (4.50-5.90); RED CELL DISTRIBUTION WIDTH 19.5 % (11.6-17.2); WHITE BLOOD COUNT 2.9 TH/MM3 (4.0-11.0)
[2016-12-02 05:21] LABS: HEMO FLAGS AUTO DIFF
[2016-12-02 05:24] LABS: ALKALINE PHOSPHATASE 93 U/L (45-117); ALT (GPT) 64 U/L (12-78); ANION GAP 9 MEQ/L (5-15); AST (GOT) 13 U/L (15-37); BICARBONATE 21.2 MEQ/L (21.0-32.0); BLOOD UREA NITROGEN 19 MG/DL (7-18); CHLORIDE 112 MEQ/L (98-107); GLOMERULAR FILTRATION RATE 93 ML/MIN (>89); POTASSIUM 3.8 MEQ/L (3.5-5.1); SODIUM (NA) 142 MEQ/L (136-145); TOTAL BILIRUBIN ADULT 0.6 MG/DL (0.2-1.0)
[2016-12-02] MEDS ORDERED: HEPARIN SODIUM - IV 10,000 UNITS/10 ML VIAL ONE ×2 (06:23→07:15)
[2016-12-02] MEDS ORDERED: methylPREDNISolone SOD SUCC 125 MG/2 ML VIAL ONE (06:24)
[2016-12-02] MEDS ORDERED: HEPARIN SODIUM - SQ 10,000 UNITS/ML VIAL ONE (06:24)
[2016-12-02] MEDS ORDERED: VANCOMYCIN HCL 1000 MG VIAL ONE (06:24)
[2016-12-02 07:08] LABS: BASOPHILS 1 % (0-2); CORRECTED NUCLEATED RBC 2 /100 WBC (0-0); EOSINOPHILS 1 % (0-4); NEUTROPHIL # MANUAL DIFF 0.6 TH/MM3 (1.8-7.7); POLYS (SEG NEUTROPHILS) 19 % (16-70); SCAN/DIFF FINAL DIFF MANUAL; WBC DIFF SAMPLE 100
[2016-12-02 07:09] LABS: KERATOCYTES OCC (NORMAL); PLATELET ESTIMATE SMEAR LOW (NORMAL); PLATELET MORPHOLOGY ENLARGED (NORMAL)
[2016-12-02] MEDS ORDERED: CARDIOPLEGIC IRR 1,000 ML ONE (07:15)
[2016-12-02] MEDS ORDERED: SODIUM BICARBONATE 8.4% INJ 50 ML ONE ×3 (07:15→15:09)
[2016-12-02] MEDS ORDERED: MANNITOL INJ 50 ML ONE (07:16)
[2016-12-02] MEDS ORDERED: CALCIUM CHLORIDE 10% SOLN 1 GRAM/10 ML SYR ONE (07:16)
[2016-12-02] MEDS ORDERED: POTASSIUM CHLORIDE 20 MEQ/10 ML VIAL ONE ×2 (07:16)
[2016-12-02] MEDS ORDERED: ALBUMIN HUMAN 25% 12.5 GM/50 ML BAGP IV ONE (07:17)
[2016-12-02] MEDS: ceFAZolin 2 GM PREMIX 50 ML IV SCH ×2 (07:25→08:22)
--- NOTE | 2016-12-02 08:32 | PD.CARD.PN ---
Subjective Subjective Remarks no events Objective Medications Active Medications Albumin Human (Albumin 25% Inj) 12.5 gm STK-MED ONCE IV; Start 12/02/16 at 07:17 ; Stop 12/02/16 at 07:18; Status DC Calcium Chloride (Calcium Chloride Inj) 1 gm STK-MED ONCE .ROUTE; Start 12/02/16 at 07:16; Stop 12/02/16 at 07:17; Status DC Ferrous Sulfate (Ferrous Sulfate) 325 mg BID PO; Start 12/02/16 at 09:00; Status UNV Furosemide (Lasix Inj) 20 mg ONCE ONCE IV PUSH; Start 12/01/16 at 09:00; Stop at 09:11; Status DC Heparin Sodium (Porcine) (Heparin Inj) 10,000 units STK-MED ONCE .ROUTE; Start 12/02/16 at 06:23; Stop 12/02/16 at 06:24; Status DC Heparin Sodium (Porcine) (Heparin Inj) 10,000 units STK-MED ONCE .ROUTE; Start 12/02/16 at 07:15; Stop 12/02/16 at 07:16; Status DC Heparin Sodium (Porcine) (Heparin Inj) 40,000 units STK-MED ONCE .ROUTE; Start 12/02/16 at 06:24; Stop 12/02/16 at 06:25; Status DC Lactated Ringer's 1,000 ml @ 30 mls/hr Q24H IV; Start 12/02/16 at 02:45 Lactulose (Lactulose Liq) 30 ml DAILY PO Last administered on 12/01/16 08:39; Admin Dose 30 ML; Start 12/01/16 at 09:00 Mannitol (Mannitol Inj) 50 ml @ As Directed STK-MED ONCE .ROUTE; Start 12/02/16 at 07:16; Stop 12/02/16 at 07:17; Status DC Methylprednisolone Sodium Succinate (SoluMEDROL INJ) 125 mg STK-MED ONCE .ROUTE ; Start 12/02/16 at 06:24; Stop 12/02/16 at 06:25; Status DC Metoprolol Tartrate (Lopressor) 12.5 mg ONCE ONCE PO Last administered on 10:00; Admin Dose 12.5 MG; Start 12/01/16 at 09:00; Stop 12/01/16 at 09:11; Status DC Miscellaneous 1 ea 1 ea UNSCH PRN OTHER; Start 12/01/16 at 09:15 Multi-Ingred Electrol/Mineral Irrig 1,000 ml @ As Directed STK-MED ONCE .ROUTE ; Start 12/02/16 at 07:15; Stop 12/02/16 at 07:16; Status DC Potassium Chloride 2 meq 2 meq STK-MED ONCE .ROUTE; Start 12/02/16 at 07:16; Stop 12/02/16 at 07:17; Status DC Potassium Chloride (KCl Inj) 6 meq STK-MED ONCE .ROUTE; Start 12/02/16 at 07:16; Stop 12/02/16 at 07:17; Status DC Sodium Bicarbonate (Sodium Bicarbonate 8.4% Inj) 50 ml @ As Directed STK-MED ONCE .ROUTE; Start 12/02/16 at 07:15; Stop 12/02/16 at 07:16; Status DC Sodium Chloride (NS 500 ml Inj) 500 ml @ 30 mls/hr [id number] IV; Start 12/02/16 at 02:45; Stop 12/03/16 at 02:44 Vancomycin HCl 3000 mg 3,000 mg STK-MED ONCE .ROUTE; Start 12/02/16 at 06:24; Stop 12/02/16 at 06:25; Status DC Vital Signs / I&O Vital Signs Date Time Temp Pulse Resp B/P Pulse Ox O2 Delivery O2 Flow Rate FiO2 12/02/16 06:00 104/59 12/02/16 05:00 110/60 12/02/16 04:00 94/60 12/02/16 03:00 95/62 12/02/16 03:00 93 Nasal Cannula 3.00 12/02/16 03:00 98.2 65 16 128/60 93 12/02/16 03:00 64 12/02/16 02:00 86/52 12/02/16 01:00 86/54 12/02/16 00:00 97/63 12/01/16 23:00 68 12/01/16 23:00 98.6 68 18 102/47 93 12/01/16 23:00 87/60 12/01/16 23:00 94 Nasal Cannula 3.00 12/01/16 22:00 91/56 12/01/16 21:00 86/52 12/01/16 20:00 98/60 12/01/16 19:38 94 Nasal Cannula 3.00 12/01/16 19:10 94 Nasal Cannula 3.00 12/01/16 19:00 99.2 79 16 119/55 94 12/01/16 19:00 98/59 12/01/16 19:00 72 12/01/16 18:07 12/01/16 17:07 12/01/16 16:05 12/01/16 15:11 98.9 67 20 131/66 97 12/01/16 15:10 69 12/01/16 15:10 97 Nasal Cannula 5.00 12/01/16 15:08 12/01/16 14:05 12/01/16 13:08 12/01/16 12:00 94/112 12/01/16 11:00 76 12/01/16 11:00 99.8 76 20 131/66 92 12/01/16 11:00 96 Nasal Cannula 4.00 12/01/16 11:00 98/67 12/01/16 10:00 98/65 12/01/16 09:00 91/59 I/O 12/01/16 12/01/16 12/01/16 12/02/16 12/02/16 12/02/16 07:00 15:00 23:00 07:00 15:00 23:00 Intake Total 2302 ml 541 ml 845 ml Output Total 450 ml 2050 ml 550 ml Balance 1852 ml -1509 ml 295 ml Intake Oral 720 ml 400 ml 720 ml IV Total 1332 ml 141 ml 125 ml Packed Cells 250 ml Output Urine Total 450 ml 2050 ml 550 ml # Bowel Movements 1 3 0 Physical Exam CARDIOVASCULAR: Regular rate and rhythm without murmurs, gallops, or rubs. RESPIRATORY: Breath sounds equal bilaterally. No accessory muscle use. GASTROINTESTINAL: Abdomen soft, non-tender, nondistended. Laboratory Laboratory Tests Test 12/01/16 12/01/16 12/02/16 12:46 20:38 03:55 Activated Partial 38.0 SEC 43.6 SEC 44.5 SEC Thromboplast Time White Blood Count 2.9 TH/MM3 Red Blood Count 2.84 MIL/MM3 Hemoglobin 8.9 GM/DL Hematocrit 26.5 % Mean Corpuscular Volume 93.3 FL Mean Corpuscular Hemoglobin 31.3 PG Mean Corpuscular Hemoglobin 33.5 % Concent Red Cell Distribution Width 19.5 % Platelet Count 128 TH/MM3 Mean Platelet Volume 9.6 FL Neutrophils (%) (Auto) % Lymphocytes (%) (Auto) % Monocytes (%) (Auto) % Eosinophils (%) (Auto) % Basophils (%) (Auto) % Neutrophils # (Auto) TH/MM3 Lymphocytes # (Auto) TH/MM3 Monocytes # (Auto) TH/MM3 Eosinophils # (Auto) TH/MM3 Basophils # (Auto) TH/MM3 CBC Comment AUTO DIFF Differential Total Cells 100 Counted Neutrophils % (Manual) 19 % Lymphocytes % 68 % Monocytes % 11 % Eosinophils % 1 % Basophils % 1 % Neutrophils # (Manual) 0.6 TH/MM3 Nucleated Red Blood Cells 2 /100 WBC Differential Comment FINAL DIFF MANUAL Platelet Estimate LOW Platelet Morphology Comment ENLARGED Keratocytes OCC Sodium Level 142 MEQ/L Potassium Level 3.8 MEQ/L Chloride Level 112 MEQ/L Carbon Dioxide Level 21.2 MEQ/L Anion Gap 9 MEQ/L Blood Urea Nitrogen 19 MG/DL Creatinine 0.84 MG/DL Estimat Glomerular Filtration 93 ML/MIN Rate Random Glucose 92 MG/DL Calcium Level 7.9 MG/DL Total Bilirubin 0.6 MG/DL Aspartate Amino Transf 13 U/L (AST/SGOT) Alanine Aminotransferase 64 U/L (ALT/SGPT) Alkaline Phosphatase 93 U/L Total Protein 6.1 GM/DL Albumin 2.9 GM/DL Assessment and Plan Problem List: (1) Chest pain (2) Abnormal EKG (3) STEMI (ST elevation myocardial infarction) (4) Profound anemia (5) Leukopenia (6) Ileus Assessment and Plan CAD - LM + multivessel CAD. CABG today Problem Qualifiers (1) Chest pain: Qualified Code: R07.9 - Chest pain, unspecified type (2) Profound anemia: Qualified Code: D64.9 - Anemia, unspecified type Alan Almonte MD Dec 02, 2016 08:32
[2016-12-02] MEDS: POLYETHYLENE GLYCOL 17 GM PKG PO SCH (09:00)
[2016-12-02] MEDS: DOCUSATE SODIUM 100 MG CAP PO SCH ×2 (09:00→21:00)
[2016-12-02] MEDS: PANTOPRAZOLE SODIUM 40 MG VIAL IV SCH (09:00)
[2016-12-02] MEDS: FERROUS SULFATE 325 MG (65 MG ELEMENTAL IRON) TAB PO SCH ×2 (09:00→20:20)
[2016-12-02] MEDS: SENNOSIDES 8.6 MG TAB PO SCH ×2 (10:45→22:45)
[2016-12-02] MEDS ORDERED: LACTATED RINGER'S 1000 ML INJ 500 ML IV PRN (10:49)
[2016-12-02] MEDS ORDERED: Post-op Orders (for Pharmacy) MISC OTHER ONE (11:00)
[2016-12-02] MEDS ORDERED: CALCIUM CHLORIDE 10% 1 GRAM/10 ML VIAL IV PRN (11:00)
[2016-12-02] MEDS ORDERED: MAGNESIUM SULFATE INJ 2 GM in SODIUM CHLORIDE 0.9% INJ 100 ML IV PRN ×4 (11:00)
[2016-12-02] MEDS ORDERED: SODIUM CHLORIDE 0.9% FLUSH 5 ML FLUSH IV FLUSH PRN (11:00)
[2016-12-02] MEDS ORDERED: ACETAMINOPHEN 325 MG TAB PO PRN (11:00)
[2016-12-02] MEDS ORDERED: hydrALAZINE HCL 20 MG/ML VIAL IV PRN (11:00)
[2016-12-02] MEDS ORDERED: POTASSIUM CHLORIDE 20 MEQ CONTROLLED RELEASE TAB PO PRN ×2 (11:00)
[2016-12-02] MEDS ORDERED: INSULIN REGULAR (IV INFUSION) 100 UNITS in SODIUM CHLORIDE 0.9% INJ 99 ML IV SCH (11:00)
[2016-12-02] MEDS ORDERED: ACETAMINOPHEN 650 MG SUPP RECTAL PRN (11:00)
[2016-12-02] MEDS ORDERED: ONDANSETRON HCL 4 MG/2 ML VIAL IV PUSH PRN (11:00)
[2016-12-02] MEDS ORDERED: DEXTROSE 50% IN WATER 50 ML VIAL(D50) IV PUSH PRN (11:00)
[2016-12-02] MEDS ORDERED: METOPROLOL TARTRATE 5 MG/5 ML VIAL IV PUSH PRN (11:00)
[2016-12-02] MEDS ORDERED: POTASSIUM CHLOR 20 MEQ PREMIX 100 ML IV PRN ×3 (11:00)
[2016-12-02] MEDS ORDERED: CLEVIDIPINE INJ 50 ML IV SCH (11:00)
--- NOTE | 2016-12-02 11:01 | PD.OP ---
cc: Nuris Maher MD; Alan Almonte MD Operative Report Date of Surgery: Dec 02, 2016 Preoperative Diagnosis: (1) STEMI (ST elevation myocardial infarction) (2) Profound anemia (3) CAD (coronary artery disease) Postoperative Diagnosis: same Procedure: Urgent CABG x 3 LAWS to LAD SVG to L PDA SVG to OM1 EVH SIMÓN Anesthesia: Dr. Acosta Surgeon: Nuris Maher Booking Supervisor(s): Enmanuel Luu Operation and Findings: The risks, benefits, complications, treatment options, and expected outcomes were discussed with the patient. The possibilities of reaction to medication, pulmonary aspiration, perforation of viscus, bleeding, recurrent infection, the need for additional procedures, failure to diagnose a condition, and creating a complication requiring transfusion or operation were discussed with the patient. The patient concurred with the proposed plan, giving informed consent. The site of surgery properly noted/marked. The patient was taken to Operating Room, identified as Norberto Khanna and the procedure verified as CABG, EVH, SIMÓN. A Time Out was held and the above information confirmed. Standard monitoring lines and House catheter were placed. General anesthesia was induced. The patient was prepped and draped in a sterile fashion. A median sternotomy was performed and electrocautery was used to obtain hemostasis. The left internal mammary artery was procured as a pedicle from the 7th rib to the 1st rib in the usual manner. Simultaneously left greater saphenous vein was procured from the left leg using a minimally invasive endoscopic technique. The vein was prepared for anastomosis and the leg wound was irrigated and closed in 2 layers. The pericardium was opened and a pericardial sling was created using interrupted 0 silk sutures. The patient was heparinized for cardiopulmonary bypass and the distal mammary pedicle was instrumented for anastomosis. The heart was instrumented for cardiopulmonary bypass in the usual manner. Antegrade blood cardioplegia was employed. The patient was placed on cardiopulmonary bypass. An aortic cross-clamp was applied and the heart was arrested using cold blood cardioplegia. Antegrade cardioplegia was administered after he each anastomosis. After adequate arrest, the distal right coronary circulation was investigated and the left PDA was opened with a Brewster blade and found to be a 1.5 millimeter good target. Saphenous vein was approximated to the left PDA artery using a running 7 0 Prolene suture. The graft was measured for length and orientation and the proximal anastomosis was constructed to the ascending aorta using a running 5 0 Prolene suture after creating an aortotomy with a 5 millimeter punch. The 1st circumflex marginal artery was then opened with a Brewster blade and found to be a 1.5 millimeter good target. Saphenous vein was approximated to the OM1 artery using a running 7 0 Prolene suture. The graft was measured for length and orientation and was suspended from the pericardium. The distal LAD was opened with a Brewster blade and found to be a 1.5 millimeter good target. The left internal mammary artery was approximated to the LAD using a running 7 0 Prolene suture. The pedicle was attached to the epicardium using interrupted 5 0 silk suture. The patient was systemically rewarmed and received a hotshot dose of warm blood cardioplegia. The aorta was vented and the proximal anastomosis to the OM1 graft was accomplished using a running 5 0 Prolene suture after creating an aortotomy was a 5 millimeter punch. The cross -clamp was removed and all proximal and distal anastomoses were examined for hemostasis. The IABP was set to an internal rate of 50 during the crossclamp period and back to 1:1 once a rhythm was established. The patient was weaned from cardiopulmonary bypass. Protamine was given. There was no adverse reaction. Decannulation was carried out without incident. Wound was checked for hemostasis which was obtained using electrocautery. A 36 Spanish mediastinal and 32 Spanish left pleural chest was were placed and secured to the skin with 0 silk suture. The sternum was closed with stainless steel wire. The fascia was closed with 1. PDS. The subcutaneous tissue was closed using a running 2-0 Vicryl suture. The skin was closed with 4-0 Monocryl. Sterile dressings were placed. At the end of the operation, all sponge, instruments, and needle counts were correct. The patient was transferred to the CVICU in stable condition. Findings: Possible dissection flap encountered in the proximal descending aorta on SIMÓN. Good distal targets XC: 54 min CPB: 66 min Drains: mediastinal x 1 pleural x 1 Complications: none Disposition: to CVICU with IABP stable Nuris Maher MD Dec 02, 2016 11:01
[2016-12-02] MEDS ORDERED: NORMOSOL R INJ 2,000 ML IV ONE (11:27)
[2016-12-02] MEDS ORDERED: PROTAMINE SULFATE 250 MG/25 ML VIAL IV ONE ×2 (11:27→14:49)
[2016-12-02] MEDS: ACETAMINOPHEN 1000 MG/100 ML VIAL IV SCH ×2 (12:00→17:37)
[2016-12-02] MEDS ORDERED: MIDAZOLAM HCL 5 MG/5 ML VIAL ONE (12:16)
[2016-12-02] MEDS ORDERED: fentaNYL CITRATE 1000 MCG/20 ML VIAL ONE (12:17)
[2016-12-02] MEDS: CALCIUM CHLORIDE INJ 1 GM in SODIUM CHLORIDE 0.9% INJ 100 ML IV PRN ×2 (12:44→21:13)
[2016-12-02] MEDS: AMIODARONE 200 MG TAB PO SCH ×2 (13:40→22:00)
--- NOTE | 2016-12-02 13:50 | PD.ONC.PN ---
Subjective Subjective Remarks Afebrile overnight. Pt intubated and mechanicaly ventilated s/p CABG this am. Per RN they have had difficulty weaning his O2. He has also been hypotensive with systolic in the 80's and is receiving fluids and dopamine. Objective Data Date Time Temp Pulse Resp B/P Pulse Ox O2 Delivery O2 Flow Rate FiO2 12/02/16 13:19 97.3 12/02/16 13:12 12/02/16 12:38 92 12/02/16 12:37 94 Mechanical Ventilator 100 12/02/16 12:28 /0 12/02/16 12:19 97.3 92 16 90/67 91 12/02/16 12:15 100 12/02/16 11:52 96.0 12/02/16 11:30 88 80 12/02/16 06:00 104/59 12/02/16 05:00 110/60 12/02/16 04:00 94/60 12/02/16 03:00 95/62 12/02/16 03:00 93 Nasal Cannula 3.00 12/02/16 03:00 98.2 65 16 128/60 93 12/02/16 03:00 64 12/02/16 02:00 86/52 12/02/16 01:00 86/54 12/02/16 00:00 97/63 12/01/16 23:00 68 12/01/16 23:00 98.6 68 18 102/47 93 12/01/16 23:00 87/60 12/01/16 23:00 94 Nasal Cannula 3.00 12/01/16 22:00 91/56 12/01/16 21:00 86/52 12/01/16 20:00 98/60 12/01/16 19:38 94 Nasal Cannula 3.00 12/01/16 19:10 94 Nasal Cannula 3.00 12/01/16 19:00 99.2 79 16 119/55 94 12/01/16 19:00 98/59 12/01/16 19:00 72 12/01/16 18:07 12/01/16 17:07 12/01/16 16:05 12/01/16 15:11 98.9 67 20 131/66 97 12/01/16 15:10 69 12/01/16 15:10 97 Nasal Cannula 5.00 12/01/16 15:08 12/01/16 14:05 12/02/16 12/02/16 12/02/16 07:00 15:00 23:00 Intake Total 845 ml Output Total 550 ml Balance 295 ml Result Diagram: 12/02/16 0355 12/02/16 0355 Laboratory Results Laboratory Tests Test 12/01/16 12/02/16 20:38 03:55 Activated Partial 43.6 SEC 44.5 SEC Thromboplast Time White Blood Count 2.9 TH/MM3 Red Blood Count 2.84 MIL/MM3 Hemoglobin 8.9 GM/DL Hematocrit 26.5 % Mean Corpuscular Volume 93.3 FL Mean Corpuscular Hemoglobin 31.3 PG Mean Corpuscular Hemoglobin 33.5 % Concent Red Cell Distribution Width 19.5 % Platelet Count 128 TH/MM3 Mean Platelet Volume 9.6 FL Neutrophils (%) (Auto) % Lymphocytes (%) (Auto) % Monocytes (%) (Auto) % Eosinophils (%) (Auto) % Basophils (%) (Auto) % Neutrophils # (Auto) TH/MM3 Lymphocytes # (Auto) TH/MM3 Monocytes # (Auto) TH/MM3 Eosinophils # (Auto) TH/MM3 Basophils # (Auto) TH/MM3 CBC Comment AUTO DIFF Differential Total Cells 100 Counted Neutrophils % (Manual) 19 % Lymphocytes % 68 % Monocytes % 11 % Eosinophils % 1 % Basophils % 1 % Neutrophils # (Manual) 0.6 TH/MM3 Nucleated Red Blood Cells 2 /100 WBC Differential Comment FINAL DIFF MANUAL Platelet Estimate LOW Platelet Morphology Comment ENLARGED Keratocytes OCC Sodium Level 142 MEQ/L Potassium Level 3.8 MEQ/L Chloride Level 112 MEQ/L Carbon Dioxide Level 21.2 MEQ/L Anion Gap 9 MEQ/L Blood Urea Nitrogen 19 MG/DL Creatinine 0.84 MG/DL Estimat Glomerular Filtration 93 ML/MIN Rate Random Glucose 92 MG/DL Calcium Level 7.9 MG/DL Total Bilirubin 0.6 MG/DL Aspartate Amino Transf 13 U/L (AST/SGOT) Alanine Aminotransferase 64 U/L (ALT/SGPT) Alkaline Phosphatase 93 U/L Total Protein 6.1 GM/DL Albumin 2.9 GM/DL Administered Medications Medications (Trade) Dose Ordered Sig/Luis Route PRN Reason Start Time Stop Time Status Last Admin Dose Admin Heparin Sodium/ Dextrose (Heparin-D5W Inj) 250 ml @ 0 mls/hr TITRATE IV 11/28/16 10:00 12/01/16 14:17 Acetaminophen/ Hydrocodone Bitart (Nisula 5-325 Mg) 1 tab Q4H PRN PO PAIN SCALE 1 TO 5 11/28/16 10:45 12/01/16 20:32 Pantoprazole Sodium (Protonix Inj) 40 mg DAILY IV 11/29/16 09:00 12/01/16 08:39 Docusate Sodium (Colace) 100 mg BID PO 11/28/16 21:00 12/01/16 20:32 Chlorhexidine Gluconate (Chlorhexidine 2% Cloth) 3 pack Taper DAILY@04 TOP 11/29/16 04:00 11/25/17 03:59 12/02/16 02:56 Simethicone (Mylicon Chew) 80 mg Q6HR PRN CHEW flatulence 11/29/16 09:45 11/29/16 10:08 Sennosides (Senokot) 17.2 mg Q12H PO 11/30/16 10:45 12/01/16 20:32 Polyethylene Glycol (Miralax) 17 gm DAILY PO 11/30/16 09:15 12/01/16 08:39 Acetaminophen 1000 mg 1,000 mg Q6H IV 12/02/16 12:00 12/03/16 06:01 12/02/16 12:00 Calcium Chloride/ Sodium Chloride (Calcium Chloride Inj/NS Inj) 110 ml @ 100 mls/hr UNSCH PRN IV SEE LABEL COMMENTS 12/02/16 11:00 12/02/16 12:44 Objective Remarks GENERAL: Older male, lying in bed on ventilator. SKIN: Warm and dry. HEAD: Normocephalic. NECK: Supple, trachea midline. CARDIOVASCULAR: Vertical sternotomy dressing dry and intact. Chest tubes to drainage system. Per RN he has had a moderate amt of output. Balloon pump remains in place. RESPIRATORY: Lungs clear anteriorly. GASTROINTESTINAL: Abdomen soft, non-tender, nondistended. EXTREMITIES: No edema. NEUROLOGICAL: Difficult to assess. Pt sedated, intubated s/p CABG this am. Assessment/Plan Problem List: (1) Leukopenia Status: Acute Plan: -- Overall remains leukopenic. -- Immunoglobulins WNL -- Protein electropheresis WNL. -- Peripheral flow cytometry pending (2) Profound anemia Status: Chronic Plan: -- EGD on 12/01 which showed Schatzki's ring and hiatal hernia. Hiatal hernia may contribute to anemia but usually this would be microcytic. -- Transfuse for Hgb less than 8. -- Hemolysis unlikely; haptoglobin slightly elevated, bili normal today. -- Daily CBC -- Hepatitis panel negative (3) STEMI (ST elevation myocardial infarction) Status: Acute Plan: -- Had CABG today -- Currently on a balloon pump Assessment 61 y/o male with acute STEMI presents to the ER via [facility]. Plan 1. CABG today 2. Await results of peripheral flow cytometry; remains leukopenic, anemic. 3. Transfuse for hgb less than 8. 4. Supportive care. Problem Qualifiers (1) Profound anemia: Qualified Code: D64.9 - Anemia, unspecified type Melissa Inman Dec 02, 2016 13:50
--- NOTE | 2016-12-02 14:24 | RADRPT ---
EXAM DATE/TIME: 12/02/2016 11:58 [facility] COMPARISON: CHEST SINGLE AP, November 29, 2016, 10:56. INDICATIONS : Status post coronary artery bypass graft surgery. MEDICAL HISTORY : None. SURGICAL HISTORY : Fusion, cervical. ENCOUNTER: Initial ACUITY: 4 - 6 days PAIN SCORE: Non-responsive. LOCATION: chest FINDINGS: ET tube, mediastinal drain, central venous catheter and chest drain are in good position. The heart is minimally enlarged. Very mild interstitial edema is present. There is no pneumothorax. CONCLUSION: 1. Mild interstitial edema. 2. Support apparatus in good position. Maicol Mccloud MD FACR on December 02, 2016 at 12:43 Board Certified Radiologist. This report was verified electronically.
[2016-12-02] MEDS ORDERED: AMIODARONE HCL 150 MG/3 ML VIAL IV ONE (14:38)
[2016-12-02] MEDS ORDERED: AMINOCAPROIC ACID INJ 250 MG/ML 20 ML VIAL IV ONE (14:38)
[2016-12-02] MEDS ORDERED: DOPamine INJ PREMIX 500 ML IV ONE (14:45)
[2016-12-02] MEDS ORDERED: HEPARIN SODIUM - SQ 10,000 UNITS/ML VIAL SQ ONE (14:46)
[2016-12-02] MEDS ORDERED: MAGNESIUM SULFATE 1000 MG/2 ML VIAL (PED) IV ONE (14:47)
[2016-12-02] MEDS ORDERED: LIDOCAINE HCL 1% 30 ML VIAL OTHER ONE (14:47)
[2016-12-02] MEDS ORDERED: NITROGLYCERIN 50 MG/DEXTROSE 5% SOLN 250 ML BTL IV ONE (14:48)
[2016-12-02] MEDS ORDERED: PHENYLEPHRINE HCL 10 MG/ML VIAL IV ONE (14:48)
[2016-12-02] MEDS ORDERED: VECURONIUM BROMIDE 10 MG VIAL IV ONE (14:49)
[2016-12-02] MEDS ORDERED: DEXMEDETOMIDINE INJ 50 ML IV ONE (14:51)
[2016-12-02] MEDS ORDERED: RESP: ALBUTEROL 2.5 MG/IPRATROPIUM 0.5 MG NEB (PRN) NEB (15:45)
[2016-12-02] MEDS ORDERED: RESP: RACEPINEPHRINE 2.25% 0.5 ML NEB NEB PRN (15:45)
[2016-12-02] MEDS ORDERED: FUROSEMIDE 40 MG/4 ML VIAL ONE (15:59)
[2016-12-02] MEDS: RESP: ALBUTEROL 2.5 MG/IPRATROPIUM 0.5 MG NEB (SCH) NEB (16:13)
[2016-12-02] MEDS ORDERED: PROPOFOL 1000 MG/100 ML INJ 100 ML ONE (16:46)
--- NOTE | 2016-12-02 16:57 | HHI.CCPN ---
Subjective Remarks/Hospital Course 61 yo male.. DOA 11/28/16. PMH LBP, tobaccoism, colon polyps, R ing hernia repair x2, C -spine x2 and occ ETOH ([place]) presents to ED with ongoing "burning " CP present for several weeks exacerbated today. At rest. Received NTG some relief. EKG changes, STT - inf and lat leads. Takes ASA daily since bro from "his aorta" Hgb low ~ 3. Brown stools acc to pt. Hx colon polys - benign 2 years ago w/VACath lab Cath - EF 35%; 90% LMain, 30% prox LAD, 95% mid LAD, 80% Cx, 20% OM1, 100% RCA. IABP placed augmented ~110. Currently CP free on 5L NC 11/29: Afebrile. Continues on IABP at 1:1. Transfuse to total 4 PRBCs since admission. Last bowel movement on Monday?. Some abdominal distention and copious gas and bowel and x-ray. Enemas provided. 2/1: Afebrile. Resting in bed. Passing flatulence. Small smear for bowel movement. Complaining of abdominal distention. 2/2: Resting in bed comfortably. IABP in place, awaiting CABG scheduled for tomorrow. Subjective 2/3 : Status post CABG 3 today. Extubated today but reintubated due to respiratory distress. Imaging chest and ABG currently pending. Currently on dopamine and norepinephrine for vasopressors. Cardio thoracic surgery aware. Objective Vital Signs Date Time Temp Pulse Resp B/P Pulse Ox O2 Delivery O2 Flow Rate FiO2 12/02/16 16:13 94 Non-Rebreather 15.00 12/02/16 15:34 97.9 12/02/16 15:24 113 22 80/51 12/02/16 15:23 90 Intake and Output 12/01/16 12/01/16 12/02/16 08:00 16:00 00:00 Intake Total 2302 ml 541 ml Output Total 450 ml 2050 ml Balance 1852 ml -1509 ml Result Diagram: 12/02/16 0355 12/02/16 0355 Imaging Last Impressions Chest X-Ray 11/29/16 0000 Signed Impressions: Service Date/Time: Tuesday, November 29, 2016 10:56 - CONCLUSION: Mild improving pulmonary edema. Pedrito Gregg MD Abdomen/Pelvis CT 11/29/16 0000 Signed Impressions: Service Date/Time: Tuesday, November 29, 2016 17:22 - CONCLUSION: No evidence of retroperitoneal hemorrhage or etiology for anemia is identified. There is air lucency within the descending aorta I suspect is artifactual but I cannot confirm any definite metal. Bowel gas pattern is unremarkable. Diverticulosis without evidence of diverticulitis. Alan Gabriel MD Abdomen X-Ray 11/29/16 0000 Signed Impressions: Service Date/Time: Tuesday, November 29, 2016 10:38 - CONCLUSION: No significant change in the overall bowel gas pattern compared to the prior study. Pedrito Gregg MD Lower Extremity Ultrasound 11/28/16 0000 Signed Impressions: Service Date/Time: Monday, November 28, 2016 13:27 - CONCLUSION: 1. Venous mapping as above Abiel Barrow MD Carotid Artery Ultrasound 11/28/16 0000 Signed Impressions: Service Date/Time: Monday, November 28, 2016 12:41 - CONCLUSION: Negative examination for a hemodynamically significant carotid stenosis. Maicol Mccloud MD Abdomen Ultrasound 11/28/16 0000 Signed Impressions: Service Date/Time: Monday, November 28, 2016 12:18 - CONCLUSION: Negative for intrahepatic ductal dilatation. Negative for hydronephrosis. Maicol Mccloud MD FACR Objective Remarks GENERAL: 61 yo male laying in bed w/ IABP NAD SKIN: PAle and dry. No rash HEAD: Atraumatic. Normocephalic. EYES: Pupils equal and round 3 m b/l and rx. No scleral icterus. No injection or drainage. ENT: No nasal bleeding or discharge. Mucous membranes pink and moist. NECK: Trachea midline. No JVD. CARDIOVASCULAR: Regular rate and rhythm. S1, S2. IABP augmentation RESPIRATORY: No accessory muscle use. Clear to auscultation. Breath sounds equal bilaterally. GASTROINTESTINAL: Abdomen slightly distended.. Normal bowel sounds without. + MUSCULOSKELETAL: Extremities without significant edema. No obvious deformities. IABP in R groin C/D/I NEUROLOGICAL: Awake and alert. No obvious cranial nerve deficits. Motor grossly within normal limits. Five out of 5 muscle strength in the arms and legs. Normal speech. PSYCHIATRIC: Appropriate mood and affect; insight and judgment normal. A/P Assessment and Plan Neuro/Psych: ETOH Propofol/fentanyl drips for sedation/analgesia while intubated Goal RASS -2 Daily sedation vacation Acetominophen for pain [place]/MSO4 for pn management Thiamine, folic/MVI daily CV Postop day #0 CABG x 3 LAWS to LAD SVG to L PDA SVG to OM1 with EVH and SIMÓN 3V CAD CG shock Elevated troponin Cath -EF 35%. Lmain 90%, prox LAD 30%, midLAD 95%, Cx 80%, OM1 20%, RCA 100% IABP 1:1 augmented ~ 110 CTS following. Scheduled for CABG for tomorrow. Cholesterol actually 80. Echo revealed EF 30-35%. Mild AR, MR and TR. RENATE 41 mmHg. Amiodarone 400 mg every 8 hours On dopamine at 5 mcg/kg per minute and Levophed at 20 mcg/kg per minute to maintain map Pulm Respiratory failure/acute Tobacco PRVC 14/500/1/5/100 Ventilator bundle Bronchodilator therapy every 6 hours and as needed Daily sedation vacation Tob cessation encouraged CXR - B/L inf/effusions/CM CT and pelvis revealed small bilateral pleural effusion/right lower lobe atelectasis Follow-up post intubation chest x-ray/ABG Mediastinal/pleural chest tube -20 cm water. 200 cc SS GI Elevated transaminases Question early ileus Constipation Schatzki ring Hiatal hernia GI s/p upper GI 2/1- Schatzki ring, Hiatal hernia on PPI Protonix daily, GI has signed off Colace/Senna/MiraLAX/BM regimen Received Relistor, enema for colonic ileus. Tube feeds held currently nothing by mouth Hepatitis negative Negative AMA, ASMA, OLEG No ductal dilatation liver ultrasound CT abdomen/pelvis revealed nonspecific bowel gas pattern. House accurate I/O's in critical ill pt Heme Macro Anemia Neutrophilia Leukopenia Low plts Tx 7U PRBC total B12 and TSH normal. Folate actually slightly elevated. Peripheral smear revealed macrocytic anemia and absolute neutrophilia. Heme c/s Peripheral flow cytometry pending Reticulocyte count normal at 1.7. Absolute check slightly low at 17.5. Note reticulocyte count this was drawn off yesterday's labs prior to blood transfusion. Check SPEP, HIV status Normal IgA/G/M Haptoglobin slightly elevated 207. LDH elevated Iron sulfate 325 twice a day ID Monitor for infection Postoperative antibiotics per CT surgery. Ancef 1 g every 6 8 hours times for dosages Renal KHALIF Creatinine slowly normalizing Renal ultrasound revealed no hydronephrosis Recx BMP in AM IV fluids per CT surgery MSK Bedrest with balloon pump FEN: Replace electrolytes as clinically indicated ENDO: Sliding scale insulin/insulin drip per CT surgery to maintain euglycemia Access Left subclavian Cordis with dual-lumen day 1 Right radial arterial line day #1 Proph GI- Protonix DVT - heparin Critical Care: The total critical care time was 45 minutes. Time to perform other separately billable procedures was not included in the critical care time. Shailesh Skelton MD Dec 02, 2016 16:57
[2016-12-02] MEDS ORDERED: fentaNYL DRIP 250 ML IV SCH (17:00)
[2016-12-02] MEDS ORDERED: FUROSEMIDE 40 MG/4 ML VIAL IV PUSH PRN (17:00)
[2016-12-02] MEDS ORDERED: SUCCINYLCHOLINE CHLORIDE 200 MG/10 ML VIAL ONE (17:02)
--- NOTE | 2016-12-02 17:54 | PD.PROCEDR ---
Procedure Note Procedure After the risks and benefits were discussed the following procedure was performed: INTUBATION: The patient was put in optimal position for the procedure. Rapid sequence intubation was initiated by me using 20 milligrams of etomidate IV and 50 milligrams of succinylcholine IV. Direct laryngoscopy with Mac 4 blade grade 1 view. The patient was intubated with a 8.0 cuffed endotracheal tube. Tube placement was confirmed by visualization of the tube and balloon passing through the cords, capnometry and subsequent chest x-ray. Breath sounds were equal and well aerated bilaterally postintubation. No breath sounds over stomach. Patient tolerated procedure well. Douglas Laurent MD Dec 02, 2016 17:54
[2016-12-02] MEDS ORDERED: SUCCINYLCHOLINE CHLORIDE 200 MG/10 ML VIAL IV ONE (18:00)
[2016-12-02] MEDS ORDERED: ETOMIDATE 20 MG/10 ML VIAL IV PUSH ONE (18:00)
--- NOTE | 2016-12-02 18:00 | RADRPT ---
EXAM DATE/TIME: 12/02/2016 16:51 This report includes an Addendum and supersedes previous reports for this exam. [facility] COMPARISON: CHEST SINGLE AP, December 02, 2016, 11:58. INDICATIONS : Evaluate heart and lungs post intubation. MEDICAL HISTORY : Hypertension. SURGICAL HISTORY : Bypass ENCOUNTER: Initial ACUITY: 1 day PAIN SCORE: Non-responsive. LOCATION: chest FINDINGS: Single AP view of the chest. Endotracheal tube, nasogastric tube, left subclavian central venous cath eter, left-sided chest tube remain in place. Mediastinal drain in place. Endotracheal tube tip is in the right mainstem bronchus. Increased hazy opacity in the left lung. Mild patchy right lung opacity. CONCLUSION: 1. Endotracheal tube tip in the right mainstem bronchus. It could be retracted several centimeters. F inding was discussed with the patient's nurse. 2. Increased diffuse hazy opacity in the left lung. May represent layering pleural effusion, atelecta sis, or asymmetric pulmonary edema. Nasim Russell MD on December 02, 2016 at 17:56 Board Certified Radiologist. This report was verified electronically. ADDENDUM: Cardiac silhouette is slightly more prominent than on the comparison study but may be related to rota tion of the patient. Nasim Russell MD on December 02, 2016 at 18:00 Board Certified Radiologist. This report was verified electronically.
[2016-12-02] MEDS ORDERED: TERBUTALINE INJ 1 MG/ML AMP SQ PRN (18:30)
[2016-12-02] MEDS ORDERED: CLOPIDOGREL 75 MG TAB ONE (19:18)
[2016-12-02] MEDS: CHLORHEXIDINE 0.12% (ORAL KIT) 15 ML CUP MT SCH (20:00)
--- NOTE | 2016-12-02 20:03 | RADRPT ---
EXAM DATE/TIME: 12/02/2016 19:13 [facility] COMPARISON: CHEST SINGLE AP, December 02, 2016, 16:51. INDICATIONS : Evaluate ET tube placement MEDICAL HISTORY : Hypertension. SURGICAL HISTORY : None. ENCOUNTER: Initial ACUITY: 1 day PAIN SCORE: Non-responsive. LOCATION: Bilateral chest FINDINGS: ET tube is present with tip overlapping approximately 2 cm above the skyler. NG tube is present with tip in the stomach. Chest tube is present on the left side. Left subclavian line is present with tip overlapping the expected region of the SVC. Left pleural effusion and diffuse bilateral pleural edema have not changed. Bibasilar consolidation is not excluded. CONCLUSION: The ET tube has been pulled back, otherwise not significantly changed. Bessy Esquivel MD on December 02, 2016 at 20:00 Board Certified Radiologist. This report was verified electronically.
[2016-12-02] MEDS ORDERED: [UNRECOGNIZED DRUG - MIXTURE] IV ONE (21:00)
[2016-12-02] MEDS: SODIUM CHLORIDE 0.9% FLUSH 5 ML FLUSH IV FLUSH SCH (21:00)
[2016-12-02] MEDS: NOREPINEPHRINE-DEXTROSE DRIP 250 ML IV SCH (21:26)
[2016-12-03] VITALS (18 sets, daily range): BP systolic 101–159; BP diastolic 52–63; PULSE 82–103; RESP 14–24; TEMP 97–100.8; O2SAT 89–99
[2016-12-03] MEDS: PROPOFOL 1000 MG/100 ML INJ 100 ML IV SCH ×3 (02:21→23:59)
[2016-12-03] MEDS: LACTATED RINGER'S 1000 ML IV SCH (02:45)
[2016-12-03] MEDS ORDERED: LACTATED RINGER'S 1000 ML INJ 250 ML IV SCH (04:00)
[2016-12-03] MEDS: CHLORHEXIDINE GLUCONATE 2 % 1 PACK (2 CLOTHS) TOP SCH (04:00)
[2016-12-03] MEDS ORDERED: FUROSEMIDE 40 MG/4 ML VIAL IV PUSH SCH (04:20)
[2016-12-03 04:41] LABS: HEMATOCRIT 24.2 % (39.0-51.0); MEAN CORPUSCULAR HEMOGLOBIN 30.3 PG (27.0-34.0); MEAN CORPUSCULAR HGB CONC 34.4 % (32.0-36.0); RED BLOOD COUNT 2.75 MIL/MM3 (4.50-5.90); RED CELL DISTRIBUTION WIDTH 16.7 % (11.6-17.2); WHITE BLOOD COUNT 3.2 TH/MM3 (4.0-11.0)
[2016-12-03] MEDS: RESP: ALBUTEROL 2.5 MG/IPRATROPIUM 0.5 MG NEB (SCH) NEB ×4 (04:42→21:01)
[2016-12-03 04:48] LABS: BICARBONATE 25.5 MEQ/L (21.0-32.0); MAGNESIUM 2.4 MG/DL (1.5-2.5); POTASSIUM 4.3 MEQ/L (3.5-5.1)
--- NOTE | 2016-12-03 05:31 | PD.CAR.PN ---
CVT Progress Note CVT: POD #: 1 Subjective/Hospital Course: 61 yo male.. DOA 11/28/16. PMH LBP, tobaccoism, colon polyps, R ing hernia repair x2, C -spine x2 and occ ETOH ([place]) presents to ED with ongoing "burning " CP present for several weeks exacerbated today. At rest. Received NTG some relief. EKG changes, STT - inf and lat leads. Takes ASA daily since bro from "his aorta" Hgb low ~ 3. Brown stools acc to pt. Hx colon polys - benign 2 years ago w/VACath lab/ STEMI , HGB 3.7 / HCT 10.9 WBC 1.7 Cath - EF 35%; 90% LMain, 30% prox LAD, 95% mid LAD, 80% Cx, 20% OM1, 100% RCA. IABP placed augmented ~110. Currently CP free on 5L NC GI consulted , Hematology consulted 11/29 s/p 5 units PRBC infused Abd KUB noted , + ileus / large amount of stool for enemas today, CT abd and pelvis pending augmenting 1:1 augmentation pressure 107 on Heparin gtt, await eval by hematology to r/o malignancy, bone marrow suppression prior to scheduling of CABG 11/30 appreciate hematology input, MDS vs leukemia workup still pending ? timing for bone marrow bx still has IABP 1:1 augmenting 104 + distal pulses abdomen less distended/ small BM after enemas yesterday for upper GI today will need clearance from Hematology for surgery 2/ HGB stable, on heparin gtt stable for surgery in am will need Bone marrow BX post surgery at some point IABP1:1 12/03/16 Patient experienced respiratory failure yesterday afternoon with hypoxia and increased work of breathing leading to hemodynamic compromise and reintubation. He was then hypotensive on levophed and dopamine with propofol sedation in the setting of a low EF. He also experienced some increased chest tube drainage which has subsided after factor replacement. He has an underlying pancytopenia which has not been adequately evaluated at this time, but was critical from the recent [place]. Overnight, he has improved steadily with oliguria being the only issue currently. Objective: Vital Signs Date Time Temp Pulse Resp B/P Pulse Ox O2 Delivery O2 Flow Rate FiO2 12/03/16 03:12 99 65 12/03/16 03:00 97.3 87 17 110/59 98 12/03/16 03:00 98 Mechanical Ventilator 65 12/03/16 03:00 81/62 12/03/16 03:00 89 12/03/16 02:00 86/61 12/03/16 01:00 92/55 12/03/16 00:15 97.0 12/03/16 00:00 79/57 12/03/16 00:00 65 12/02/16 23:29 98 65 12/02/16 23:00 71/55 12/02/16 23:00 97.5 98 16 126/63 98 12/02/16 23:00 98 Mechanical Ventilator 65 12/02/16 23:00 99 12/02/16 22:10 97.0 12/02/16 22:00 71/55 12/02/16 21:00 74/57 12/02/16 20:23 98 65 12/02/16 20:00 75/59 12/02/16 20:00 65 12/02/16 19:57 97.0 12/02/16 19:00 98 Mechanical Ventilator 65 12/02/16 19:00 96.3 85 19 111/58 97 12/02/16 19:00 74/57 12/02/16 19:00 91 12/02/16 18:42 97.0 12/02/16 18:14 12/02/16 17:57 16 12/02/16 17:22 12/02/16 17:00 75 12/02/16 16:57 12/02/16 16:45 99 90 12/02/16 16:13 94 Non-Rebreather 15.00 12/02/16 15:34 97.9 12/02/16 15:24 97.9 113 22 80/51 96 12/02/16 15:23 113 12/02/16 15:23 96 Non-Rebreather 90 12/02/16 15:22 12/02/16 14:04 Partial Non-Rebreather 70 12/02/16 14:03 12/02/16 13:45 88 Venturi Mask 6 50 12/02/16 13:45 88 Venturi Mask 6.00 50 12/02/16 13:30 90 60 12/02/16 13:19 97.3 12/02/16 13:12 12/02/16 12:38 92 12/02/16 12:37 94 Mechanical Ventilator 100 12/02/16 12:28 /0 12/02/16 12:19 97.3 92 16 90/67 91 12/02/16 12:15 100 12/02/16 11:52 96.0 12/02/16 11:30 88 80 12/02/16 06:00 104/59 Labs: Laboratory Tests Test 12/02/16 12/03/16 17:54 04:00 Blood Bank Comment Sodium Level 148 MEQ/L (136-145) Potassium Level 4.3 MEQ/L (3.5-5.1) Chloride Level 114 MEQ/L (98-107) Carbon Dioxide Level 25.5 MEQ/L (21.0-32.0) Anion Gap 9 MEQ/L (5-15) Blood Urea Nitrogen 25 MG/DL (7-18) Creatinine 1.58 MG/DL (0.60-1.30) Estimat Glomerular Filtration 45 ML/MIN (>89) Rate Random Glucose 96 MG/DL (74-106) Calcium Level 7.6 MG/DL (8.5-10.1) Magnesium Level 2.4 MG/DL (1.5-2.5) Result Diagram: 12/02/16 0355 12/03/16 0400 Imaging: CXR from this morning shows interstitial pulmonary edema. Cardiovascular: RRR Telemetry: NSR Pulmonary: Bilat crackles GI/: decreased BS Incision: dry and intact CT: ~1 liter, now ~50 ml/hr Plan: The IABP has been in place since Monday and should be discontinued as soon as possible. Wean vent - will discuss with Dr. Fox D/C propofol, start precedex Wean levophed Diurese - if urine output remains low, will consult renal. (1) Chest pain (2) Abnormal EKG (3) STEMI (ST elevation myocardial infarction) Plan: heparin gtt, IABP 1:1, start BB when BP improves unable to start statin 2/2 elevated LFT no ASA for now 2/2 severe profound anemia on admission s/p upper GI, will need eval by GI and Heme as to when it is safe to start currently on heparin gtt (4) Profound anemia Plan: s/p 5 units PRBC HGB 9.4 hematolgy following GI s/p upper GI 2/1 Schatzki ring Hiatal hernia on PPI, GI has signed off (5) Leukopenia Plan: further workup pending (6) Ileus Plan: constipation, abd pain / improved for enemas , relistor for ct abd/ pelvis noted, no free air Problem Qualifiers (1) Chest pain: Qualified Code: R07.9 - Chest pain, unspecified type (2) Profound anemia: Qualified Code: D64.9 - Anemia, unspecified type Nuris Maher MD Dec 03, 2016 05:31
[2016-12-03 05:56] LABS: REVIEW FLAG FINAL
--- NOTE | 2016-12-03 05:56 | RADRPT ---
EXAM DATE/TIME: 12/03/2016 04:58 [facility] COMPARISON: CHEST SINGLE AP, December 02, 2016, 19:13. INDICATIONS : Shortness of breath, possible pulmonary disease. MEDICAL HISTORY : Hypertension. SURGICAL HISTORY : None. ENCOUNTER: Subsequent ACUITY: 2 days PAIN SCORE: Non-responsive. LOCATION: Bilateral chest FINDINGS: Portable AP view of the chest demonstrates cardiac silhouette size at the upper limits for normal. ET T, nasogastric tube, left subclavian central line, and left chest tube remain present. No pneumothora x is visualized. There is diffuse hazy opacity throughout the left lung and there is mild hazy opacit y in the right lower lung zone. Mediastinal drain also remains present. CONCLUSION: 1. Stable chest x-ray. Left chest tube remains present and no pneumothorax is seen. 2. There is diffuse hazy opacity throughout the left lung and there is opacity in the right lower angelica g zone. Mehran Rivero MD on December 03, 2016 at 5:53 Board Certified Radiologist. This report was verified electronically.
[2016-12-03 05:57] LABS: PLATELET COUNT 39 TH/MM3 (150-450)
[2016-12-03] MEDS: AMIODARONE 200 MG TAB PO SCH ×3 (06:00→21:31)
[2016-12-03] MEDS: ACETAMINOPHEN 1000 MG/100 ML VIAL IV SCH ×2 (06:00)
[2016-12-03] MEDS ORDERED: FUROSEMIDE 40 MG/4 ML VIAL IV PUSH PRN (06:00)
[2016-12-03] MEDS ORDERED: PANTOPRAZOLE SOD 40 MG DELAYED RELEASE TAB PO SCH (06:00)
[2016-12-03] MEDS ORDERED: PROMETHAZINE INJ 25 MG/ML VIAL ONE (06:32)
[2016-12-03] MEDS ORDERED: DEXMEDETOMIDINE INJ 50 ML ONE (06:36)
[2016-12-03] MEDS: NOREPINEPHRINE-DEXTROSE DRIP 250 ML IV SCH (06:44)
[2016-12-03] MEDS: PANTOPRAZOLE SODIUM 40 MG VIAL IV SCH (06:46)
[2016-12-03] MEDS ORDERED: PROMETHAZINE INJ 25 MG/ML VIAL IV-CENTRAL ONE (07:30)
[2016-12-03] MEDS: CHLORHEXIDINE 0.12% (ORAL KIT) 15 ML CUP MT SCH ×2 (08:00→20:18)
--- NOTE | 2016-12-03 08:11 | PD.CAR.PN ---
CVT Progress Note Subjective/Hospital Course: 61 yo male.. DOA 11/28/16. PMH LBP, tobaccoism, colon polyps, R ing hernia repair x2, C -spine x2 and occ ETOH ([place]) presents to ED with ongoing "burning " CP present for several weeks exacerbated today. At rest. Received NTG some relief. EKG changes, STT - inf and lat leads. Takes ASA daily since bro from "his aorta" Hgb low ~ 3. Brown stools acc to pt. Hx colon polys - benign 2 years ago w/VACath lab/ STEMI , HGB 3.7 / HCT 10.9 WBC 1.7 Cath - EF 35%; 90% LMain, 30% prox LAD, 95% mid LAD, 80% Cx, 20% OM1, 100% RCA. IABP placed augmented ~110. Currently CP free on 5L NC GI consulted , Hematology consulted 11/29 s/p 5 units PRBC infused Abd KUB noted , + ileus / large amount of stool for enemas today, CT abd and pelvis pending augmenting 1:1 augmentation pressure 107 on Heparin gtt, await eval by hematology to r/o malignancy, bone marrow suppression prior to scheduling of CABG 11/30 appreciate hematology input, MDS vs leukemia workup still pending ? timing for bone marrow bx still has IABP 1:1 augmenting 104 + distal pulses abdomen less distended/ small BM after enemas yesterday for upper GI today will need clearance from Hematology for surgery / HGB stable, on heparin gtt stable for surgery in am will need Bone marrow BX post surgery at some point IABP1:1 12/03/16 Patient experienced respiratory failure yesterday afternoon with hypoxia and increased work of breathing leading to hemodynamic compromise and reintubation. He was then hypotensive on levophed and dopamine with propofol sedation in the setting of a low EF. He also experienced some increased chest tube drainage which has subsided after factor replacement. He has an underlying pancytopenia which has not been adequately evaluated at this time, but was critical from the recent [place]. Overnight, he has improved steadily with oliguria being the only issue currently. 12/03 Overnight events noted Did not tolerate IABP standby with significant drop in hemodynamics. Will maintain IABP for now Platelets dropped to 39k from 128k yesterday. Will transfuse to avoid continued bleeding Wean Vent as tolerated Creatinine up. Will monitor Objective: Vital Signs Date Time Temp Pulse Resp B/P Pulse Ox O2 Delivery O2 Flow Rate FiO2 12/03/16 07:00 83 12/03/16 06:00 95/65 12/03/16 05:08 97.0 12/03/16 05:00 90/61 12/03/16 04:00 101/70 12/03/16 04:00 65 12/03/16 03:12 99 65 12/03/16 03:00 97.3 87 17 110/59 98 12/03/16 03:00 98 Mechanical Ventilator 65 12/03/16 03:00 81/62 12/03/16 03:00 89 12/03/16 02:00 86/61 12/03/16 01:00 92/55 12/03/16 00:15 97.0 12/03/16 00:00 79/57 12/03/16 00:00 65 12/02/16 23:29 98 65 12/02/16 23:00 71/55 12/02/16 23:00 97.5 98 16 126/63 98 12/02/16 23:00 98 Mechanical Ventilator 65 12/02/16 23:00 99 12/02/16 22:10 97.0 12/02/16 22:00 71/55 12/02/16 21:00 74/57 12/02/16 20:23 98 65 12/02/16 20:00 75/59 12/02/16 20:00 65 12/02/16 19:57 97.0 12/02/16 19:00 98 Mechanical Ventilator 65 12/02/16 19:00 96.3 85 19 111/58 97 12/02/16 19:00 74/57 12/02/16 19:00 91 12/02/16 18:42 97.0 12/02/16 18:14 12/02/16 17:57 16 12/02/16 17:22 12/02/16 17:00 75 12/02/16 16:57 12/02/16 16:45 99 90 12/02/16 16:13 94 Non-Rebreather 15.00 12/02/16 15:34 97.9 12/02/16 15:24 97.9 113 22 80/51 96 12/02/16 15:23 113 12/02/16 15:23 96 Non-Rebreather 90 12/02/16 15:22 12/02/16 14:04 Partial Non-Rebreather 70 12/02/16 14:03 12/02/16 13:45 88 Venturi Mask 6 50 12/02/16 13:45 88 Venturi Mask 6.00 50 12/02/16 13:30 90 60 12/02/16 13:19 97.3 12/02/16 13:12 12/02/16 12:38 92 12/02/16 12:37 94 Mechanical Ventilator 100 12/02/16 12:28 /0 12/02/16 12:19 97.3 92 16 90/67 91 12/02/16 12:15 100 12/02/16 11:52 96.0 12/02/16 11:30 88 80 Labs: Laboratory Tests Test 12/03/16 12/03/16 04:00 05:12 White Blood Count 3.2 TH/MM3 (4.0-11.0) Red Blood Count 2.75 MIL/MM3 (4.50-5.90) Hemoglobin 8.3 GM/DL (13.0-17.0) Hematocrit 24.2 % (39.0-51.0) Mean Corpuscular Volume 88.0 FL (80.0-100.0) Mean Corpuscular Hemoglobin 30.3 PG (27.0-34.0) Mean Corpuscular Hemoglobin 34.4 % Concent (32.0-36.0) Red Cell Distribution Width 16.7 % (11.6-17.2) Platelet Count 39 TH/MM3 (150-450) Mean Platelet Volume 7.6 FL (7.0-11.0) Sodium Level 148 MEQ/L (136-145) Potassium Level 4.3 MEQ/L (3.5-5.1) Chloride Level 114 MEQ/L (98-107) Carbon Dioxide Level 25.5 MEQ/L (21.0-32.0) Anion Gap 9 MEQ/L (5-15) Blood Urea Nitrogen 25 MG/DL (7-18) Creatinine 1.58 MG/DL (0.60-1.30) Estimat Glomerular Filtration 45 ML/MIN (>89) Rate Random Glucose 96 MG/DL (74-106) Calcium Level 7.6 MG/DL (8.5-10.1) Magnesium Level 2.4 MG/DL (1.5-2.5) Blood Type O NEGATIVE Crossmatch Leukocyte-Reduced Red Blood Cells Blood Bank Comment Result Diagram: 12/03/1639912/03/16399 (1) Chest pain (2) Abnormal EKG (3) STEMI (ST elevation myocardial infarction) Plan: heparin gtt, IABP 1:1, start BB when BP improves unable to start statin 2/2 elevated LFT no ASA for now 2/2 severe profound anemia on admission s/p upper GI, will need eval by GI and Heme as to when it is safe to start currently on heparin gtt (4) Profound anemia Plan: s/p 5 units PRBC HGB 9.4 hematolgy following GI s/p upper GI 2/ Schatzki ring Hiatal hernia on PPI, GI has signed off (5) Leukopenia Plan: further workup pending (6) Ileus Plan: constipation, abd pain / improved for enemas , relistor for ct abd/ pelvis noted, no free air Problem Qualifiers (1) Chest pain: Qualified Code: R07.9 - Chest pain, unspecified type (2) Profound anemia: Qualified Code: D64.9 - Anemia, unspecified type Pk King MD Dec 03, 2016 08:11
[2016-12-03] MEDS ORDERED: ASPIRIN 81 MG CHEW TAB PO SCH (09:00)
[2016-12-03] MEDS: SODIUM CHLORIDE 0.9% FLUSH 5 ML FLUSH IV FLUSH SCH ×2 (09:00→20:50)
[2016-12-03] MEDS: DOCUSATE SODIUM 100 MG CAP PO SCH ×2 (09:00→20:49)
[2016-12-03] MEDS: DEXMEDETOMIDINE 200 MCG/50 ML NS IV SCH ×2 (09:14→10:59)
[2016-12-03] MEDS: POLYETHYLENE GLYCOL 17 GM PKG PO SCH (09:15)
[2016-12-03] MEDS: FERROUS SULFATE 325 MG (65 MG ELEMENTAL IRON) TAB PO SCH ×2 (09:15→20:49)
[2016-12-03] MEDS: SENNOSIDES 8.6 MG TAB PO SCH ×2 (09:15→21:35)
--- NOTE | 2016-12-03 11:18 | HHI.CCPN ---
Subjective Remarks/Hospital Course 61 yo male.. DOA 11/28/16. PMH LBP, tobaccoism, colon polyps, R ing hernia repair x2, C -spine x2 and occ ETOH ([place]) presents to ED with ongoing "burning " CP present for several weeks exacerbated today. At rest. Received NTG some relief. EKG changes, STT - inf and lat leads. Takes ASA daily since bro from "his aorta" Hgb low ~ 3. Brown stools acc to pt. Hx colon polys - benign 2 years ago w/VACath lab Cath - EF 35%; 90% LMain, 30% prox LAD, 95% mid LAD, 80% Cx, 20% OM1, 100% RCA. IABP placed augmented ~110. Currently CP free on 5L NC 11/29: Afebrile. Continues on IABP at 1:1. Transfuse to total 4 PRBCs since admission. Last bowel movement on Monday?. Some abdominal distention and copious gas and bowel and x-ray. Enemas provided. 2: Afebrile. Resting in bed. Passing flatulence. Small smear for bowel movement. Complaining of abdominal distention. 2/2: Resting in bed comfortably. IABP in place, awaiting CABG scheduled for tomorrow. 23 : Status post CABG 3 today. Extubated today but reintubated due to respiratory distress. Imaging chest and ABG currently pending. Currently on dopamine and norepinephrine for vasopressors. Cardio thoracic surgery aware. Subjective 12/03: Tmax 99.1. Condensation in tubing in IABP yesterday resolved overnight. Urine output currently 10 cc an hour after 80 mg IV Lasix. Platelets 38K. Transfuse 1 unit PRBCs 1 pack platelets today with FiO2 so at 70% Objective Vital Signs Date Time Temp Pulse Resp B/P Pulse Ox O2 Delivery O2 Flow Rate FiO2 12/03/16 10:00 107/68 12/03/16 09:59 90 60 12/03/16 07:00 Mechanical Ventilator 12/03/16 07:00 83 12/03/16 07:00 99.1 17 12/02/16 16:13 15.00 Intake and Output 12/02/16 12/02/16 12/03/16 08:00 16:00 00:00 Intake Total 845 ml 4037 ml Output Total 550 ml 1830 ml Balance 295 ml 2207 ml Result Diagram: 12/03/16 0400 12/03/16 0400 Imaging Last Impressions Chest X-Ray 12/03/16 0500 Signed Impressions: Service Date/Time: Saturday, December 03, 2016 04:58 - CONCLUSION: 1. Stable chest x-ray. Left chest tube remains present and no pneumothorax is seen. 2. There is diffuse hazy opacity throughout the left lung and there is opacity in the right lower lung zone. Mehran Rivero MD Abdomen/Pelvis CT 11/29/16 0000 Signed Impressions: Service Date/Time: Tuesday, November 29, 2016 17:22 - CONCLUSION: No evidence of retroperitoneal hemorrhage or etiology for anemia is identified. There is air lucency within the descending aorta I suspect is artifactual but I cannot confirm any definite metal. Bowel gas pattern is unremarkable. Diverticulosis without evidence of diverticulitis. Alan Gabriel MD Abdomen X-Ray 11/29/16 0000 Signed Impressions: Service Date/Time: Tuesday, November 29, 2016 10:38 - CONCLUSION: No significant change in the overall bowel gas pattern compared to the prior study. Pedrito Gregg MD Lower Extremity Ultrasound 11/28/16 0000 Signed Impressions: Service Date/Time: Monday, November 28, 2016 13:27 - CONCLUSION: 1. Venous mapping as above Abiel Barrow MD Carotid Artery Ultrasound 11/28/16 0000 Signed Impressions: Service Date/Time: Monday, November 28, 2016 12:41 - CONCLUSION: Negative examination for a hemodynamically significant carotid stenosis. Maicol Mccloud MD Abdomen Ultrasound 11/28/16 0000 Signed Impressions: Service Date/Time: Monday, November 28, 2016 12:18 - CONCLUSION: Negative for intrahepatic ductal dilatation. Negative for hydronephrosis. Maicol Mccloud MD FACR Objective Remarks GENERAL: 61 yo male laying in bed w/ IABP NAD SKIN: Cool and dry. No rash HEAD: Atraumatic. Normocephalic. EYES: Pupils equal and round 3 m b/l and rx. No scleral icterus. Some scleral chemosis. ENT: No nasal bleeding or discharge. Mucous membranes pink and moist. NECK: Trachea midline. No JVD. CARDIOVASCULAR: Regular rate and rhythm. S1, S2. IABP augmentation RESPIRATORY: Few coarse crackles appreciated in the bases.. Breath sounds equal bilaterally. GASTROINTESTINAL: Abdomen slightly distended.. Normal bowel sounds without. + MUSCULOSKELETAL: Extremities with 1+ bilateral upper and lower extremity edema. No obvious deformities. IABP in R groin C/D/I NEUROLOGICAL: Currently orotracheally intubated. Positive gag. Positive corneal reflex. Withdraws to pain in bilateral upper and lower extremities Urinary Catheter: Yes Assessment to: Continue House insert reason: Prolonged Immobilization A/P Assessment and Plan Neuro/Psych: ETOH Propofol currently at 10 mcg/kg per minute/fentanyl drips as needed for sedation /analgesia while intubated Started on Precedex drip currently at 1.5 mcg/kg gram per hour Goal RASS -2 Daily sedation vacation Acetominophen for pain [place]/MSO4 for pn management Thiamine, folic/MVI daily CV Postop day #1 CABG x 3 LAWS to LAD SVG to L PDA SVG to OM1 with EVH and SIMÓN 3V CAD CG shock Elevated troponin Cath -EF 35%. Lmain 90%, prox LAD 30%, midLAD 95%, Cx 80%, OM1 20%, RCA 100% IABP 1:1 augmented ~ 110 CTS following. Scheduled for CABG for tomorrow. Cholesterol actually 80. Echo revealed EF 30-35%. Mild AR, MR and TR. RENATE 41 mmHg. Amiodarone 400 mg every 8 hours On dopamine at 5 mcg/kg per minute to maintain map Pulm Respiratory failure/acute Tobacco PRVC 14/600/1/5/60 Ventilator bundle Bronchodilator therapy every 6 hours and as needed Daily sedation vacation Tob cessation encouraged CXR - B/L inf/effusions/CM CT and pelvis revealed small bilateral pleural effusion/right lower lobe atelectasis Follow-up post intubation chest x-ray/ABG Mediastinal/pleural chest tube -20 cm water. 1950 cc SS Received 5000 units Feiba overnight. GI Elevated transaminases Question early ileus Constipation Schatzki ring Hiatal hernia GI s/p upper GI 2/1- Schatzki ring, Hiatal hernia on PPI Protonix daily, GI has signed off Colace/Senna/MiraLAX/BM regimen Received Relistor, enema for colonic ileus. Tube feeds will be initiated with Glucerna 1.5 goal 50 cc an hour Hepatitis negative Negative AMA, ASMA, OLEG No ductal dilatation liver ultrasound CT abdomen/pelvis revealed nonspecific bowel gas pattern. House accurate I/O's in critical ill pt Heme Macro Anemia Neutrophilia Leukopenia Low plts Thrombocytopenia Tx 8U PRBC total B12 and TSH normal. Folate actually slightly elevated. Peripheral smear revealed macrocytic anemia and absolute neutrophilia. Heme c/s Peripheral flow cytometry revealed likely myelodysplastic syndrome. MDS fish and T-cell clonal pending Reticulocyte count normal at 1.7. Absolute check slightly low at 17.5. Note reticulocyte count this was drawn off yesterday's labs prior to blood transfusion. Normal SPEP, HIV status Normal IgA/G/M Haptoglobin slightly elevated 207. LDH elevated. Recheck today with low platelets Transfused 5000 U Feiba overnight Iron sulfate 325 twice a day ID Monitor for infection Postoperative antibiotics per CT surgery. Ancef 1 g every 8 hours times 5 dosages Renal KHALIF Creatinine currently at 1.5. Renal ultrasound will be repeated. Initially revealed no hydronephrosis Recx BMP in AM IV fluids per CT surgery Receiving albumin currently. Urine electrolytes and eosinophils pending Nephrology consulted for possible hemodialysis tomorrow MSK Bedrest with balloon pump FEN: Replace electrolytes as clinically indicated ENDO: Sliding scale insulin/insulin drip at 6 units an hour per CT surgery to maintain euglycemia Access Left subclavian Cordis with dual-lumen day 2 Right radial arterial line day #2 Proph GI- Protonix DVT - heparin Critical Care: The total critical care time was 45 minutes. Time to perform other separately billable procedures was not included in the critical care time. Shailesh Skelton MD Dec 03, 2016 11:18
[2016-12-03] MEDS: ALBUMIN HUMAN 25% 25 GM/100 ML BAGP IV SCH ×3 (11:36→23:59)
[2016-12-03] MEDS ORDERED: DOPamine INJ PREMIX 500 ML ONE (12:12)
[2016-12-03 12:13] LABS: HEMATOCRIT 24.1 % (39.0-51.0); MEAN CELL VOLUME 87.2 FL (80.0-100.0); MEAN CORPUSCULAR HEMOGLOBIN 30.5 PG (27.0-34.0); PLATELET COUNT 63 TH/MM3 (150-450); RED BLOOD COUNT 2.76 MIL/MM3 (4.50-5.90); RED CELL DISTRIBUTION WIDTH 15.9 % (11.6-17.2); WHITE BLOOD COUNT 3.1 TH/MM3 (4.0-11.0)
[2016-12-03 12:20] LABS: REVIEW FLAG FINAL
[2016-12-03 12:44] LABS: BICARBONATE 25.9 MEQ/L (21.0-32.0); POTASSIUM 4.8 MEQ/L (3.5-5.1)
--- NOTE | 2016-12-03 13:58 | PD.PROCEDR ---
Procedure Note Procedure DATE: HEMODIALYSIS LINE PLACEMENT: Left internal jugular vein. Ultrasound-guided INDICATION: Hemodialysis access CONSENT Informed consent for procedure was obtained. DESCRIPTION OF THE PROCEDURE The patient was placed in supine position. The skin was cleansed with Chloraprep. Additional barrier precautions included large sterile drape, sterile gloves, sterile gown, face mask, and hat. 1 % lidocaine was used for local anesthesia. Under direct ultrasound guidance and on first attempt, the vein was accessed with an introducer needle. The guide wire was advanced and the tract was dilated. Using Seldinger technique a 14 [place]ian 20 cm hemodialysis catheter was advanced to a depth of 20 centimeters. The guide wire was removed. All ports had good return of dark venous blood and flushed easily with saline. The central line was secured with 2.0 silk. A sterile dressing with antibiotic disc was applied. ESTIMATED BLOOD LOSS: Minimal COMPLICATIONS: No apparent complications. STAT chest x-ray pending at time of dictation Shailesh Skelton MD Dec 03, 2016 13:58
[2016-12-03] MEDS ORDERED: HEPARIN SODIUM - IV 10,000 UNITS/10 ML VIAL IVF PRN (14:00)
[2016-12-03] MEDS ORDERED: SODIUM CHLORIDE 0.9% FLUSH 5 ML FLUSH IVF PRN (14:00)
[2016-12-03] MEDS: SODIUM CHLOR 0.9% 1000 ML INJ 1,000 ML IV SCH ×5 (14:00→23:31)
[2016-12-03] MEDS ORDERED: ARGATROBAN 250 MG in NS 250 ML IV SCH ×2 (14:00→17:15)
--- NOTE | 2016-12-03 14:07 | MB ---
cc: ERIKA ORTEZ MD DATE OF CONSULTATION: 12/03/2016 REASON FOR CONSULTATION: Acute renal failure management. HISTORY OF PRESENT ILLNESS: This is a 61-year-old male who has a previous history of COPD, tobacco abuse and colon polyps. The patient was admitted on November 28 when he presented with an S-T elevation myocardial infarction. The patient had a cardiac catheterization and had multiple vessel disease and subsequently underwent placement of an intraaortic balloon pump. He had an ejection fraction of 35% and was in cardiogenic shock. The patient was then further underwent a CABG x3 yesterday on December 02. Postoperatively the patient was attempted to be taken off the intraaortic balloon pump; however, his systolic blood pressure dropped to the 70s. He was re-started on the balloon pump as well as dopamine and continues on it at this time. Over the last 24 hours, the patient has had a decrease in urine output and is anuric at this time. He was apparently urinating well prior to surgery with approximately 2 liters of urine output. His creatinine was 0.8 yesterday and postoperatively it increased to 1.58 and again he has been anuric over the last 24 hours. The patient is also being evaluated for myelodysplastic syndrome here. Here he presented with anemia with a hemoglobin of only 3 at the time of presentation. He was transfused more than 8 units of packed red blood cells. An upper endoscopy showed signs of a Schatzki's ring. He is followed up with hematology and has been assessed with apparent myelodysplastic syndrome. He also has thrombocytopenia and his platelet levels are in the 30s today. He was transfused platelets earlier and hematology is following the case as well. The patient is intubated at this time and unable to give a history. History was obtained from the chart. At this time, he is anuric and nephrology was consulted for further evaluation. PAST MEDICAL HISTORY: His past medical history includes: 1. COPD. 2. Tobacco use. 3. Colon polyps. 4. Degenerative joint disease. 5. Chronic pain. PAST SURGICAL HISTORY: 1. Hernia repair x2. 2. Neck surgery. 3. Colonoscopy. 4. Polypectomy. REVIEW OF SYSTEMS: A review of systems is unobtainable at this time. ALLERGIES: NO KNOWN DRUG ALLERGIES. FAMILY HISTORY: Father with lung cancer and mother with coronary artery disease. SOCIAL HISTORY: The patient has a history of social alcohol use. The patient has history of long-term smoking with five cigarettes per day prior to admission. PHYSICAL EXAMINATION: VITAL SIGNS: At the time of evaluation, temperature 99.2, pulse 86, respiratory rate 17, blood pressure 147/52 with pulse oximetry of 93% on 60% FIO2. GENERAL: The patient is intubated. HEAD, EYES, EARS, NOSE, THROAT: Neck soft supple. CARDIAC: Regular rate and rhythm. The patient has an intraaortic balloon pump. PULMONARY: Decreased breath sounds. Coarse rhonchi. ABDOMEN: The abdomen is soft. Decreased abdominal sounds. EXTREMITIES: Trace edema. LABORATORY FINDINGS: Sodium 148, potassium 4.3, chloride 114, bicarb 25.5, BUN 25, creatinine 1.58 with a glucose of 96, calcium of 7.6, magnesium 2.4. White count 3.2, hemoglobin 8.3, hematocrit 24.2 with platelet count of 39. Initial urinalysis negative for protein, glucose or ketones. The patient has had negative OLEG testing here. Hepatitis serology is negative here. HIV serology is negative here in the hospital. ASSESSMENT AND PLAN: 1. PROBLEM #1: Acute kidney injury. The patient is anuric status post CABG yesterday and is now on an intraaortic balloon pump as well as pressor support with dopamine at this point. He has apparent cardiogenic shock and likely has developed ATN secondary to hypotension. He is essentially anuric at this point with no urine output despite a trial of Lasix earlier this morning. A bladder scan is negative at this time for any signs of any urine and the patient has a repeat renal ultrasound ordered for today which is pending. At this point the patient is essentially anuric with no signs of any intrinsic renal function and he will likely need dialysis support. We will attempt a Bumex drip at this time to see if there is any improvement in urine output; however, I discussed this with the house painter and the patient will need placement of a dialysis catheter for CRRT, which can be started within the next 24 to 48 hours depending on electrolyte findings. Of note, catheter placement may be somewhat complicated due to a low platelets and may need to transfuse platelets as necessary for dialysis catheter. It does not appear that the patient had any intrinsic chronic kidney disease prior to this admission and his creatinine was only 0.8 prior to his heart surgery. His initial urinalysis was negative as well. Continue hemodynamic support as possible and wean pressors as possible. However, the patient will need CRRT initiation if no signs of any urine improvement. Will continue to follow with the intensive care team. 2. PROBLEM #2: Coronary artery disease. The patient presents with cardiogenic shock. He had the cardiac cath on November 28 with contrast exposure. He also has developed postoperative cardiogenic shock with CABG x3 performed yesterday. Continue to medically support. The patient continues with an intraaortic balloon pump. He was initially extubated yesterday postoperatively and was reintubated and now continues with dopamine at this time. Continue to monitor with the ICU team. 3. PROBLEM #3: Respiratory failure. The patient is intubated. Will attempt a Bumex drip and if that does not result in any urine output, will need CRRT initiation. 4. PROBLEM #4: Anemia. The patient is being followed up with hematology. He presented with a hemoglobin of 3. He has received over eight units of packed red blood cells. An upper endoscopy showed signs only of a Schatzki's ring. At this point, follow with hematology. He has apparent myelodysplastic syndrome and continue to follow up lab workup with hematology. 5. Thrombocytopenia and apparent myelodysplastic syndrome: Patient also with setting of cardiogenic shock. Platelets were only in the 30s today and platelets were transfused earlier. Continue follow up with hematology. MD [place] Fields/YUNIEL /12:48 PM /1:53 PM DIAN
--- NOTE | 2016-12-03 14:21 | RADRPT ---
EXAM DATE/TIME: 12/03/2016 13:55 [facility] COMPARISON: CHEST SINGLE AP, December 03, 2016, 4:58. INDICATIONS : Post left-sided Vas cath placement. MEDICAL HISTORY : Hypertension. SURGICAL HISTORY : None. ENCOUNTER: Subsequent ACUITY: 2 days PAIN SCORE: Non-responsive. LOCATION: Bilateral chest FINDINGS: A single view of the chest demonstrates cardiomegaly and previous CABG. Mediastinal and left-sided ch est tubes are stable. Endotracheal tube, nasogastric tube left subclavian central line are stable in position. Left jugular vascular catheter with tip in the brachiocephalic vein. The cardiomediastinal contours are unremarkable. Osseous structures are intact. CONCLUSION: Adequate replacement of left-sided vascular catheter. Daryn Raymond MD on December 03, 2016 at 14:19 Board Certified Radiologist. This report was verified electronically.
[2016-12-03] MEDS ORDERED: BUMETANIDE INJ 100 ML IV SCH (15:00)
[2016-12-03] MEDS ORDERED: DEXMEDETOMIDINE INJ 1,000 MCG in SODIUM CHLOR 0.9% 250 ML INJ 240 ML IV SCH (16:45)
--- NOTE | 2016-12-03 17:29 | RADRPT ---
EXAM DATE/TIME: 12/03/2016 15:34 [facility] COMPARISON: No previous studies available for comparison. INDICATIONS : Increased BUN and Creatinine. MEDICAL HISTORY : Chronic obstructive pulmonary disease. Seizures. Hearing loss. Arthritis. Blood transfusion. Left s capular nerve injury. SURGICAL HISTORY : Cervical fusion. Hernia repair x 2. Upper jaw repair ENCOUNTER: Initial ACUITY: 1 day PAIN SCORE: Nonresponsive. LOCATION: Bilateral flank MEASUREMENTS: RIGHT KIDNEY: 11.0 x 6.1 x 4.6 cm LEFT KIDNEY: 11.3 x 6.6 x 5.9 cm FINDINGS: RIGHT KIDNEY: Renal cortex is normal in thickness and echotexture. No hydronephrosis, stone, or mass. LEFT KIDNEY: Renal cortex is normal in thickness and echotexture. No hydronephrosis, stone, or mass. BLADDER: Decompressed by House. CONCLUSION: 1. Unremarkable renal ultrasound. Shakir Meier MD on December 03, 2016 at 17:27 Board Certified Radiologist. This report was verified electronically.
[2016-12-03] MEDS ORDERED: MIDAZOLAM 100 MG/ML INJ 100 ML IV SCH (17:45)
[2016-12-03 18:14] LABS: BLOOD GAS BASE EXCESS -2.9 mmol/L (-2-2); BLOOD GAS CARBOXYHEMOGLOBIN 2.1 % (0-4); BLOOD GAS HCO3 21 mmol/L (22-26); BLOOD GAS METHEMOGLOBIN 1.1 % (0-2); BLOOD GAS O2 HGB SATURATION 90 % (90-100); BLOOD GAS OXYGEN CONTENT 8.7 Vol % (12.0-20.0); BLOOD GAS PCO2 32 mmHg (38-42); BLOOD GAS PO2 64 mmHg (61-120); BLOOD GAS TOTAL HGB 6.8 G/DL (12.0-16.0); CRITICAL VALUE YES; DRAW SITE ART LINE; FIO2 70 %; NUMBER OF ARTERIAL PUNCTURES 0; OXYGEN DEVICE VENTILATOR; STAT YES; TEMP CORR TO 98.6; ULNAR PULSE PRESENT; VENT SETTINGS AC14/600/PEEP5
[2016-12-03] MEDS ORDERED: POLYETHYLENE GLYCOL 17 GM PKG PO/NG SCH (21:00)
[2016-12-03 23:58] LABS: MITOCHONDRIAL ABS LESS THAN 20.0 U (())
[2016-12-04] VITALS (9 sets, daily range): BP systolic 77–112; BP diastolic 45–59; PULSE 110–130; RESP 14–25; TEMP 100.8; O2SAT 71–95
[2016-12-04] MEDS: SODIUM CHLOR 0.9% 1000 ML INJ 1,000 ML IV SCH ×4 (00:36→06:21)
[2016-12-04 00:38] LABS: HEMATOCRIT 24.8 % (39.0-51.0); MEAN CELL VOLUME 85.4 FL (80.0-100.0); MEAN CORPUSCULAR HEMOGLOBIN 29.6 PG (27.0-34.0); MEAN CORPUSCULAR HGB CONC 34.6 % (32.0-36.0); PLATELET COUNT 34 TH/MM3 (150-450); RED CELL DISTRIBUTION WIDTH 16.6 % (11.6-17.2); WHITE BLOOD COUNT 3.5 TH/MM3 (4.0-11.0)
[2016-12-04 00:50] LABS: APTT (PATIENT) 54.6 SEC (24.3-30.1); INTERNATIONAL NORMALIZED RATIO 1.7 RATIO; PROTHROMBIN TIME - PATIENT 19.8 SEC (9.8-11.6)
[2016-12-04 00:59] LABS: REVIEW FLAG FINAL
[2016-12-04] MEDS ORDERED: SODIUM CHLOR 0.9% 250 ML INJ 250 ML IV ONE ×4 (03:00→05:45)
[2016-12-04] MEDS: RESP: ALBUTEROL 2.5 MG/IPRATROPIUM 0.5 MG NEB (SCH) NEB (03:53)
[2016-12-04] MEDS: CHLORHEXIDINE GLUCONATE 2 % 1 PACK (2 CLOTHS) TOP SCH (04:00)
[2016-12-04] MEDS: NOREPINEPHRINE-DEXTROSE DRIP 250 ML IV SCH (04:09)
[2016-12-04] MEDS: PROPOFOL 1000 MG/100 ML INJ 100 ML IV SCH (04:09)
--- NOTE | 2016-12-04 04:19 | RADRPT ---
EXAM DATE/TIME: 12/04/2016 03:25 [facility] COMPARISON: CHEST SINGLE AP, December 03, 2016, 13:55. INDICATIONS : Shortness of breath, possible pulmonary disease. MEDICAL HISTORY : Hypertension. SURGICAL HISTORY : CABG. ENCOUNTER: Subsequent ACUITY: 3 days PAIN SCORE: Non-responsive. LOCATION: Bilateral chest FINDINGS: Portable AP view of the chest demonstrates a normal-sized cardiac silhouette in this patient post med chandler sternotomy. ETT, nasogastric tube, left subclavian central line, left IJ central line, mediastina l drain, and left chest tube remain present. No pneumothorax is visualized. There is increased right basilar pleural-parenchymal opacity. There is persistent opacity in the left mid to lower lung zone. CONCLUSION: 1. Increased right basilar opacity likely representing small pleural effusion with associated volume loss and/or consolidation. 2. Persistent airspace consolidation in the left mid and lower lung zone. 3. Left chest tube remains present no pneumothorax is visualized. Mehran Rivero MD on December 04, 2016 at 4:15 Board Certified Radiologist. This report was verified electronically.
[2016-12-04] MEDS ORDERED: NOREPINEPHRINE 4 MG/D5W 250 ML IV SCH (05:00)
[2016-12-04] MEDS ORDERED: CISATRACURIUM BESYLATE 20 MG/10 ML VIAL IV ONE (05:00)
[2016-12-04] MEDS ORDERED: PHENYLEPHRINE 40 MG/D5W 496 ML ADMIX IV SCH ×2 (05:00)
[2016-12-04] MEDS ORDERED: PHENYLEPHRINE INJ 160 MG in DEXTROSE 5% IN WATE 500 ML INJ 484 ML IV SCH ×2 (05:00)
[2016-12-04] MEDS ORDERED: TERBUTALINE INJ 1 MG/ML AMP SQ PRN ×3 (05:00→05:45)
[2016-12-04 05:20] LABS: HEMATOCRIT 24.2 % (39.0-51.0); MEAN CELL VOLUME 86.6 FL (80.0-100.0); MEAN CORPUSCULAR HEMOGLOBIN 29.3 PG (27.0-34.0); MEAN CORPUSCULAR HGB CONC 33.9 % (32.0-36.0); PLATELET COUNT 21 TH/MM3 (150-450); RED BLOOD COUNT 2.79 MIL/MM3 (4.50-5.90); RED CELL DISTRIBUTION WIDTH 16.7 % (11.6-17.2); WHITE BLOOD COUNT 1.7 TH/MM3 (4.0-11.0)
[2016-12-04 05:29] LABS: HEMO FLAGS AUTO DIFF
[2016-12-04] MEDS ORDERED: ROCURONIUM INJ 50 MG/5 ML VIAL IV ONE (05:30)
[2016-12-04] MEDS ORDERED: ROCURONIUM INJ 50 MG/5 ML VIAL ONE (05:35)
[2016-12-04 05:38] LABS: BICARBONATE 19.5 MEQ/L (21.0-32.0); MAGNESIUM 2.1 MG/DL (1.5-2.5); POTASSIUM 4.3 MEQ/L (3.5-5.1)
[2016-12-04] MEDS ORDERED: MIDAZOLAM HCL 2 MG/2 ML VIAL ONE (05:38)
[2016-12-04] MEDS ORDERED: AMIODARONE INJ 450 MG in DEXTROSE 5% IN WATE(EXCEL) INJ 241 ML IV SCH ×2 (05:45)
[2016-12-04] MEDS ORDERED: CISATRACURIUM BESYLATE 20 MG/10 ML VIAL IVP ONE (05:45)
[2016-12-04] MEDS ORDERED: NOREPINEPHRINE-DEXTROSE DRIP 250 ML IV SCH (05:45)
[2016-12-04] MEDS ORDERED: AMIODARONE INJ 150 MG in DEXTROSE 5% IN WATER 100ML INJ 97 ML IV ONE ×2 (05:45)
[2016-12-04] MEDS ORDERED: CISATRACURIUM INJ 100 MG in SODIUM CHLOR 0.9% 250 ML INJ 240 ML IV SCH (05:45)
[2016-12-04] MEDS ORDERED: MIDAZOLAM HCL 2 MG/2 ML VIAL IV PUSH ONE (05:45)
[2016-12-04 05:47] LABS: CALCIUM-PROTEIN CORRECTED 7.9 MG/DL (8.5-10.1); TOTAL BILIRUBIN ADULT 1.9 MG/DL (0.2-1.0)
[2016-12-04] MEDS: HYDROCORTISONE SOD SUCCINATE 100 MG VIAL IV PUSH SCH ×2 (06:00→06:07)
[2016-12-04] MEDS ORDERED: SODIUM BICARBONATE 8.4% INJ 50 ML ONE ×3 (06:01→08:55)
[2016-12-04 06:02] LABS: BLOOD GAS BASE EXCESS -13.5 mmol/L (-2-2); BLOOD GAS CARBOXYHEMOGLOBIN 1.9 % (0-4); BLOOD GAS HCO3 16 mmol/L (22-26); BLOOD GAS METHEMOGLOBIN 1.3 % (0-2); BLOOD GAS O2 HGB SATURATION 77 % (90-100); BLOOD GAS OXYGEN CONTENT 9.8 Vol % (12.0-20.0); BLOOD GAS PCO2 69 mmHg (38-42); BLOOD GAS PO2 60 mmHg (61-120); TEMP CORR TO 98.6
[2016-12-04 06:03] LABS: CRITICAL VALUE YES; DRAW SITE ART LINE; FIO2 100 %; OXYGEN DEVICE VENTILATOR; STAT YES; VENT SETTINGS PC/AC
[2016-12-04] MEDS ORDERED: DOPamine INJ PREMIX 500 ML ONE (06:05)
[2016-12-04] MEDS: ALBUMIN HUMAN 25% 25 GM/100 ML BAGP IV SCH (06:08)
[2016-12-04] MEDS ORDERED: SODIUM BICARBONATE 8.4% INJ 50 MEQ/50 ML SYR IV PUSH ONE (06:15)
[2016-12-04 06:40] LABS: APTT (PATIENT) 86.3 SEC (24.3-30.1); INTERNATIONAL NORMALIZED RATIO 2.7 RATIO; PROTHROMBIN TIME - PATIENT 31.4 SEC (9.8-11.6)
[2016-12-04] MEDS ORDERED: SODIUM BICARBONATE 8.4% INJ 150 MEQ in WATER STERILE FOR INJ 850 ML IV SCH (07:00)
[2016-12-04] MEDS ORDERED: MICAFUNGIN INJ 100 MG in SODIUM CHLORIDE 0.9% INJ 100 ML IV SCH (07:00)
[2016-12-04] MEDS ORDERED: metroNIDAZOLE 500 MG INJ 100 ML IV SCH (07:00)
[2016-12-04] MEDS ORDERED: PROTHROMBIN COMPLEX CONC INJ 3,000 UNITS in SYRINGE/BAG 1 EA IV ONE (07:15)
[2016-12-04] MEDS ORDERED: VASOPRESSIN INJ 40 UNITS in DEXTROSE 5% IN WATER 100ML INJ 98 ML IV SCH ×2 (07:42)
--- NOTE | 2016-12-04 07:48 | HHI.CCPN ---
Subjective Remarks/Hospital Course 61 yo male.. DOA 11/28/16. PMH LBP, tobaccoism, colon polyps, R ing hernia repair x2, C -spine x2 and occ ETOH ([place]) presents to ED with ongoing "burning " CP present for several weeks exacerbated today. At rest. Received NTG some relief. EKG changes, STT - inf and lat leads. Takes ASA daily since bro from "his aorta" Hgb low ~ 3. Brown stools acc to pt. Hx colon polys - benign 2 years ago w/VACath lab Cath - EF 35%; 90% LMain, 30% prox LAD, 95% mid LAD, 80% Cx, 20% OM1, 100% RCA. IABP placed augmented ~110. Currently CP free on 5L NC 11/29: Afebrile. Continues on IABP at 1:1. Transfuse to total 4 PRBCs since admission. Last bowel movement on Monday?. Some abdominal distention and copious gas and bowel and x-ray. Enemas provided. 11/30: Afebrile. Resting in bed. Passing flatulence. Small smear for bowel movement. Complaining of abdominal distention. 22: Resting in bed comfortably. IABP in place, awaiting CABG scheduled for tomorrow. 12/02 : Status post CABG 3 today. Extubated today but reintubated due to respiratory distress. Imaging chest and ABG currently pending. Currently on dopamine and norepinephrine for vasopressors. Cardio thoracic surgery aware. 12/03: Tmax 99.1. Condensation in tubing in IABP yesterday resolved overnight. Urine output currently 10 cc an hour after 80 mg IV Lasix. Platelets 38K. Transfuse 1 unit PRBCs 1 pack platelets today with FiO2 so at 70% Subjective 12/04: Approximately 3 AM, patient desaturated with increasing vasopressor requirement. Required paralyzation for vent synchrony with Nimbex. Attempted hyperventilation but desaturated due to breath stacking. Currently on inverse ratio ventilation neurosurgeon oxygenation. PCO2 is rising likely affecting cardiac output. Dr. King CT surgery and Dr. Colindres notified by Dr. Fox overnight. Stat echocardiogram rule out pericardial effusion pending. On bedside echo unable to see any significant compromising pericardial effusion. Not tolerating tube feeding. No bowel movement. Currently afebrile. Objective Vital Signs Date Time Temp Pulse Resp B/P Pulse Ox O2 Delivery O2 Flow Rate FiO2 12/04/16 06:16 87 100 12/04/16 03:30 Mechanical Ventilator 12/04/16 01:00 97/58 12/04/16 00:00 100.8 110 18 12/02/16 16:13 15.00 Intake and Output 12/03/16 12/03/16 12/04/16 08:00 16:00 00:00 Intake Total 2959 ml 1685 ml Output Total 3050 ml 550 ml Balance -91 ml 1135 ml Result Diagram: 12/04/16 0505 12/04/16 0505 Imaging Last Impressions Chest X-Ray 12/04/16 0600 Signed Impressions: Service Date/Time: Sunday, December 04, 2016 03:25 - CONCLUSION: 1. Increased right basilar opacity likely representing small pleural effusion with associated volume loss and/or consolidation. 2. Persistent airspace consolidation in the left mid and lower lung zone. 3. Left chest tube remains present no pneumothorax is visualized. Mehran Rivero MD Renal Ultrasound 12/03/16 0000 Signed Impressions: Service Date/Time: Saturday, December 03, 2016 15:34 - CONCLUSION: 1. Unremarkable renal ultrasound. Shakir Meier MD Abdomen/Pelvis CT 11/29/16 0000 Signed Impressions: Service Date/Time: Tuesday, November 29, 2016 17:22 - CONCLUSION: No evidence of retroperitoneal hemorrhage or etiology for anemia is identified. There is air lucency within the descending aorta I suspect is artifactual but I cannot confirm any definite metal. Bowel gas pattern is unremarkable. Diverticulosis without evidence of diverticulitis. Alan Gabriel MD Abdomen X-Ray 11/29/16 0000 Signed Impressions: Service Date/Time: Tuesday, November 29, 2016 10:38 - CONCLUSION: No significant change in the overall bowel gas pattern compared to the prior study. Pedrito Gregg MD Lower Extremity Ultrasound 11/28/16 0000 Signed Impressions: Service Date/Time: Monday, November 28, 2016 13:27 - CONCLUSION: 1. Venous mapping as above Abiel Brarow MD Carotid Artery Ultrasound 11/28/16 0000 Signed Impressions: Service Date/Time: Monday, November 28, 2016 12:41 - CONCLUSION: Negative examination for a hemodynamically significant carotid stenosis. Maicol Mccloud MD Abdomen Ultrasound 11/28/16 0000 Signed Impressions: Service Date/Time: Monday, November 28, 2016 12:18 - CONCLUSION: Negative for intrahepatic ductal dilatation. Negative for hydronephrosis. Maicol Mccloud MD FACR Objective Remarks GENERAL: 61 yo male laying in bed w/ IABP ASHEN APPEARING SKIN: Cool and dry. No rash HEAD: Atraumatic. Normocephalic. EYES: Pupils equal and round 3 m b/l and rx. No scleral icterus. Some scleral chemosis. ENT: No nasal bleeding or discharge. Mucous membranes pink and moist. NECK: Trachea midline. No JVD. CARDIOVASCULAR: Tachycardia, RR. S1, S2. No S4. I don't appreciate murmur IABP augmentation RESPIRATORY: Few coarse crackles appreciated in the bases. Positive expiratory wheeze.. Breath sounds equal bilaterally. GASTROINTESTINAL: Abdomen slightly distended.. Bowel sounds are appreciated. MUSCULOSKELETAL: Extremities with 1+ to 2+ bilateral upper and lower extremity edema. No obvious deformities. IABP in R groin C/D/I NEUROLOGICAL: Currently orotracheally intubated. Paralyzed on the ventilator. A/P Assessment and Plan Neuro/Psych: ETOH Propofol currently at 10 mcg/kg per minute/Versed drip at 2 mg an hour and fentanyl drips 150 g an hour for sedation/analgesia while intubated Started on Nimbex drip currently at 1 mcg/kg/m to maintain [id number] 2 out of 4 Goal BIS 40-60 Sedation vacation while paralyzed Acetominophen for pain [place]/MSO4 for prn management Thiamine, folic/MVI daily CV Postop day #2 CABG x 3 LAWS to LAD SVG to L PDA SVG to OM1 with EVH and SIMÓN 3V CAD CG shock Elevated troponin Lactic acidosis Cath -EF 35%. Lmain 90%, prox LAD 30%, midLAD 95%, Cx 80%, OM1 20%, RCA 100% IABP 1:1 augmented ~ 110 CTS following. Cholesterol actually 80. Echo revealed EF 30-35%. Mild AR, MR and TR. RENATE 41 mmHg. Stat echo to/5 EF approximately 20%. Inferior hypokinesis. No significant pericardial effusion/tamponade Amiodarone 400 mg every 8 hours with cystoscopy and amiodarone drip while nothing by mouth On dopamine at 10 mcg/kg per minute, norepinephrine at 50 g per minute, Anup- Synephrine at 180 g per minute to maintain MAP > 65 Will add vasopressin and epinephrine drips indicated Stress dose Solu-Cortef 100 every 8 added Serial lactates until cleared. Currently 6 Pulm Respiratory failure/acute Tobacco PC/AC 14/600/2.3/15/100 Ventilator bundle Bronchodilator therapy every 6 hours and as needed Added Flolan Tob cessation encouraged CXR 2/5 AM - B/L right greater than left inf/effusions/CM CT and pelvis this admission revealed small bilateral pleural effusion/right lower lobe atelectasis Serial ABGs throughout the day. Chest chest x-ray in a.m. Mediastinal/pleural chest tube -20 cm water. Around 750 cc SS Received 5000 units Feiba 1 now. GI Elevated transaminases Question early ileus Constipation Schatzki ring Hiatal hernia GI s/p upper GI /- Schatzki ring, Hiatal hernia on PPI Protonix daily, GI has signed off Colace/Senna/MiraLAX/BM regimen Received Relistor, enema for colonic ileus. Tube feeds will be initiated with Glucerna 1.5 goal 50 cc an hour early on hold Hepatitis negative Negative AMA, ASMA, OLEG No ductal dilatation liver ultrasound CT abdomen/pelvis revealed nonspecific bowel gas pattern. House accurate I/O's in critical ill pt Heme Macro Anemia Neutrophilia Leukopenia Low plts Thrombocytopenia Tx 11U PRBC total B12 and TSH normal. Folate actually slightly elevated. Peripheral smear revealed macrocytic anemia and absolute neutrophilia. Heme c/s Peripheral flow cytometry revealed likely myelodysplastic syndrome. MDS fish and T-cell clonal pending Reticulocyte count normal at 1.7. Absolute check slightly low at 17.5. Note reticulocyte count this was drawn off yesterday's labs prior to blood transfusion. Normal SPEP, HIV status Normal IgA/G/M Haptoglobin slightly elevated 207. LDH elevated. Recheck today with low platelets Transfused 5000 U Feiba units nightly tonight morning Iron sulfate 325 twice a day Currently on argatroban for CVVH. We will discuss with Dr. Colindres possibly adjusting ID Initiate vancomycin, cefepime, Flagyl and micafungin secondary to prolonged intubation/V?AP possible line infection. Postoperative antibiotics per CT surgery. Ancef 1 g every 8 hours times 5 dosages has been completed Blood cultures 2, sputum and UA all pending as of 12/04 at 0800. Infectious disease consultation Renal KHALIF - hemodialysis Nephrology consulted yesterday for hemodialysis/CVVH Essentially anuric. 40 cc overnight. Renal ultrasound revealed no hydronephrosis Yesterday, initiated with CVVH. Noted adjustment bicarbonate this a.m. due to severe acidosis. MSK Bedrest with balloon pump FEN: Replace electrolytes as clinically indicated ENDO: Sliding scale insulin/insulin drip at 6 units an hour per CT surgery to maintain euglycemia Access Left subclavian Cordis with dual-lumen day 3 Right radial arterial line day #3 Left IJ hemodialysis catheter day #2 Proph GI- Protonix DVT - heparin Critical Care: The total critical care time was 45 minutes. Time to perform other separately billable procedures was not included in the critical care time. Prognosis is quite poor. We'll discuss with brother Demetrius at bedside currently. Discussed with Dr. King bedside. Discussed echocardiogram Dr. Olmos. Care plan discussed all questions answered. Shailesh Skelton MD Dec 04, 2016 07:48
[2016-12-04] MEDS ORDERED: EPOPROSTENOL NEB SOLUTION 50 NG/KG/MIN 100 ML NEB SCH ×2 (08:00)
[2016-12-04] MEDS ORDERED: CEFEPIME INJ 2,000 MG in SODIUM CHLORIDE 0.9% INJ 100 ML IV SCH (08:00)
[2016-12-04] MEDS ORDERED: VANCOMYCIN INJ 2,000 MG in SODIUM CHLORID 0.9% 500 ML INJ 500 ML IV ONE (08:00)
[2016-12-04 08:06] LABS: LACTIC ACID GHOST NOT REPORTABLE
--- NOTE | 2016-12-04 08:13 | EC ---
Study Study Date:12/04/2016 STUDY CONCLUSIONS SUMMARY LEFT VENTRICLE: Systolic function was severely reduced. The estimated ejection fraction was in the range of 20% to 25%. Diffuse hypokinesis. If LV function is below 40, please consider prescribing an ACEI or ARB or document rationale for non-use. PROCEDURE DATA Procedure: Transthoracic echocardiography. Image quality was fair. Scanning was performed from the parasternal, apical, and subcostal acoustic windows. Study completion: The patient tolerated the procedure well. Results called to Dr. Nancy Skelton. Transthoracic echocardiography. M-mode, limited 2D, limited spectral Doppler, and color Doppler. Height: Height: 71in. Weight: Weight: 225.5lb. Body mass index: BMI: 31.5kg/m^2. Body surface area: BSA: 2.22m^2. CARDIAC ANATOMY LEFT VENTRICLE: Systolic function was severely reduced. The estimated ejection fraction was in the range of 20% to 25%. Diffuse hypokinesis. AORTIC VALVE: Not well visualized. Normal thickness leaflets. MITRAL VALVE: Structurally normal valve. Leaflet separation was normal. RIGHT VENTRICLE: Systolic function was normal. TRICUSPID VALVE: Structurally normal valve. Leaflet separation was normal. Doppler: Transvalvular velocity was within the normal range. There was no evidence for stenosis. No regurgitation. PERICARDIUM: There was no pericardial effusion. Patient weight: 225.5lb _Ejection fraction:_ 65-75% _Fractional shortening:_ 32% up to 5Kg 5-11.5Kg 11.6-22.9Kg 23-45Kg 45-57Kg Aortic Root 7-13 <17 13-22 17-27 17-27 LA diam 6-13 <23 24-38 33-47 37-40 RVID 10-17 7-15 7-15 7-18 8-17 LVIDd 12-22 <32 24-38 33-47 37-40 LVPW 2-4 3-6 5-7 6-8 7-8 IVS 2-4 3-6 5-7 6-8 7-8 Prepared and signed by Geoffrey Olmos [id number]
--- NOTE | 2016-12-04 08:14 | PD.CAR.PN ---
CVT Progress Note Subjective/Hospital Course: 61 yo male.. DOA 11/28/16. PMH LBP, tobaccoism, colon polyps, R ing hernia repair x2, C -spine x2 and occ ETOH ([place]) presents to ED with ongoing "burning " CP present for several weeks exacerbated today. At rest. Received NTG some relief. EKG changes, STT - inf and lat leads. Takes ASA daily since bro from "his aorta" Hgb low ~ 3. Brown stools acc to pt. Hx colon polys - benign 2 years ago w/VACath lab/ STEMI , HGB 3.7 / HCT 10.9 WBC 1.7 Cath - EF 35%; 90% LMain, 30% prox LAD, 95% mid LAD, 80% Cx, 20% OM1, 100% RCA. IABP placed augmented ~110. Currently CP free on 5L NC GI consulted , Hematology consulted 11/29 s/p 5 units PRBC infused Abd KUB noted , + ileus / large amount of stool for enemas today, CT abd and pelvis pending augmenting 1:1 augmentation pressure 107 on Heparin gtt, await eval by hematology to r/o malignancy, bone marrow suppression prior to scheduling of CABG 11/30 appreciate hematology input, MDS vs leukemia workup still pending ? timing for bone marrow bx still has IABP 1:1 augmenting 104 + distal pulses abdomen less distended/ small BM after enemas yesterday for upper GI today will need clearance from Hematology for surgery 2/ HGB stable, on heparin gtt stable for surgery in am will need Bone marrow BX post surgery at some point IABP1:1 12/03/16 Patient experienced respiratory failure yesterday afternoon with hypoxia and increased work of breathing leading to hemodynamic compromise and reintubation. He was then hypotensive on levophed and dopamine with propofol sedation in the setting of a low EF. He also experienced some increased chest tube drainage which has subsided after factor replacement. He has an underlying pancytopenia which has not been adequately evaluated at this time, but was critical from the recent ND. Overnight, he has improved steadily with oliguria being the only issue currently. 2/ Overnight events noted Did not tolerate IABP standby with significant drop in hemodynamics. Will maintain IABP for now Platelets dropped to 39k from 128k yesterday. Will transfuse to avoid continued bleeding Wean Vent as tolerated Creatinine up. Will monitor 2/5 Overnight events noted Remains critical Pancytopenic and coagulopathic Transfusing PRBC and Platelets On Maximal ventilatory support with Pressure control and chemical paralysis with marginal oxygenation On multiple Pressors with marginal hemodynamics Remains anuric with rising creatinine poor ventricular function on preliminary ECHO with no evidence of tamponade Greatly appreciate Intensivists input and assistance Prognosis remains poor given above parameters Objective: Vital Signs Date Time Temp Pulse Resp B/P Pulse Ox O2 Delivery O2 Flow Rate FiO2 12/04/16 06:16 87 100 12/04/16 06:05 91 100 12/04/16 06:00 98/76 12/04/16 05:15 80 100 12/04/16 05:00 105/53 12/04/16 04:00 71/45 12/04/16 03:57 71 100 12/04/16 03:30 73 Mechanical Ventilator 100 12/04/16 03:30 100 12/04/16 03:30 124 12/04/16 03:00 95/50 12/04/16 02:00 95/59 12/04/16 01:00 97/58 12/04/16 00:56 93 100 12/04/16 00:00 100.8 110 18 97/45 95 12/04/16 00:00 100 12/04/16 00:00 95/58 12/03/16 23:37 103 12/03/16 23:13 94 Mechanical Ventilator 100 12/03/16 23:00 101/61 12/03/16 22:06 100 12/03/16 22:00 105/63 12/03/16 21:55 98 100 12/03/16 21:04 89 100 12/03/16 21:00 110/64 12/03/16 21:00 89 Mechanical Ventilator 100 12/03/16 20:00 100.8 96 24 136/54 92 12/03/16 20:00 112/61 12/03/16 20:00 92 Mechanical Ventilator 80 12/03/16 20:00 80 12/03/16 19:57 92 80 12/03/16 19:00 109/60 12/03/16 18:54 99 12/03/16 18:00 74/46 12/03/16 17:00 71/45 12/03/16 16:00 60 12/03/16 16:00 93/55 12/03/16 15:55 95 70 12/03/16 15:00 88 12/03/16 15:00 93/55 12/03/16 15:00 100.1 85 14 101/63 92 12/03/16 15:00 93 Mechanical Ventilator 70 12/03/16 14:00 92/56 12/03/16 13:00 102/63 12/03/16 12:18 95 70 12/03/16 12:00 60 12/03/16 12:00 103/54 12/03/16 11:00 94 Mechanical Ventilator 60 12/03/16 11:00 99.2 86 17 147/52 93 12/03/16 11:00 86 12/03/16 11:00 98/62 12/03/16 10:00 107/68 12/03/16 09:59 90 60 12/03/16 09:07 109/72 Labs: Laboratory Tests Test 12/03/16 12/04/16 12/04/16 12/04/16 23:50 02:55 02:59 04:54 White Blood Count 3.5 TH/MM3 (4.0-11.0) Red Blood Count 2.90 MIL/MM3 (4.50-5.90) Hemoglobin 8.6 GM/DL (13.0-17.0) Hematocrit 24.8 % (39.0-51.0) Mean Corpuscular Volume 85.4 FL (80.0-100.0) Mean Corpuscular Hemoglobin 29.6 PG (27.0-34.0) Mean Corpuscular Hemoglobin 34.6 % Concent (32.0-36.0) Red Cell Distribution Width 16.6 % (11.6-17.2) Platelet Count 34 TH/MM3 (150-450) Mean Platelet Volume 7.7 FL (7.0-11.0) Hematology Comments Prothrombin Time 19.8 SEC (9.8-11.6) Prothromb Time International 1.7 RATIO Ratio Activated Partial 54.6 SEC Thromboplast Time (24.3-30.1) Fibrinogen 230 mg/dL (181-393) Blood Bank Comment Blood Type O NEGATIVE Crossmatch Leukocyte-Reduced Leukocyte-Reduced Red Blood Red Blood Cells Cells Test 12/04/16 12/04/16 12/04/16 05:05 05:48 06:03 White Blood Count 1.7 TH/MM3 (4.0-11.0) Red Blood Count 2.79 MIL/MM3 (4.50-5.90) Hemoglobin 8.2 GM/DL (13.0-17.0) Hematocrit 24.2 % (39.0-51.0) Mean Corpuscular Volume 86.6 FL (80.0-100.0) Mean Corpuscular Hemoglobin 29.3 PG (27.0-34.0) Mean Corpuscular Hemoglobin 33.9 % Concent (32.0-36.0) Red Cell Distribution Width 16.7 % (11.6-17.2) Platelet Count 21 TH/MM3 (150-450) Mean Platelet Volume 8.0 FL (7.0-11.0) Neutrophils (%) (Auto) % (16.0-70.0) Lymphocytes (%) (Auto) % (9.0-44.0) Monocytes (%) (Auto) % (0.0-8.0) Eosinophils (%) (Auto) % (0.0-4.0) Basophils (%) (Auto) % (0.0-2.0) Neutrophils # (Auto) TH/MM3 (1.8-7.7) Lymphocytes # (Auto) TH/MM3 (1.0-4.8) Monocytes # (Auto) TH/MM3 (0-0.9) Eosinophils # (Auto) TH/MM3 (0-0.4) Basophils # (Auto) TH/MM3 (0-0.2) CBC Comment AUTO DIFF Sodium Level 146 MEQ/L (136-145) Potassium Level 4.3 MEQ/L (3.5-5.1) Chloride Level 113 MEQ/L (98-107) Carbon Dioxide Level 19.5 MEQ/L (21.0-32.0) Anion Gap 14 MEQ/L (5-15) Blood Urea Nitrogen 45 MG/DL (7-18) Creatinine 3.92 MG/DL (0.60-1.30) Estimat Glomerular Filtration 16 ML/MIN (>89) Rate Random Glucose 99 MG/DL (74-106) Calcium Level 6.8 MG/DL (8.5-10.1) Protein Corrected Calcium 7.9 MG/DL (8.5-10.1) Phosphorus Level 4.5 MG/DL (2.5-4.9) Magnesium Level 2.1 MG/DL (1.5-2.5) Total Bilirubin 1.9 MG/DL (0.2-1.0) Aspartate Amino Transf 317 U/L (15-37) (AST/SGOT) Alanine Aminotransferase 68 U/L (12-78) (ALT/SGPT) Alkaline Phosphatase 41 U/L (45-117) Total Protein 4.9 GM/DL (6.4-8.2) Albumin 2.9 GM/DL (3.4-5.0) Blood Gas Puncture Site ART LINE Blood Gas Patient Temperature 98.6 Blood Gas HCO3 16 mmol/L (22-26) Blood Gas Base Excess -13.5 mmol/L (-2-2) Blood Gas Oxygen Saturation 77 % (90-100) Arterial Blood pH 7.00 (7.380-7.420) Arterial Blood Partial 69 mmHg (38-42) Pressure CO2 Arterial Blood Partial 60 mmHg Pressure O2 (61-120) Arterial Blood Oxygen Content 9.8 Vol % (12.0-20.0) Arterial Blood 1.9 % (0-4) Carboxyhemoglobin Arterial Blood Methemoglobin 1.3 % (0-2) Blood Gas Hemoglobin 9.0 G/DL (12.0-16.0) Oxygen Delivery Device VENTILATOR Blood Gas Ventilator Setting PC/AC Blood Gas Inspired Oxygen 100 % Prothrombin Time 31.4 SEC (9.8-11.6) Prothromb Time International 2.7 RATIO Ratio Activated Partial 86.3 SEC Thromboplast Time (24.3-30.1) Fibrinogen 237 mg/dL (181-393) Lactic Acid Level 6.0 mmol/L (0.4-2.0) Blood Type O NEGATIVE Antibody Screen NEGATIVE Crossmatch Leukocyte-Reduced Red Blood Cells Blood Bank Comment Result Diagram: 12/04/16 7374 12/04/16 0285 (1) Chest pain (2) Abnormal EKG (3) STEMI (ST elevation myocardial infarction) Plan: heparin gtt, IABP 1:1, start BB when BP improves unable to start statin 2/2 elevated LFT no ASA for now 2/2 severe profound anemia on admission s/p upper GI, will need eval by GI and Heme as to when it is safe to start currently on heparin gtt (4) Profound anemia Plan: s/p 5 units PRBC HGB 9.4 hematolgy following GI s/p upper GI 2/ Schatzki ring Hiatal hernia on PPI, GI has signed off (5) Leukopenia Plan: further workup pending (6) Ileus Plan: constipation, abd pain / improved for enemas , relistor for ct abd/ pelvis noted, no free air Problem Qualifiers (1) Chest pain: Qualified Code: R07.9 - Chest pain, unspecified type (2) Profound anemia: Qualified Code: D64.9 - Anemia, unspecified type Pk King MD Dec 04, 2016 08:14
[2016-12-04] MEDS ORDERED: ANTI-INHIBITOR COAGULANT COMPLEX 100 UNIT INJ IV ONE (08:30)
--- NOTE | 2016-12-04 08:31 | RADRPT ---
EXAM DATE/TIME: 12/04/2016 07:58 [facility] COMPARISON: CT ABDOMEN & PELVIS W/O CONTRAST, November 29, 2016, 17:22. INDICATIONS : Abdominal distention and anemia. MEDICAL HISTORY : Chronic obstructive pulmonary disease. Seizures. Hearing loss. Arthritis. Blood transfusion. Left s capular nerve injury. SURGICAL HISTORY : Fusion, cervical. Hernia repair x 2. Upper jaw repair. ENCOUNTER: Subsequent ACUITY: 1 day PAIN SCORE: Nonresponsive. LOCATION: Abdomen. AREA EVALUATED: Abdominal quadrants. FINDINGS: Imaging of the abdomen and pelvis was performed. No abdominal ascites. No retroperitoneal hemorrhage identified. Spleen is mildly prominent measuring 13.4 cm. Limited visualization of the liver is unrem arkable. CONCLUSION: No retroperitoneal hemorrhage. Daryn Raymond MD on December 04, 2016 at 8:25 Board Certified Radiologist. This report was verified electronically.
[2016-12-04 08:56] LABS: BLOOD GAS BASE EXCESS -18.1 mmol/L (-2-2); BLOOD GAS CARBOXYHEMOGLOBIN 1.3 % (0-4); BLOOD GAS HCO3 15 mmol/L (22-26); BLOOD GAS PCO2 82 mmHg (38-42); BLOOD GAS PO2 98 mmHg (61-120); BLOOD GAS TOTAL HGB 7.7 G/DL (12.0-16.0)
[2016-12-04 08:57] LABS: BLOOD GAS O2 HGB SATURATION 90 % (90-100); BLOOD GAS OXYGEN CONTENT 95.2 Vol % (12.0-20.0); CRITICAL VALUE YES; OXYGEN DEVICE VENTILATOR
[2016-12-04 08:58] LABS: DRAW SITE ART LINE; FIO2 100 %; STAT YES; TEMP CORR TO 98.6; VENT SETTINGS PCAC28/IP22/IT.7PEEP
[2016-12-04] MEDS ORDERED: NOREPINEPHRINE 4 MG/4 ML AMP ONE (09:10)
[2016-12-04] MEDS ORDERED: SODIUM BICARBONATE 8.4% INJ 150 MEQ in DEXTROSE 5% IN WATE 1000ML INJ 850 ML IV SCH ×2 (09:15)
[2016-12-04] MEDS ORDERED: FACTOR VIIA (RECOMB) 2 MG VIAL IV PUSH ONE (09:15)
[2016-12-04] MEDS: SODIUM BICARBONATE 8.4% INJ 50 MEQ/50 ML SYR SCH ×2 (09:23→09:47)
[2016-12-04] MEDS ORDERED: EPINEPHrine HCL (1:10,000) 1 MG/10 ML SYRINGE ONE (09:36)
[2016-12-04] MEDS ORDERED: EPINEPHrine (1:1000) INJ 2 MG in DEXTROSE 5% IN WATER INJ 248 ML IV SCH ×2 (09:45)
[2016-12-04] MEDS ORDERED: DEXTROSE 5% IN WATE 1000ML INJ 1,000 ML SCH (10:00)
[2016-12-04 10:20] LABS: BANDS 23 % (0-6); CORRECTED NUCLEATED RBC 14 /100 WBC (0-0); METAMYELOCYTES 3 % (0-1); MYELOCYTES 2 % (0-0); NEUTROPHIL # MANUAL DIFF 0.6 TH/MM3 (1.8-7.7); POLYS (SEG NEUTROPHILS) 7 % (16-70); PROMYELOCYTES 1 % (0-0); WBC DIFF SAMPLE 100
[2016-12-04 10:21] LABS: ACANTHOCYTES OCC (NORMAL); HELMET CELLS OCC (NORMAL); OVALOCYTES 1+ (NORMAL); PLATELET ESTIMATE SMEAR LOW (NORMAL); PLATELET MORPHOLOGY ENLARGED (NORMAL); SCAN/DIFF FINAL DIFF MANUAL
[2016-12-04 10:29] LABS: DOHLE BODIES PRESENT (NONE SEEN); TOXIC GRANULATION 2+ (NORMAL)
--- NOTE | 2016-12-04 10:59 | PD.PROCEDR ---
Procedure Note Procedure CODE BLUE note @ 0919, patient went to PEA. Chest compressions were initiated with more placed underneath. Sedation verbal order to be turned off. Patient receiving exceptional volume from vasopressors/Patient receiving multiple vasopressors including norepinephrine at 100 g per minute, vasopressin 250 g per minute, epinephrine drip at 20 g per minute, dopamine at 20 mcg/kg per minute, vasopressin at 0.04 units per minute fluids wide open. Patient was manually bag using Ambu bag 100% FiO2 with PEEP valve at 20. Patient received a total of 3 mg epinephrine, 4 ampules of sodium bicarbonate and 1 g calcium chloride. ROSC at 0924. Patient was placed back on the ventilator PC/AC 28/600/0.8/15/ 100. Saturations were upper 80s to low 90s. At 932, patient went back to PEA. Patient received 11 mg epinephrine, 5 ampules of sodium bicarbonate and 1 g calcium chloride. Patient had ROSC by 0954. During this time, noted hemoglobin 6.7 and 2 units PRBCs, 2 FFP and 2 platelets ordered stat. Patient had oozing from ET tube and chest tube during chest compressions. These medications were infused. At 0555, patient was back and PEA arrest. Received 2 mg epinephrine. At 1006. Code was called. Patient had fixed and dilated pupils. No gag. No palpable pulses. Did not withdraw to pain. No spontaneous breaths. Time of 1006 Notified brother Demetrius at bedside. Dr. King/CT surgeon notified and at bedside. Cardiology will be notified. Shailesh Skelton MD Dec 04, 2016 10:59
[2016-12-04] MEDS ORDERED: EPINEPHrine HCL (1:10,000) 1 MG/10 ML SYRINGE IV ONE ×3 (14:05)
[2016-12-04] MEDS ORDERED: SODIUM BICARBONATE 8.4% INJ 50 MEQ/50 ML SYR IV ONE ×2 (14:05)
[2016-12-04] MEDS ORDERED: CALCIUM CHLORIDE 10% SOLN 13.6 MEQ/10 ML SYR IV ONE (14:05)
--- NOTE | 2016-12-04 14:22 | EKG ---
Date Performed: 12/03/2016 Time Performed: 02:59:10 PTAGE: 61 years EKG: Sinus rhythm Short IN interval Extensive ST-T changes may be due to myocardial ischemia When compared to previous tracing, the significant ischemic Changes previously noted have improved. Clinical correlation is st rongly recommended. Abnormal ECG PREVIOUS TRACING : 11/29/2016 03.24 DOCTOR: Vance Magallanes Interpretating Date/Time 12/04/2016 14:20:45
[2016-12-04 15:01] LABS: HEPARIN AB OD 0.102 O.D. (0.000-0.300); HEPARIN INDUCED PLATELET AB NEGATIVE (NEGATIVE)
--- NOTE | 2016-12-22 13:10 | HHI.DS ---
Discharge Summary Admission Date Nov 28, 2016 at 08:04 Discharge Date: Dec 04, 2016 ( 12/04/1709:06 am) Admitting Diagnosis chest pain, abnormal EKG (1) Ileus (2) Leukopenia Diagnosis: Principal (3) Abnormal EKG Diagnosis: Principal (4) STEMI (ST elevation myocardial infarction) Diagnosis: Principal (5) Profound anemia Diagnosis: Principal (6) CAD (coronary artery disease) Diagnosis: Principal (7) S/P CABG x 3 Diagnosis: Secondary Procedures EGD on 12/01 which showed Schatzki's ring and hiatal hernia. Hiatal hernia may contribute to anemia but usually this would be microcytic. Urgent CABG x 3 12/02/16 LAWS to LAD SVG to L PDA SVG to OM1 EVH SIMÓN INTUBATION: The patient was put in optimal position for the procedure. Rapid sequence intubation was initiated by me using 20 milligrams of etomidate IV and 50 milligrams of succinylcholine IV. Direct laryngoscopy with Mac 4 blade grade 1 view. The patient was intubated with a 8.0 cuffed endotracheal tube. Tube placement was confirmed by visualization of the tube and balloon passing through the cords, capnometry and subsequent chest x-ray. Breath sounds were equal and well aerated bilaterally postintubation. No breath sounds over stomach. Patient tolerated procedure well. Douglas Laurent MD Dec 02, 2016 17:54 DATE: HEMODIALYSIS LINE PLACEMENT: Left internal jugular vein. Ultrasound-guided INDICATION: Hemodialysis access CODE BLUE note @ 0919, patient went to PEA. Chest compressions were initiated with more placed underneath. Sedation verbal order to be turned off. Patient receiving exceptional volume from vasopressors/Patient receiving multiple vasopressors including norepinephrine at 100 g per minute, vasopressin 250 g per minute, epinephrine drip at 20 g per minute, dopamine at 20 mcg/kg per minute, vasopressin at 0.04 units per minute fluids wide open. Patient was manually bag using Ambu bag 100% FiO2 with PEEP valve at 20. Patient received a total of 3 mg epinephrine, 4 ampules of sodium bicarbonate and 1 g calcium chloride. ROSC at 0924. Patient was placed back on the ventilator PC/AC 28/600/0.8/15/ 100. Saturations were upper 80s to low 90s. At 932, patient went back to [facility]. Patient received 11 mg epinephrine, 5 ampules of sodium bicarbonate and 1 g calcium chloride. Patient had ROSC by 0954. During this time, noted hemoglobin 6.7 and 2 units PRBCs, 2 FFP and 2 platelets ordered stat. Patient had oozing from ET tube and chest tube during chest compressions. These medications were infused. At 0555, patient was back and PEA arrest. Received 2 mg epinephrine. At 1006. Code was called. Patient had fixed and dilated pupils. No gag. No palpable pulses. Did not withdraw to pain. No spontaneous breaths. Time of 1006 Notified brother Demetrius at bedside. Dr. King/CT surgeon notified and at bedside. Cardiology will be notified. Shailesh Skelton MD Dec 04, 2016 10:59 Brief History 61 yo male.. DOA 11/28/16. PMH LBP, tobaccoism, colon polyps, R ing hernia repair x2, C -spine x2 and occ ETOH ([place]) presents to ED with ongoing "burning " CP present for several weeks exacerbated today. At rest. Received NTG some relief. EKG changes, STT - inf and lat leads. Takes ASA daily since bro from "his aorta" Hgb low ~ 3. Brown stools acc to pt. Hx colon polys - benign 2 years ago w/[facility] lab/ STEMI , HGB 3.7 / HCT 10.9 WBC 1.7 pt recieved total of 17 units PRBC, 2 units of FFP and 4 units of PLT Cath - EF 35%; 90% LMain, 30% prox LAD, 95% mid LAD, 80% Cx, 20% OM1, 100% RCA. IABP placed augmented ~110. eval by GI for profound anemia also by hematology / concern for myelodysplastic syndrome Imaging Last Impressions Chest X-Ray 12/04/16 0600 Signed Impressions: Service Date/Time: Sunday, December 04, 2016 03:25 - CONCLUSION: 1. Increased right basilar opacity likely representing small pleural effusion with associated volume loss and/or consolidation. 2. Persistent airspace consolidation in the left mid and lower lung zone. 3. Left chest tube remains present no pneumothorax is visualized. Mehran Rivero MD Abdomen Ultrasound 12/04/16 0000 Signed Impressions: Service Date/Time: Sunday, December 04, 2016 07:58 - CONCLUSION: No retroperitoneal hemorrhage. Daryn Raymond MD Renal Ultrasound 12/03/16 0000 Signed Impressions: Service Date/Time: Saturday, December 03, 2016 15:34 - CONCLUSION: 1. Unremarkable renal ultrasound. Shakir Meier MD Abdomen/Pelvis CT 11/29/16 0000 Signed Impressions: Service Date/Time: Tuesday, November 29, 2016 17:22 - CONCLUSION: No evidence of retroperitoneal hemorrhage or etiology for anemia is identified. There is air lucency within the descending aorta I suspect is artifactual but I cannot confirm any definite metal. Bowel gas pattern is unremarkable. Diverticulosis without evidence of diverticulitis. Alan Gabriel MD Abdomen X-Ray 11/29/16 0000 Signed Impressions: Service Date/Time: Tuesday, November 29, 2016 10:38 - CONCLUSION: No significant change in the overall bowel gas pattern compared to the prior study. Pedrito Gregg MD Lower Extremity Ultrasound 11/28/16 0000 Signed Impressions: Service Date/Time: Monday, November 28, 2016 13:27 - CONCLUSION: 1. Venous mapping as above Abiel Barrow MD Carotid Artery Ultrasound 11/28/16 0000 Signed Impressions: Service Date/Time: Monday, November 28, 2016 12:41 - CONCLUSION: Negative examination for a hemodynamically significant carotid stenosis. Maicol Mccloud MD [facility] s/p 5 units PRBC infused Abd KUB noted , + ileus / large amount of stool for enemas today, CT abd and pelvis pending augmenting 1:1 augmentation pressure 107 on Heparin gtt, await eval by hematology to r/o malignancy, bone marrow suppression prior to scheduling of CABG 11/30 appreciate hematology input, MDS vs leukemia workup still pending ? timing for bone marrow bx still has IABP 1:1 augmenting 104 + distal pulses abdomen less distended/ small BM after enemas yesterday for upper GI today will need clearance from Hematology for surgery 2/2 HGB stable, on heparin gtt stable for surgery in am will need Bone marrow BX post surgery at some point IABP1:1 12/03/16 Patient experienced respiratory failure yesterday afternoon with hypoxia and increased work of breathing leading to hemodynamic compromise and reintubation. He was then hypotensive on levophed and dopamine with propofol sedation in the setting of a low EF. He also experienced some increased chest tube drainage which has subsided after factor replacement. He has an underlying pancytopenia which has not been adequately evaluated at this time, but was critical from the recent [place]. Overnight, he has improved steadily with oliguria being the only issue currently. 2/4 Overnight events noted Did not tolerate IABP standby with significant drop in hemodynamics. Will maintain IABP for now Platelets dropped to 39k from 128k yesterday. Will transfuse to avoid continued bleeding Wean Vent as tolerated Creatinine up. Will monitor 2/5 Overnight events noted Remains critical Pancytopenic and coagulopathic Transfusing PRBC and Platelets On Maximal ventilatory support with Pressure control and chemical paralysis with marginal oxygenation On multiple Pressors with marginal hemodynamics Remains anuric with rising creatinine poor ventricular function on preliminary ECHO with no evidence of tamponade Greatly appreciate Intensivists input and assistance Prognosis remains poor given above parameters CODE BLUE note @ 0919, patient went to [facility]. Chest compressions were initiated with more placed underneath. Sedation verbal order to be turned off. Patient receiving exceptional volume from vasopressors/Patient receiving multiple vasopressors including norepinephrine at 100 g per minute, vasopressin 250 g per minute, epinephrine drip at 20 g per minute, dopamine at 20 mcg/kg per minute, vasopressin at 0.04 units per minute fluids wide open. Patient was manually bag using Ambu bag 100% FiO2 with PEEP valve at 20. Patient received a total of 3 mg epinephrine, 4 ampules of sodium bicarbonate and 1 g calcium chloride. ROSC at 0924. Patient was placed back on the ventilator PC/AC 28/600/0.8/15/ 100. Saturations were upper 80s to low 90s. At 932, patient went back to PEA. Patient received 11 mg epinephrine, 5 ampules of sodium bicarbonate and 1 g calcium chloride. Patient had ROSC by 0954. During this time, noted hemoglobin 6.7 and 2 units PRBCs, 2 FFP and 2 platelets ordered stat. Patient had oozing from ET tube and chest tube during chest compressions. These medications were infused. At 0555, patient was back and PEA arrest. Received 2 mg epinephrine. At 1006. Code was called. Patient had fixed and dilated pupils. No gag. No palpable pulses. Did not withdraw to pain. No spontaneous breaths. Time of 1006 Notified brother Demetrius at bedside. Dr. King/CT surgeon notified and at bedside. Cardiology will be notified. Shailesh Skelton MD Dec 04, 2016 10:59 Marianela Jimenez Dec 22, 2016 13:10
== END 2016-12-04 14:06 | disposition expired | DRG 233 ==
LOC: NEPC 07:35 → NEDA 08:04 → HCVR 10:03
PROVIDERS: ADMIT Internal Medicine; ATTEND Internal Medicine
PROC: 4A023N7 Measurement of Cardiac Sampling and Pressure, Left Heart, Percutaneous Approach (ICD-10-PCS; 2016-11-28)
PROC: 5A02210 Assistance with Cardiac Output using Balloon Pump, Continuous (ICD-10-PCS; 2016-11-28)
PROC: 4A023N7 Measurement of Cardiac Sampling and Pressure, Left Heart, Percutaneous Approach (ICD-10-PCS; 2016-11-28)
PROC: B2111ZZ Fluoroscopy of Multiple Coronary Arteries using Low Osmolar Contrast (ICD-10-PCS; 2016-11-28)
PROC: B2151ZZ Fluoroscopy of Left Heart using Low Osmolar Contrast (ICD-10-PCS; 2016-11-28)
PROC: B3101ZZ Fluoroscopy of Thoracic Aorta using Low Osmolar Contrast (ICD-10-PCS; 2016-11-28)
PROC: 30233N1 Transfusion of Nonautologous Red Blood Cells into Peripheral Vein, Percutaneous Approach (ICD-10-PCS; 2016-11-28)
PROC: 0DJ08ZZ Inspection of Upper Intestinal Tract, Via Natural or Artificial Opening Endoscopic (ICD-10-PCS; 2016-11-30)
PROC: 5A1945Z Respiratory Ventilation, 24-96 Consecutive Hours (ICD-10-PCS; 2016-12-02)
PROC: 021109W Bypass Coronary Artery, Two Arteries from Aorta with Autologous Venous Tissue, Open Approach (ICD-10-PCS; 2016-12-02)
PROC: 06BQ4ZZ Excision of Left Saphenous Vein, Percutaneous Endoscopic Approach (ICD-10-PCS; 2016-12-02)
PROC: B246ZZ4 Ultrasonography of Right and Left Heart, Transesophageal (ICD-10-PCS; 2016-12-02)
PROC: 5A1221Z Performance of Cardiac Output, Continuous (ICD-10-PCS; 2016-12-02)
PROC: 0BH17EZ Insertion of Endotracheal Airway into Trachea, Via Natural or Artificial Opening (ICD-10-PCS; 2016-12-02)
PROC: 6A551Z2 Pheresis of Platelets, Multiple (ICD-10-PCS; 2016-12-02)
PROC: 02100Z9 Bypass Coronary Artery, One Artery from Left Internal Mammary, Open Approach (ICD-10-PCS; principal; 2016-12-02 06:59)
PROC: 05HN33Z Insertion of Infusion Device into Left Internal Jugular Vein, Percutaneous Approach (ICD-10-PCS; 2016-12-03)
PROC: 5A1D00Z (ICD-10-PCS; 2016-12-03)
PROC: 5A12012 Performance of Cardiac Output, Single, Manual (ICD-10-PCS; 2016-12-04)
PROC: 30233K1 Transfusion of Nonautologous Frozen Plasma into Peripheral Vein, Percutaneous Approach (ICD-10-PCS; 2016-12-04)
DX: I21.3 ST elevation (STEMI) myocardial infarction of unspecified site (principal); N17.0 Acute kidney failure with tubular necrosis; J96.90 Respiratory failure, unspecified, unspecified whether with hypoxia or hypercapnia; R57.0 Cardiogenic shock; D68.9 Coagulation defect, unspecified; E87.2 Acidosis; K56.7 Ileus, unspecified; J98.11 Atelectasis; K22.2 Esophageal obstruction; D70.9 Neutropenia, unspecified; E88.09 Other disorders of plasma-protein metabolism, not elsewhere classified; I25.119 Atherosclerotic heart disease of native coronary artery with unspecified angina pectoris; J44.9 Chronic obstructive pulmonary disease, unspecified; H91.90 Unspecified hearing loss, unspecified ear; F17.210 Nicotine dependence, cigarettes, uncomplicated; M50.30 Other cervical disc degeneration, unspecified cervical region; R74.0 Nonspecific elevation of levels of transaminase and lactic acid dehydrogenase [LDH]; D53.9 Nutritional anemia, unspecified; K44.9 Diaphragmatic hernia without obstruction or gangrene; Z86.010 Personal history of colon polyps; Z98.1 Arthrodesis status; Z82.49 Family history of ischemic heart disease and other diseases of the circulatory system; Z80.1 Family history of malignant neoplasm of trachea, bronchus and lung; D46.9 Myelodysplastic syndrome, unspecified; E87.6 Hypokalemia; M19.90 Unspecified osteoarthritis, unspecified site; G89.29 Other chronic pain; K76.9 Liver disease, unspecified
CPT/HCPCS: 31500; 33967; 36430; 71010; 74000; 74176; 76700; 76705; 76775; 76937; 80048; 80053; 80061; 80074; 80076; 81001; 81342; 82150; 82247; 82248; 82435; 82550; 82552; 82565; 82570; 82607; 82746; 82784; 82805; 82947; 82948; 83010; 83520; 83605; 83615; 83690; 83735; 84100; 84132; 84165; 84295; 84300; 84443; 84484; 84520; 85007; 85014; 85018; 85027; 85044; 85060; 85384; 85610; 85730; 86022; 86038; 86256; 86703; 86850; 86880; 86900; 86901; 86920; 86927; 87040; 87205; 87641; 88184; 88185; 88368; 88377; 92950; 93005; 93306; 93318; 93458; 93567; 93880; 93970; 93998; 94002; 94003; 94010; 94150; 94640; 94664; 94799; C1769; C1887; C1893; C9113; C9399; J0131; J0171; J0282; J0330; J0461; J0583; J0690; J1265; J1644; J1720; J1940; J2060; J2150; J2212; J2250; J2370; J2405; J2440; J2550; J2720; J2930; J3010; J3370; J3475; J3480; J7030; J7040; J7050; J7060; J7189; J7198; P9016; P9017; P9035; P9047; Q9963; Q9967